=== PATIENT | male | born 1970 | race Caucasian/White ===

== ENCOUNTER → 2016-12-28 | Outpatient (CLI) | payer OTHER ==
--- NOTE | 2016-12-28 14:19 | CT ---
EXAMINATION TYPE: CT abdomen pelvis w con, CT abdomen wo con DATE OF EXAM: 12/28/2016 COMPARISON: NONE HISTORY: Liver hemangioma, nausea, diarrhea. Fullness after eating, change in bowel habits (accessio n [id number]), Liver hemangioma, Nausea, diarrhea, change in bowel habits and fullness after eating (ac cession [id number]) CT DLP: 1331.0 mGycm CONTRAST: Unenhanced followed by CT scan of the abdomen and pelvis is performed with Oral Contrast and with IV Contrast, patient injected with 100 ml mL of Omnipaque 300. FINDINGS: LUNG BASES-: No visible nodule. No infiltrate. LIVER/GB: No calcified gallstones. There is a simple cyst anterior segment right hepatic lobe measu ring 1.7 cm. I do not see evidence for hemangioma or solid mass at this time within the liver. Biliar y tree is of normal caliber. PANCREAS: No inflammation. No distinct mass. SPLEEN: No splenic enlargement. No lesion seen. ADRENALS: No nodule. No thickening. KIDNEYS/BLADDER: No hydronephrosis. No nephrolithiasis. No disctinct renal mass. Urinary bladder g rossly unremarkable. BOWEL: Normal appendix. Wall thickening involving the sigmoid colon and rectum may reflect proctocoli tis. Correlate clinically. The remainder of the colon and small bowel are of normal caliber. GENITAL ORGANS: No gross abnormality. LYMPH NODES: Multiple small predominantly subcentimeter lymph nodes within the small bowel mesentery although one or 2 lymph nodes measure slightly greater than 1 cm. This is nonspecific. AORTA: No significant abnormality. OSSEOUS STRUCTURES: No significant abnormality is seen. OTHER: No significant additional abnormality is seen. IMPRESSION: 1. Simple hepatic cyst. 2. Correlate for proctocolitis. 3. Nonspecific lymph nodes within the small bowel mesentery as discussed.
== END | disposition home or self-care (01) ==
LOC: RADCTMAIN 11:42
PROVIDERS: ATTEND Family Medicine
DX: K76.89 Other specified diseases of liver (principal); K51.919 Ulcerative colitis, unspecified with unspecified complications; R59.0 Localized enlarged lymph nodes; R19.7 Diarrhea, unspecified
CPT/HCPCS: 74150; 74177; Q9967

== ENCOUNTER 2017-10-10 08:01 | Observation (INO) | payer OTHER ==
[2017-10-10] MEDS ORDERED: SODIUM CHLORIDE 0.9% 1,000 ML IV STA (08:23)
[2017-10-10] MEDS ORDERED: ONDANSETRON 4 MG/2 ML VIAL IVP STA (08:23)
[2017-10-10] MEDS ORDERED: SODIUM CHLORIDE 0.9% 500 ML IV STA (08:23)
[2017-10-10] MEDS ORDERED: LORazepam 1 MG TAB PO STA (08:25)
[2017-10-10 08:57] LABS: Basophils % (A) 0 %; Eosinophils # (A) 0.2 k/uL (0-0.7); Eosinophils % (A) 2 %; HCT 45.9 % (39.0-53.0); HGB 15.6 gm/dL (13.0-17.5); Lymphocytes # (A) 1.8 k/uL (1.0-4.8); Lymphocytes % (A) 26 %; MCH 27.8 pg (25.0-35.0); MCHC 33.9 g/dL (31.0-37.0); MCV 81.8 fL (80.0-100.0); Mean Platelet Volume 9.1; Monocytes # (A) 0.4 k/uL (0-1.0); Monocytes % (A) 6 %; Neutrophils # (A) 4.5 k/uL (1.3-7.7); Neutrophils % (A) 64 %; Platelet Count 153 k/uL (150-450); RBC 5.61 m/uL (4.30-5.90); RDW 12.7 % (11.5-15.5); WBC 7.1 k/uL (3.8-10.6)
--- NOTE | 2017-10-10 09:02 | CT ---
EXAMINATION TYPE: CT brain wo con DATE OF EXAM: 10/10/2017 COMPARISON: NONE HISTORY: Headache CT DLP: 1201 mGycm. Automated Exposure Control for Dose Reduction was Utilized. TECHNIQUE: CT scan of the head is performed without contrast. FINDINGS: There is no acute intracranial hemorrhage, mass effect, or midline shift identified. The ventricles and sulci are within normal limits in size. Changes of chronic sinusitis noted. IMPRESSION: No acute intracranial hemorrhage, mass effect, or midline shift is seen. Correlate for c hronic sinusitis.
[2017-10-10 09:13] LABS: ALT 29 U/L (21-72); AST 21 U/L (17-59); Albumin 4.1 g/dL (3.5-5.0); Alkaline Phosphatase 62 U/L (38-126); Anion Gap 12 mmol/L; Blood Urea Nitrogen 18 mg/dL (9-20); C Reactive Protein <5.0 mg/L (<10.0); Calcium 8.9 mg/dL (8.4-10.2); Carbon Dioxide 26 mmol/L (22-30); Chloride 105 mmol/L (98-107); Glucose 106 mg/dL (74-99); Potassium 4.3 mmol/L (3.5-5.1); Sodium 143 mmol/L (137-145); Total Bilirubin 0.7 mg/dL (0.2-1.3); Total Protein 6.7 g/dL (6.3-8.2)
--- NOTE | 2017-10-10 09:32 | ED ---
Dizziness HPI - General Chief Complaint: Dizziness Stated Complaint: Dizziness Time Seen by Provider: 10/10/17 08:14 Source: patient Mode of arrival: ambulatory Limitations: no limitations - History of Present Illness Initial Comments: 47 years old male resents with the dizziness started this morning, he went to bed last night feeling fine he has some alcohol last night. His complaining about some headaches, dizziness no blurred vision no slurred speech no neck stiffness no chest pain no shortness of breath no abdominal pain no frequency urgency dysuria his gait was unsteady this morning actually he fell he denies any any head injury or any injuries to the upper or lower extremities as well as her to sulfa (fall this morning. Review of system is unremarkable otherwise - Related Data Home Medications Medication Instructions Recorded Confirmed No Known Home Medications [No 10/10/17 10/10/17 Known Home Medications] Allergies Allergy/AdvReac Type Severity Reaction Status Date / Time No Known Allergies Allergy Verified 10/10/17 08:55 Review of Systems ROS Statement: Those systems with pertinent positive or pertinent negative responses have been documented in the HPI. ROS Other: All systems not noted in ROS Statement are negative. Past Medical History Past Medical History: No Reported History History of Any Multi-Drug Resistant Organisms: None Reported Past Surgical History: No Surgical Hx Reported Past Psychological History: No Psychological Hx Reported Smoking Status: Never smoker Past Alcohol Use History: Occasional Past Drug Use History: None Reported General Exam - General Exam Comments Initial Comments: General: The patient is awake , he looks pale and nauseous GCS is 15 Skin: Skin is warm and dry and no rashes or lesions are noted. Eye: Pupils are equal, round and reactive to light, extra-ocular movements are intact; there is normal conjunctiva bilaterally. Ears, nose, mouth and throat: There are moist mucous membranes and no oral lesions. Neck: The neck is supple, there is no tenderness or JVD. Cardiovascular: There is a regular rate and rhythm. No murmur, rub or gallop is appreciated. Respiratory: To auscultation bilateral, no wheezing no rhonchi no distress respiratory cardoza noticed Gastrointestinal: Soft, non-distended, non-tender abdomen without masses or organomegaly noted. There is no rebound or guarding present. Bowel sounds are unremarkable. Back: There is no tenderness to palpation in the midline. There is no obvious deformity. Musculoskeletal: Normal ROM, no tenderness, There is no pedal edema. There is no calf tenderness or swelling. No cords were appreciated. Neurological: CN II-XII intact, Cranial nerves III through XII are intact. There are no obvious motor or sensory deficits. Coordination appears grossly intact. Speech is normal. Psychiatric: Cooperative, appropriate mood & affect, normal judgment. Limitations: no limitations Course Vital Signs 10/10/17 10/10/17 10/10/17 08:03 09:43 11:02 Temperature 97.3 F L Pulse Rate 83 88 73 Respiratory 20 16 16 Rate Blood Pressure 157/85 136/79 145/73 O2 Sat by Pulse 98 96 96 Oximetry 10/10/17 13:05 Temperature Pulse Rate 61 Respiratory 14 Rate Blood Pressure 121/76 O2 Sat by Pulse 99 Oximetry Patient was reassessed again at 951, he still has his eyes closed and he still feels quite dizzy, concerned about a brainstem stem infarct his gait is quite unsteady verified and admit him under Dr. Wang service and will consult neurology EKG Findings - EKG Comments: EKG Findings:: Abdomen EKG is a normal sinus rhythm ventricular rate is 83 WV interval is 164 QRS duration is 86 QT/QTc is 370/434 review of this EKG showed no ST elevation or ST depression Medical Decision Making - Lab Data Result diagrams: 10/10/17 08:20 10/10/17 08:20 Lab Results 10/10/17 10/10/17 10/10/17 Range/Units 08:20 08:20 08:20 WBC 7.1 (3.8-10.6) k/uL RBC 5.61 (4.30-5.90) m/uL Hgb 15.6 (13.0-17.5) gm/dL Hct 45.9 (39.0-53.0) % MCV 81.8 (80.0-100.0) fL MCH 27.8 (25.0-35.0) pg MCHC 33.9 (31.0-37.0) g/dL RDW 12.7 (11.5-15.5) % Plt Count 153 (150-450) k/uL Neutrophils % 64 % Lymphocytes % 26 % Monocytes % 6 % Eosinophils % 2 % Basophils % 0 % Neutrophils # 4.5 (1.3-7.7) k/uL Lymphocytes # 1.8 (1.0-4.8) k/uL Monocytes # 0.4 (0-1.0) k/uL Eosinophils # 0.2 (0-0.7) k/uL Basophils # 0.0 (0-0.2) k/uL Sodium 143 (137-145) mmol/L Potassium 4.3 (3.5-5.1) mmol/L Chloride 105 (98-107) mmol/L Carbon Dioxide 26 (22-30) mmol/L Anion Gap 12 mmol/L BUN 18 (9-20) mg/dL Creatinine 0.95 (0.66-1.25) mg/dL Est GFR (CKD-EPI)AfAm >90 (>60 ml/min/1.73 sqM) Est GFR (CKD-EPI)NonAf >90 (>60 ml/min/1.73 sqM) Glucose 106 H (74-99) mg/dL Plasma Lactic Acid Delmer (0.7-2.0) mmol/L Calcium 8.9 (8.4-10.2) mg/dL Total Bilirubin 0.7 (0.2-1.3) mg/dL AST 21 (17-59) U/L ALT 29 (21-72) U/L Alkaline Phosphatase 62 (38-126) U/L Troponin I <0.012 (0.000-0.034) ng/mL C-Reactive Protein <5.0 (<10.0) mg/L Total Protein 6.7 (6.3-8.2) g/dL Albumin 4.1 (3.5-5.0) g/dL 10/10/17 Range/Units 08:20 WBC (3.8-10.6) k/uL RBC (4.30-5.90) m/uL Hgb (13.0-17.5) gm/dL Hct (39.0-53.0) % MCV (80.0-100.0) fL MCH (25.0-35.0) pg MCHC (31.0-37.0) g/dL RDW (11.5-15.5) % Plt Count (150-450) k/uL Neutrophils % % Lymphocytes % % Monocytes % % Eosinophils % % Basophils % % Neutrophils # (1.3-7.7) k/uL Lymphocytes # (1.0-4.8) k/uL Monocytes # (0-1.0) k/uL Eosinophils # (0-0.7) k/uL Basophils # (0-0.2) k/uL Sodium (137-145) mmol/L Potassium (3.5-5.1) mmol/L Chloride (98-107) mmol/L Carbon Dioxide (22-30) mmol/L Anion Gap mmol/L BUN (9-20) mg/dL Creatinine (0.66-1.25) mg/dL Est GFR (CKD-EPI)AfAm (>60 ml/min/1.73 sqM) Est GFR (CKD-EPI)NonAf (>60 ml/min/1.73 sqM) Glucose (74-99) mg/dL Plasma Lactic Acid Delmer 0.9 (0.7-2.0) mmol/L Calcium (8.4-10.2) mg/dL Total Bilirubin (0.2-1.3) mg/dL AST (17-59) U/L ALT (21-72) U/L Alkaline Phosphatase (38-126) U/L Troponin I (0.000-0.034) ng/mL C-Reactive Protein (<10.0) mg/L Total Protein (6.3-8.2) g/dL Albumin (3.5-5.0) g/dL Disposition Clinical Impression: Intractable nausea and vomiting, Dizziness Disposition: ADMITTED IP TO THIS HOSP Condition: Good Referrals: Belkis Mares DO [Primary Care Provider] - 1-2 days
[2017-10-10] MEDS ORDERED: ALPRAZolam 0.25 MG TAB PO PRN (10:12)
[2017-10-10] MEDS ORDERED: ONDANSETRON 4 MG/2 ML VIAL IVP PRN (10:12)
[2017-10-10] MEDS ORDERED: NALOXONE 0.4 MG/ML 1 ML VIAL IV PRN (10:12)
[2017-10-10] MEDS ORDERED: MECLIZINE 25 MG TAB PO PRN (10:18)
--- NOTE | 2017-10-10 13:48 | P.HPIM ---
History of Present Illness H&P Date: 10/10/17 Chief Complaint: Dizziness and unsteady gait This is a 47-year-old male, a patient of Dr. Mckay. He has a known past medical history of headaches and colitis that was diagnosed about 5 years ago. He does not take any medications for it and occasionally has blood in his stool. Patient reports that he was in good state of health as of last night. He woke up feeling very dizzy and felt like he might pass out. He also had an unsteady gait. Patient also had a fall. He denied any injury. Patient was able to drive to work. And a family member brought him home and to the ER. Also has had a mild headache with nausea and vomiting. Patient denies any vision changes slurred speech any numbness or tingling or weakness on one side of the body. Denies any hearing loss earache or ringing in ears. Denies any fever or chills or sweats. Denies any bowel movement changes. Denies any burning with urination. Denies any chest pain or shortness of breath. Patient does report a small amount of blood in his stools a few days ago. But per patient this is nothing new. Last colonoscopy was about [address] Rose. Computed tomography scan of brain showed no acute changes. EKG showed a normal sinus rhythm. Neurology has been consulted. Carotid and echo have been ordered. Patient was given Antivert in the ER with some improvement. He does admit to having one beer last night. Patient denies any regular alcohol use or tobacco smoking. Denies ever having symptoms like this in the past. Patient describes the dizziness as the room is spinning around him. Review of Systems Please refer to HPI otherwise unremarkable Past Medical History Past Medical History: No Reported History Additional Past Medical History / Comment(s): Colitis and headaches History of Any Multi-Drug Resistant Organisms: None Reported Past Surgical History: No Surgical Hx Reported Past Psychological History: No Psychological Hx Reported Smoking Status: Never smoker Past Alcohol Use History: Occasional Past Drug Use History: None Reported Medications and Allergies Home Medications Medication Instructions Recorded Confirmed Type No Known Home Medications [No 10/10/17 10/10/17 History Known Home Medications] Allergies Allergy/AdvReac Type Severity Reaction Status Date / Time No Known Allergies Allergy Verified 10/10/17 08:55 Physical Exam Vitals: Vital Signs Temp Pulse Resp BP Pulse Ox 10/10/17 13:05 61 14 121/76 99 10/10/17 11:02 73 16 145/73 96 10/10/17 09:43 88 16 136/79 96 10/10/17 08:03 97.3 F L 83 20 157/85 98 Intake and Output 10/09/17 10/10/17 10/10/17 22:59 06:59 14:59 Other: Weight 96.162 kg Head normocephalic. No neck stiffness. Tenderness with palpation in the back of the head on the right side Neck supple Lungs clear to auscultation bilaterally no wheezing or crackles Heart regular rate and rhythm S1-S2, no rub or gallop Abdomen is soft epigastric tenderness nondistended positive bowel sounds no hepatosplenomegaly Extremities no edema Neuro alert and orientated to 3 Results CBC & Chem 7: 10/10/17 08:20 10/10/17 08:20 Labs: Abnormal Lab Results - Last 24 Hours (Table) 10/10/17 Range/Units 08:20 Glucose 106 H (74-99) mg/dL Assessment and Plan Assessment: 1. Severe dizziness with unsteady gait and fall: Computed tomography scan of the brain was negative. Antivert given in the emergency room. Also check carotid ultrasound and echo. EKG showing a normal sinus rhythm. Continue IV fluids. Neurology consulted. Check orthostatic blood pressure 2. Mild epigastric tenderness possibly related to patient's vomiting. will check amylase and lipase 3. History of colitis and occasional blood in his stools. Hemoglobin stable at 15.6. Last colonoscopy 5 years ago 4. History of headaches GI prophylaxis Protonix and DVT prophylaxis subcu heparin Time with Patient: Greater than 30 (Greater than 50% of the total time spent in counseling and coordination of care.I performed an examination of the patient and discussed their management with the physician Hopper Operator. I have reviewed the Physician Hopper Operator's notes and agree with the documented findings and plan of care)
[2017-10-10 14:34] LABS: Amylase 69 U/L (30-110); Lipase 79 U/L (23-300)
--- NOTE | 2017-10-10 14:41 | US ---
EXAMINATION TYPE: US carotid duplex BILAT DATE OF EXAM: 10/10/2017 COMPARISON: NONE CLINICAL HISTORY: dizziness. EXAM MEASUREMENTS: RIGHT: Peak Systolic Velocity (PSV) cm/sec ----- Right CCA: 100.4 ----- Right ICA: 57.1 ----- Right ECA: 93.8 ICA/CCA ratio: 0.57 RIGHT: End Diastole cm/sec ----- Right CCA: 16.3 ----- Right ICA: 10.8 ----- Right ECA: 10.7 LEFT: Peak Systolic Velocity (PSV) cm/sec ----- Left CCA: 91.3 ----- Left ICA: 69.2 ----- Left ECA: 87.4 ICA/CCA ratio: 0.8 LEFT: End Diastole cm/sec ----- Left CCA: 18.7 ----- Left ICA: 12.7 ----- Left ECA: 10.0 VERTEBRALS (direction of flow): Right Vertebral: Antegrade Left Vertebral: Antegrade Rhythm: Normal No significant velocity elevations. IMPRESSION: No hemodynamically significant stenosis within either carotid arterial system as visuali zed.
[2017-10-10] MEDS: PANTOPRAZOLE 40 MG TABLET PO SCH (15:25)
[2017-10-10] MEDS: ACETAMINOPHEN TAB 325 MG TAB PO PRN (17:54)
--- NOTE | 2017-10-10 19:10 | P.CNNES ---
History of Present Illness Consult date: 10/10/17 Reason for Consult: Patient admitted with dizziness and unsteady gait. History of Present Illness: This patient is a 47-year-old left-handed white male who was in his usual state of health until early this morning. Patient had awakened is normal at about 6 AM and by 6:30 when he got out of bed he was having symptoms of acute vertigo. He states the room was spinning around him and he became extremely nauseated and actually vomited. He still felt that his symptoms would improve any decided to go to work with his son. Unfortunately his symptoms worsened at work and his son drove him back home. When he got home he continued to have severe spinning sensation as if the room was spinning around him. He was still very nauseated and actually threw up once. His son and decided to bring him to the emergency room for further evaluation. The patient has no previous history of vertigo. He was seen in the ER by Dr. Roa. He was sent for a computed tomography scan of the brain which revealed no acute intracranial hemorrhage, mass effect, or midline shift. There was evidence of chronic sinusitis. Patient underwent a carotid Doppler ultrasound today which revealed no significant carotid artery stenosis. Patient states he has no previous history of head trauma or head injury recently. He denies any previous history of seizures. He was seen in the emergency room and was given a dose of Antivert which did seem to help his symptoms. The patient denies any neck pain or neck stiffness at this time. He has not had any severe headache symptoms. His overall symptoms of dizziness and nausea vomiting have improved since admission to the hospital. Neurology is now been consulted for further evaluation and recommendations. Review of Systems Constitutional: Denies chills, Denies fever Eyes: denies blurred vision, denies pain Ears, nose, mouth and throat: Reports vertigo, Denies headache, Denies sore throat Cardiovascular: Denies chest pain, Denies shortness of breath Respiratory: Denies cough Gastrointestinal: Denies abdominal pain, Denies diarrhea, Denies nausea, Denies vomiting Musculoskeletal: Denies myalgias Integumentary: Denies pruritus, Denies rash Neurological: Reports vertigo, Denies numbness, Denies weakness Psychiatric: Denies anxiety, Denies depression Endocrine: Denies fatigue, Denies weight change Past Medical History Past Medical History: GERD/Reflux Additional Past Medical History / Comment(s): Colitis and headaches History of Any Multi-Drug Resistant Organisms: None Reported Past Surgical History: No Surgical Hx Reported Additional Past Surgical History / Comment(s): colonoscopy Past Anesthesia/Blood Transfusion Reactions: Motion Sickness Additional Past Anesthesia/Blood Transfusion Reaction / Comment(s): never recieved blood Smoking Status: Former smoker - Past Family History Mother Family Medical History: Diabetes Mellitus, Fibromyalgia Additional Family Medical History / Comment(s): "heart problems" Father Family Medical History: Pneumonia Additional Family Medical History / Comment(s): home o2 Medications and Allergies Home Medications Medication Instructions Recorded Confirmed Type No Known Home Medications [No 10/10/17 10/10/17 History Known Home Medications] Allergies Allergy/AdvReac Type Severity Reaction Status Date / Time No Known Allergies Allergy Verified 10/10/17 08:55 Physical Examination - Vital Signs Vital Signs: Vital Signs Temp Pulse Pulse Resp BP BP Pulse Ox 10/10/17 17:47 97.8 F 82 18 155/88 97 10/10/17 17:01 77 16 148/79 98 10/10/17 13:05 61 14 121/76 99 10/10/17 11:02 73 16 145/73 96 10/10/17 09:43 88 16 136/79 96 10/10/17 08:03 97.3 F L 83 20 157/85 98 Intake and Output 10/10/17 10/10/17 10/10/17 06:59 14:59 22:59 Other: # Voids 0 Weight 96.162 kg - Constitutional General appearance: average body habitus, cooperative - EENT EENT: PERRL, mucous membranes moist - Respiratory Respiratory: lungs clear, normal breath sounds - Cardiovascular Cardiovascular: regular rate, normal S1, normal S2 Extremities: no peripheral edema bilaterally - Gastrointestinal Gastrointestinal: normoactive bowel sounds - Integumentary Integumentary: normal - Neurologic Cranial nerve examination: PERRL, EOMI, VFF, V1/V2/V3 grossly intact, face symmetric, tongue midline, intact gag reflex, intact corneal reflex, normal palatal elevation Speech examination: intact Sensorimotor examination: intact Detailed motor examination: grossly full strength in all extremities Motor examination - right side: 4/5: biceps, triceps, wrist flexion, wrist extension, field hockey coach, hip flexors, knee extensors, dorsiflexion, toe extension (EHL) , plantarflexion Motor examination - left side: 4/5: biceps, triceps, wrist flexion, wrist extension, field hockey coach, hip flexors, knee extensors, dorsiflexion, toe extension (EHL) , plantarflexion Detailed sensory examination: intact Reflex and gait examination: intact Reflexes: 1+: ankle, bicep, knee, tricep - Musculoskeletal Musculoskeletal: no pain - Psychiatric Psychiatric: mood/affect appropriate, cooperative Results - Laboratory Findings CBC and BMP: 10/10/17 08:20 10/10/17 08:20 Abnormal Lab Findings: Abnormal Labs 10/10/17 08:20 Glucose 106 H Assessment and Plan (1) Acute onset of severe vertigo Current Visit: Yes Status: Acute Code(s): R42 - DIZZINESS AND GIDDINESS SNOMED Code(s): 327201107 (2) Benign paroxysmal positional vertigo Current Visit: Yes Status: Acute Code(s): H81.10 - BENIGN PAROXYSMAL VERTIGO , UNSPECIFIED EAR SNOMED Code(s): 020804093 (3) Dizziness Current Visit: Yes Status: Acute Code(s): R42 - DIZZINESS AND GIDDINESS SNOMED Code(s): 978856180 (4) Intractable nausea and vomiting Current Visit: Yes Status: Acute Code(s): R11.2 - NAUSEA WITH VOMITING, UNSPECIFIED SNOMED Code(s): 159543989 Plan: This patient is a 47-year-old left-handed white male who was brought into the emergency room today for evaluation of acute onset of dizziness and vertigo upon awakening early this morning. Patient awakened at 6:30 AM and was very vertiginous at home. He still decided to go to work with his son and apparently became more symptomatic at work and his son drove him back home. He was feeling excessively nausea vomiting and actually vomited at home and at this point the family decided to bring him to the emergency room at [facility]. He was seen in the ER by Dr. Roa. He underwent a computed tomography scan of the brain which was negative for any acute changes. He was given 1 dose of Antivert in the ER and admitted to the hospital. He underwent a carotid Doppler ultrasound which came back negative for any carotid artery stenosis. His neurological examination at this time is nonfocal. His clinical presentation suggest acute labyrinthitis or a form of benign paroxysmal positional vertigo. We would recommend to keep the patient on low- dose Antivert for at least 2 weeks with slowed weaning thereafter. We would recommend a MRI of the brain to rule out any possibility of brainstem or cerebellar involvement with his presentation. His carotid Doppler study was negative for any carotid artery stenosis. We will continue close neurological follow-up for the patient during this admission. We have advised the patient to follow a low-sodium diet at home. He is to avoid excessive fluid intake as well. We will continue to monitor his progress closely and we'll give further recommendations pending his neuro imaging study. His overall prognosis at this time remains fair. Time with Patient: Greater than 30
[2017-10-10] MEDS: MECLIZINE 12.5 MG TAB PO SCH (21:53)
[2017-10-10] MEDS: HEPARIN SODIUM,PORCINE 5,000 UNIT/ML 1 ML VIAL SQ SCH (21:53)
[2017-10-11] MEDS: PANTOPRAZOLE 40 MG TABLET PO SCH (05:58)
[2017-10-11 06:24] LABS: Basophils % (A) 0 %; Eosinophils # (A) 0.2 k/uL (0-0.7); Eosinophils % (A) 3 %; HCT 47.5 % (39.0-53.0); HGB 15.5 gm/dL (13.0-17.5); Lymphocytes % (A) 33 %; MCHC 32.7 g/dL (31.0-37.0); MCV 82.5 fL (80.0-100.0); Mean Platelet Volume 8.6; Monocytes # (A) 0.4 k/uL (0-1.0); Monocytes % (A) 6 %; Neutrophils # (A) 3.4 k/uL (1.3-7.7); Neutrophils % (A) 56 %; Platelet Count 141 k/uL (150-450); RBC 5.76 m/uL (4.30-5.90); RDW 12.6 % (11.5-15.5); WBC 6.2 k/uL (3.8-10.6)
[2017-10-11 06:54] LABS: ALT 20 U/L (21-72); AST 18 U/L (17-59); Albumin 3.7 g/dL (3.5-5.0); Alkaline Phosphatase 57 U/L (38-126); Anion Gap 11 mmol/L; Blood Urea Nitrogen 17 mg/dL (9-20); Calcium 8.8 mg/dL (8.4-10.2); Carbon Dioxide 27 mmol/L (22-30); Chloride 104 mmol/L (98-107); Glucose 89 mg/dL (74-99); Potassium 4.3 mmol/L (3.5-5.1); Sodium 142 mmol/L (137-145); Total Bilirubin 0.5 mg/dL (0.2-1.3); Total Protein 6.2 g/dL (6.3-8.2)
[2017-10-11] MEDS: MECLIZINE 12.5 MG TAB PO SCH ×2 (09:08→19:52)
[2017-10-11] MEDS: HEPARIN SODIUM,PORCINE 5,000 UNIT/ML 1 ML VIAL SQ SCH ×2 (09:08→19:52)
--- NOTE | 2017-10-11 10:58 | P.PN ---
Subjective Progress Note Date: 10/11/17 This is a 47-year-old male, a patient of Dr. Mckay. He has a known past medical history of headaches and colitis that was diagnosed about 5 years ago. He does not take any medications for it and occasionally has blood in his stool. Patient reports that he was in good state of health as of last night. He woke up feeling very dizzy and felt like he might pass out. He also had an unsteady gait. Patient also had a fall. He denied any injury. Patient was able to drive to work. And a family member brought him home and to the ER. Also has had a mild headache with nausea and vomiting. Patient denies any vision changes slurred speech any numbness or tingling or weakness on one side of the body. Denies any hearing loss earache or ringing in ears. Denies any fever or chills or sweats. Denies any bowel movement changes. Denies any burning with urination. Denies any chest pain or shortness of breath. Patient does report a small amount of blood in his stools a few days ago. But per patient this is nothing new. Last colonoscopy was about [address] Rose. Computed tomography scan of brain showed no acute changes. EKG showed a normal sinus rhythm. Neurology has been consulted. Carotid and echo have been ordered. Patient was given Antivert in the ER with some improvement. He does admit to having one beer last night. Patient denies any regular alcohol use or tobacco smoking. Denies ever having symptoms like this in the past. Patient describes the dizziness as the room is spinning around him. 10/11/2017 patient still reporting some dizziness with movement. His unsteady gait has resolved. He's been up and ambulating to the bathroom with no difficulty. Patient seen by neurology they've added the Antivert twice a day. Patient has had some improvement. Likely dizziness is related to benign proximal positional vertigo and possibly acute labyrinthitis. Neurology recommending Antivert for 2 weeks. Carotid ultrasound was negative. Patient is scheduled for an MRI of the brain to rule out any brainstem stroke. Echo is also pending. Patient denies any bowel movement changes. Denies any further blood in his stools. Denies any chest pain or shortness of breath. Denies any nausea or vomiting. Objective - Vital Signs Vital signs: Vital Signs Temp 97.9 F 10/11/17 08:00 Pulse 76 10/11/17 08:00 Resp 14 10/11/17 08:00 BP 128/75 10/11/17 08:00 Pulse Ox 98 10/11/17 08:00 Intake & Output 10/10/17 10/11/17 10/11/17 18:59 06:59 18:59 Intake Total 0 240 Balance 0 240 Weight 96.162 kg 91.4 kg Intake: Intake, IV Titration 0 Amount Sodium Chloride 0.9% 1, 0 000 ml @ 75 mls/hr IV . [id number] STA Rx#:[id number] Oral 240 Other: # Voids 0 1 - Exam Head normocephalic Neck supple Lungs clear to auscultation bilaterally no wheezing or crackles Heart regular rate and rhythm S1-S2, no rub or gallop Abdomen is soft nontender nondistended positive bowel sounds no hepatosplenomegaly Extremities no edema Neuro alert and orientated to 3 Having patient sitting up and turn his head causes him to be dizzy - Labs CBC & Chem 7: 10/11/17 05:52 10/11/17 05:52 Labs: Abnormal Lab Results - Last 24 Hours (Table) 10/11/17 10/11/17 Range/Units 05:52 05:52 Plt Count 141 L (150-450) k/uL ALT 20 L (21-72) U/L Total Protein 6.2 L (6.3-8.2) g/dL Assessment and Plan Assessment: 1. Severe dizziness with unsteady gait and fall: Likely related to his severe vertigo from benign paroxysmal positional vertical or an acute labyrinthitis. Neurology has evaluated patient and started him on Antivert 12.5 mg twice a day. Computed tomography scan of the brain was negative. Carotid ultrasound was negative. EKG showing a normal sinus rhythm. Continue IV fluids. Neurology consulted. Echo and MRI of the brain are pending 2. Mild epigastric tenderness possibly related to patient's vomiting. Resolved. Amylase lipase normal 3. History of colitis and occasional blood in his stools. Hemoglobin stable at 15.6. Last colonoscopy 5 years ago 4. History of headaches GI prophylaxis Protonix and DVT prophylaxis subcu heparin I performed an examination of the patient and discussed their management with the physician Poker Machine Attendant. I have reviewed the Physician Poker Machine Attendant's notes and agree with the documented findings and plan of care
--- NOTE | 2017-10-11 11:33 | ECHOF ---
Referral Reason:dizziness, possible CVA MEASUREMENTS -------- HEIGHT: 172.7 cm WEIGHT: 96.2 kg BP: RVIDd: 3.1 cm (< 3.3) IVSd: 1.4 cm (0.6 - 1.1) LVIDd: 3.5 cm (3.9 - 5.3) LVPWd: 1.2 cm (0.6 - 1.1) IVSs: 1.4 cm LVIDs: 3.3 cm LVPWs: 1.3 cm LA Diam: 3.7 cm (2.7 - 3.8) LAESV Index (A-L): 25.66 ml/m Ao Diam: 3.7 cm (2.0 - 3.7) AV Cusp: 2.5 cm (1.5 - 2.6) LA Diam: 3.7 cm (2.7 - 3.8) MV EXCURSION: 19.783 mm (> 18.000) MV EF SLOPE: 75 mm/s (70 - 150) EPSS: 1.3 cm MV E Xiang: 0.49 m/s MV DecT: 262 ms MV A Xiang: 0.57 m/s MV E/A Ratio: 0.87 RAP: 5.00 mmHg RVSP: 12.08 mmHg FINDINGS -------- Sinus rhythm. This was a technically good study. The left ventricular size is normal. There is borderline concentric left ventricular hypertrophy. Overall left ventricular systolic function is normal with, an EF between 55 - 60 %. The right ventricle is normal in size. The left atrial size is normal. The right atrial size is normal. The aortic valve is trileaflet, and appears structurally normal. No aortic stenosis or regurgitation. Mild mitral annular calcification present. Mild mitral regurgitation is present. Mild tricuspid regurgitation present. There is no evidence of pulmonary hypertension. The right v entricular systolic pressure, as measured by Doppler, is 12.08mmHg. There is no pulmonic regurgitation present. The aortic root size is normal. There is no pericardial effusion. CONCLUSIONS -------- 1. The left ventricular size is normal. 2. There is borderline concentric left ventricular hypertrophy. 3. Overall left ventricular systolic function is normal with, an EF between 55 - 60 %. 4. The aortic valve is trileaflet, and appears structurally normal. No aortic stenosis or regurgitati on. 5. Mild mitral annular calcification present. 6. Mild mitral regurgitation is present. 7. Mild tricuspid regurgitation present. 8. There is no evidence of pulmonary hypertension. 9. The right ventricular systolic pressure, as measured by Doppler, is 12.08mmHg. 10. There is no pulmonic regurgitation present. 11. The aortic root size is normal. 12. There is no pericardial effusion. COREMAKER EXPERIMENTAL: Grecia Hong RDCS
[2017-10-11] MEDS: ACETAMINOPHEN TAB 325 MG TAB PO PRN (11:46)
--- NOTE | 2017-10-11 13:37 | MR ---
EXAMINATION TYPE: MR brain wo con DATE OF EXAM: 10/11/2017 12:56 PM COMPARISON: NONE HISTORY: Patient with acute vertigo and vomitting. Multiplanar and multispin-echo imaging of the brain was performed . The ventricles, basal cisterns and sulci overlying the cerebral convexities are within normal limits. There is no evidence for midline shift or mass effect. Acute intracranial hemorrhage or extra-axial collection is not evident. The brain parenchyma reveals no abnormal increased signal. No acute edema is identified. Moderate pansinusitis. Mastoid air cells are well-aerated.. IMPRESSION: Unremarkable MRI of the brain. Moderate pansinusitis.
[2017-10-11] MEDS: BUTA/APAP/CAF/COD 50-325-40-30 CAP PO PRN ×2 (13:52→19:51)
[2017-10-11] MEDS: cefTRIAXone IN SWFI 1,000 MG/10 ML SYRINGE IVP SCH (14:01)
--- NOTE | 2017-10-11 19:49 | P.PN ---
Subjective Progress Note Date: 10/11/17 This patient is a pleasant 47-year-old male who was admitted yesterday for evaluation of dizziness and unsteady gait. Patient's clinical history was suggesting possibility of acute labyrinthitis. He was started on low-dose Antivert yesterday and has shown slight improvement. He underwent a MRI of the brain today for further evaluation of his vertigo symptoms. MRI of the brain was completed today and is reported to be negative for any acute stroke or hemorrhage. There was moderate degree of pansinusitis noted. Case was discussed today with internal medicine and they have recommended to start him on antibiotics for treatment of the pansinusitis. The patient may benefit from higher dose of Antivert if he is not responding to the current dosage. Currently the patient is resting comfortably in bed. He states his headache did respond Fiorocet. He did experience some mild dizziness this morning when he got up and went to the bathroom but this has since dissipated. We anticipate the patient may be able to be discharged home tomorrow on Antivert for the next 2 weeks. If he is still symptomatic tomorrow morning the dose of Antivert may be increased to 25 mg by mouth twice a day. Patient should continue his current antibiotic coverage for 5-7 days. We'll be happy to reevaluate the patient in the outpatient neurology clinic in 2-3 weeks. Overall the patient seems to be making good progress. His symptoms are consistent with acute labyrinthitis. Once again his MRI of the brain did come back negative for any evidence of acute stroke or hemorrhage. We will continue to follow his progress closely during this admission. Objective - Vital Signs Vital signs: Vital Signs Temp 97.9 F 10/11/17 08:00 Pulse 80 10/11/17 12:00 Resp 14 10/11/17 12:00 BP 138/75 10/11/17 12:00 Pulse Ox 98 10/11/17 12:00 Intake & Output 10/10/17 10/11/17 10/11/17 18:59 06:59 18:59 Intake Total 0 480 Balance 0 480 Weight 96.162 kg 91.4 kg Intake: Intake, IV Titration 0 Amount Sodium Chloride 0.9% 1, 0 000 ml @ 75 mls/hr IV . [id number] STA Rx#:[id number] Oral 480 Other: # Voids 0 1 - Exam Physical examination: PHYSICAL EXAMINATION: Patient is resting comfortably in bed. VITAL SIGNS: Blood pressure is [138/75]. Heart rate is [82]. Respiration is [16] . Temperature is [97.0]. HEENT: Head is atraumatic, neck is supple, there were no carotid bruits. CHEST: Lungs are clear to auscultation and percussion. CARDIAC: S1, S2 normal rate and rhythm. There is no murmur. ABDOMEN: Soft and nontender. Bowel sounds are present. EXTREMITIES: There is no pedal edema. Peripheral pulses are present. Neurological examination: Patient's neurological examination is unchanged from yesterday. - Labs CBC & Chem 7: 10/11/17 05:52 10/11/17 05:52 Labs: Abnormal Lab Results - Last 24 Hours (Table) 10/11/17 10/11/17 Range/Units 05:52 05:52 Plt Count 141 L (150-450) k/uL ALT 20 L (21-72) U/L Total Protein 6.2 L (6.3-8.2) g/dL Assessment and Plan (1) Acute onset of severe vertigo Current Visit: Yes Status: Acute Code(s): R42 - DIZZINESS AND GIDDINESS SNOMED Code(s): 817466879 (2) Benign paroxysmal positional vertigo Current Visit: Yes Status: Acute Code(s): H81.10 - BENIGN PAROXYSMAL VERTIGO , UNSPECIFIED EAR SNOMED Code(s): 383169318 (3) Dizziness Current Visit: Yes Status: Acute Code(s): R42 - DIZZINESS AND GIDDINESS SNOMED Code(s): 081534992 (4) Intractable nausea and vomiting Current Visit: Yes Status: Acute Code(s): R11.2 - NAUSEA WITH VOMITING, UNSPECIFIED SNOMED Code(s): 948377347 Plan: This patient is a 47-year-old male who was admitted to hospital with acute dizziness and unsteady gait. He was able to complete MRI of the brain today which was reviewed with him in detail. MRI is negative for any evidence of acute stroke or hemorrhage. MRI does reveal evidence of pansinusitis. He was recommended to continue on antibiotic therapy for at least a week to see if this will help clear up the sinus disease. Patient did have headache after completing his MRI today and was given 1 dose pf Fioricet which did relieve him of the headache pain. He is currently without headache symptoms. He also states the dizziness has responded better this afternoon. Patient may be considered for discharge home tomorrow. He may follow-up in the outpatient neurology clinic in 2-3 weeks.
[2017-10-12] MEDS: PANTOPRAZOLE 40 MG TABLET PO SCH (06:01)
[2017-10-12 06:52] LABS: Basophils % (A) 0 %; Eosinophils # (A) 0.2 k/uL (0-0.7); Eosinophils % (A) 3 %; HCT 49.8 % (39.0-53.0); HGB 16.5 gm/dL (13.0-17.5); Lymphocytes % (A) 35 %; MCH 27.5 pg (25.0-35.0); MCHC 33.2 g/dL (31.0-37.0); Mean Platelet Volume 8.8; Monocytes # (A) 0.3 k/uL (0-1.0); Monocytes % (A) 6 %; Neutrophils # (A) 3.1 k/uL (1.3-7.7); Neutrophils % (A) 54 %; Platelet Count 163 k/uL (150-450); RDW 12.7 % (11.5-15.5); WBC 5.8 k/uL (3.8-10.6)
[2017-10-12 07:27] LABS: ALT 26 U/L (21-72); AST 18 U/L (17-59); Albumin 3.8 g/dL (3.5-5.0); Alkaline Phosphatase 56 U/L (38-126); Anion Gap 10 mmol/L; Blood Urea Nitrogen 17 mg/dL (9-20); Calcium 8.7 mg/dL (8.4-10.2); Carbon Dioxide 29 mmol/L (22-30); Chloride 105 mmol/L (98-107); Glucose 89 mg/dL (74-99); Potassium 4.6 mmol/L (3.5-5.1); Sodium 144 mmol/L (137-145); Total Bilirubin 0.4 mg/dL (0.2-1.3); Total Protein 6.2 g/dL (6.3-8.2)
[2017-10-12] MEDS: MECLIZINE 12.5 MG TAB PO SCH ×2 (09:28→19:48)
[2017-10-12] MEDS: HEPARIN SODIUM,PORCINE 5,000 UNIT/ML 1 ML VIAL SQ SCH ×2 (09:28→19:48)
[2017-10-12] MEDS: BUTA/APAP/CAF/COD 50-325-40-30 CAP PO PRN ×2 (12:07→19:47)
--- NOTE | 2017-10-12 12:30 | CONS ---
CONSULTATION Mr. Frank is a 47-year-old gentleman who is seen for evaluation of cardiac arrhythmia. Patient's medical record reviewed. This patient was admitted with a complaint of vertigo and nausea and unsteady gait. Patient underwent MRI. There was no definite evidence of a stroke. Patient was treated during the night. Patient had intermittent sinus pauses of 6-8 seconds were noted. Patient was asymptomatic. Patient's blood pressure was normal at that time. Patient denies any previous history of syncope. Patient gives a history that he does snore but there is no definite history of sleep apnea. Patient does not take any other medications. Patient denies any history of diabetes or hypertension. Patient had a echocardiogram done which was normal. PAST MEDICAL HISTORY: Includes a history of colonoscopy. HOME MEDICATIONS: None. PHYSICAL EXAMINATION: At present reveals a 47-year-old gentleman who does not appear to be in any acute distress. Patient's hemoglobin is 16.5, blood pressure is 117/62 mmHg, heart rate is 75 per minute. HEENT examination is negative. Neck is supple. There is no increase in jugular venous pressure. Both the carotid pulses are felt. There is no bruit. Chest is symmetrical. Heart, the PMI is not felt. First and second heart sounds are normal. There is no evidence of any murmur. Lungs are clinically clear to auscultation and percussion. Abdomen is soft. Liver and spleen are not enlarged. Bowel sounds are heard. Extremities, peripheral pulsations are 2+. EKG shows normal sinus rhythm without any acute ischemic changes. FINAL IMPRESSION: This patient had intermittent sinus pauses of 6-8 seconds during the night. The patient was asymptomatic, a possibility of underlying sleep apnea may need to be considered. We will put the patient on the pulse oximeter during the night and continue to watch him. Patient will need a sleep study as an outpatient. MMODL / IJN: [id number] /
--- NOTE | 2017-10-12 12:54 | P.PN ---
Subjective Progress Note Date: 10/12/17 This is a 47-year-old male, a patient of Dr. Mckay. He has a known past medical history of headaches and colitis that was diagnosed about 5 years ago. He does not take any medications for it and occasionally has blood in his stool. Patient reports that he was in good state of health as of last night. He woke up feeling very dizzy and felt like he might pass out. He also had an unsteady gait. Patient also had a fall. He denied any injury. Patient was able to drive to work. And a family member brought him home and to the ER. Also has had a mild headache with nausea and vomiting. Patient denies any vision changes slurred speech any numbness or tingling or weakness on one side of the body. Denies any hearing loss earache or ringing in ears. Denies any fever or chills or sweats. Denies any bowel movement changes. Denies any burning with urination. Denies any chest pain or shortness of breath. Patient does report a small amount of blood in his stools a few days ago. But per patient this is nothing new. Last colonoscopy was about [address] Rose. Computed tomography scan of brain showed no acute changes. EKG showed a normal sinus rhythm. Neurology has been consulted. Carotid and echo have been ordered. Patient was given Antivert in the ER with some improvement. He does admit to having one beer last night. Patient denies any regular alcohol use or tobacco smoking. Denies ever having symptoms like this in the past. Patient describes the dizziness as the room is spinning around him. 10/11/2017 patient still reporting some dizziness with movement. His unsteady gait has resolved. He's been up and ambulating to the bathroom with no difficulty. Patient seen by neurology they've added the Antivert twice a day. Patient has had some improvement. Likely dizziness is related to benign proximal positional vertigo and possibly acute labyrinthitis. Neurology recommending Antivert for 2 weeks. Carotid ultrasound was negative. Patient is scheduled for an MRI of the brain to rule out any brainstem stroke. Echo is also pending. Patient denies any bowel movement changes. Denies any further blood in his stools. Denies any chest pain or shortness of breath. Denies any nausea or vomiting. On 10/12/2017 patient is alert and oriented 3 he is still complaining of dizziness, MRI of the brain did not reveal any acute abnormality, there was evidence of pansinusitis patient was started on IV Rocephin, during the last night patient had cardiac pauses, including 2 episodes one lasted for 6 second and one for 8 seconds. Cardiology consultation was requested. Objective - Vital Signs Vital signs: Vital Signs Temp 98 F 10/12/17 12:00 Pulse 75 10/12/17 12:00 Resp 16 10/12/17 12:00 BP 117/62 10/12/17 12:00 Pulse Ox 99 10/12/17 12:00 Intake & Output 10/11/17 10/12/17 10/12/17 18:59 06:59 18:59 Intake Total 1200 240 240 Balance 1200 240 240 Weight 91.4 kg Intake: Oral 1200 240 240 Other: Voiding Method Toilet Toilet # Voids 2 1 0 - Exam Head normocephalic and atraumatic Neck supple, no JVD no goiter no lymphadenopathy Lungs clear to auscultation bilaterally no wheezing or crackles Heart regular rate and rhythm S1-S2, no rub or gallop Abdomen is soft nontender nondistended positive bowel sounds no hepatosplenomegaly Extremities no edema Neuro alert and orientated to 3 - Labs CBC & Chem 7: 10/12/17 06:16 10/12/17 06:16 Labs: Abnormal Lab Results - Last 24 Hours (Table) 10/12/17 10/12/17 Range/Units 06:16 06:16 RBC 6.00 H (4.30-5.90) m/uL Total Protein 6.2 L (6.3-8.2) g/dL Assessment and Plan Plan: 1. Severe dizziness with unsteady gait and fall: Likely related to his severe vertigo from benign paroxysmal positional vertical or an acute labyrinthitis. Neurology has evaluated patient and started him on Antivert 12.5 mg twice a day. Computed tomography scan of the brain was negative. Carotid ultrasound was negative. EKG showing a normal sinus rhythm. Continue IV fluids. Neurology consulted. 2. Mild epigastric tenderness possibly related to patient's vomiting. Resolved. Amylase lipase normal 3. History of colitis and occasional blood in his stools. Hemoglobin stable at 15.6. Last colonoscopy 5 years ago 4. History of headaches. 5. Pansinusitis patient was started on IV Rocephin 6. Cardiac pauses cardiology consultation was requested GI prophylaxis Protonix and DVT prophylaxis subcu heparin
[2017-10-12] MEDS: cefTRIAXone IN SWFI 1,000 MG/10 ML SYRINGE IVP SCH (14:42)
--- NOTE | 2017-10-12 16:10 | P.PN ---
Subjective Progress Note Date: 10/12/17 This patient is a pleasant 47-year-old male who was admitted yesterday for evaluation of dizziness and unsteady gait. Patient's clinical history was suggesting possibility of acute labyrinthitis. He was started on low-dose Antivert yesterday and has shown slight improvement. He underwent a MRI of the brain today for further evaluation of his vertigo symptoms. MRI of the brain was completed today and is reported to be negative for any acute stroke or hemorrhage. There was moderate degree of pansinusitis noted. Case was discussed today with internal medicine and they have recommended to start him on antibiotics for treatment of the pansinusitis. The patient may benefit from higher dose of Antivert if he is not responding to the current dosage. Currently the patient is resting comfortably in bed. He states his headache did respond Fiorocet. He did experience some mild dizziness this morning when he got up and went to the bathroom but this has since dissipated. We anticipate the patient may be able to be discharged home tomorrow on Antivert for the next 2 weeks. If he is still symptomatic tomorrow morning the dose of Antivert may be increased to 25 mg by mouth twice a day. Patient should continue his current antibiotic coverage for 5-7 days. We'll be happy to reevaluate the patient in the outpatient neurology clinic in 2-3 weeks. Overall the patient seems to be making good progress. His symptoms are consistent with acute labyrinthitis. The patient continues to experience some symptoms of dizziness. He was started on IV Rocephin for treatment of pansinusitis. The patient was noted last night as having evidence for cardiac pause. 2 events were recorded lasting 6 and 8 seconds in duration. Cardiology has been consulted. Cardiology reviewed his EKG which reveals normal sinus rhythm without any acute ischemic changes. The patient was asymptomatic and possibility of sleep apnea was raised. He is to be placed on a pulse oximeter during the night and will be observed tonight. Patient may need a sleep study as outpatient as per cardiology. Patient seems to be doing better this afternoon. He has had less episodes of dizziness. We recommend that he be maintained on Antivert 12.5 mg twice a day. At the time of discharge she is to be discharged on the same dosage of Antivert. He may follow-up in the outpatient neurology clinic in 2-3 weeks. Objective - Vital Signs Vital signs: Vital Signs Temp 98 F 05/05/18 12:00 Pulse 75 10/12/17 12:00 Resp 16 10/12/17 12:00 BP 117/62 10/12/17 12:00 Pulse Ox 99 10/12/17 12:00 Intake & Output 10/11/17 10/12/17 10/12/17 18:59 06:59 18:59 Intake Total 1200 240 480 Balance 1200 240 480 Weight 91.4 kg Intake: Oral 1200 240 480 Other: Voiding Method Toilet Toilet # Voids 2 1 0 - Exam Physical examination: PHYSICAL EXAMINATION: Patient is resting comfortably in bed. VITAL SIGNS: Blood pressure is [117/62]. Heart rate is [75]. Respiration is [16] . Temperature is [98.0]. HEENT: Head is atraumatic, neck is supple, there were no carotid bruits. CHEST: Lungs are clear to auscultation and percussion. CARDIAC: S1, S2 normal rate and rhythm. There is no murmur. ABDOMEN: Soft and nontender. Bowel sounds are present. EXTREMITIES: There is no pedal edema. Peripheral pulses are present. Neurological examination: Patient's neurological examination is unchanged from yesterday. Patient has less symptoms of dizziness today. - Labs CBC & Chem 7: 10/12/17 06:16 10/12/17 06:16 Labs: Abnormal Lab Results - Last 24 Hours (Table) 10/12/17 10/12/17 Range/Units 06:16 06:16 RBC 6.00 H (4.30-5.90) m/uL Total Protein 6.2 L (6.3-8.2) g/dL Assessment and Plan (1) Acute onset of severe vertigo Current Visit: Yes Status: Acute Code(s): R42 - DIZZINESS AND GIDDINESS SNOMED Code(s): 537461725 (2) Benign paroxysmal positional vertigo Current Visit: Yes Status: Acute Code(s): H81.10 - BENIGN PAROXYSMAL VERTIGO , UNSPECIFIED EAR SNOMED Code(s): 900693351 (3) Dizziness Current Visit: Yes Status: Acute Code(s): R42 - DIZZINESS AND GIDDINESS SNOMED Code(s): 735900942 (4) Intractable nausea and vomiting Current Visit: Yes Status: Acute Code(s): R11.2 - NAUSEA WITH VOMITING, UNSPECIFIED SNOMED Code(s): 534201468 Plan: This patient is a 47-year-old male who was admitted to hospital with acute dizziness and unsteady gait. He was able to complete MRI of the brain today which was reviewed with him in detail. MRI is negative for any evidence of acute stroke or hemorrhage. MRI does reveal evidence of pansinusitis. He was recommended to continue on antibiotic therapy for at least a week to see if this will help clear up the sinus disease. Patient did have headache after completing his MRI today and was given 1 dose pf Fioricet which did relieve him of the headache pain. He is currently without headache symptoms. He also states the dizziness has responded better this afternoon. He was found to have episode of cardiac pause yesterday. He was seen by cardiology today and they have noted sinus pauses lasting 6-8 seconds during the night. They are recommending sleep study for the patient and the question of obstructive sleep apnea was raised. The patient does have a history of snoring at home. He was recommended to consider having a sleep study done as outpatient. Patient is doing much better today in terms of his vertigo. He is to continue on Antivert 12.5 mg twice a day and to be discharged on the same dose for 2 weeks. He may follow-up in the outpatient neurology clinic in 2-3 weeks.
[2017-10-13 06:34] LABS: Basophils % (A) 1 %; Eosinophils # (A) 0.2 k/uL (0-0.7); Eosinophils % (A) 4 %; HCT 48.5 % (39.0-53.0); HGB 16.3 gm/dL (13.0-17.5); Lymphocytes # (A) 2.1 k/uL (1.0-4.8); Lymphocytes % (A) 33 %; MCH 27.7 pg (25.0-35.0); MCHC 33.6 g/dL (31.0-37.0); MCV 82.6 fL (80.0-100.0); Mean Platelet Volume 8.5; Monocytes # (A) 0.5 k/uL (0-1.0); Monocytes % (A) 8 %; Neutrophils # (A) 3.4 k/uL (1.3-7.7); Neutrophils % (A) 53 %; Platelet Count 155 k/uL (150-450); RBC 5.86 m/uL (4.30-5.90); RDW 12.7 % (11.5-15.5); WBC 6.4 k/uL (3.8-10.6)
[2017-10-13 06:51] LABS: Albumin 3.7 g/dL (3.5-5.0); Calcium 9.1 mg/dL (8.4-10.2); Potassium 4.6 mmol/L (3.5-5.1); Total Bilirubin 0.4 mg/dL (0.2-1.3); Total Protein 6.1 g/dL (6.3-8.2)
[2017-10-13] MEDS: MECLIZINE 12.5 MG TAB PO SCH (09:18)
[2017-10-13] MEDS: HEPARIN SODIUM,PORCINE 5,000 UNIT/ML 1 ML VIAL SQ SCH (09:18)
[2017-10-13] MEDS: PANTOPRAZOLE 40 MG TABLET PO SCH (09:18)
--- NOTE | 2017-10-13 10:40 | P.PN ---
Subjective Progress Note Date: 10/13/17 This patient is a 47-year-old male who is resting comfortably this morning in bed. He was being evaluated for episodes of headache and dizziness. Patient underwent MRI of the brain for further evaluation to rule out brainstem ischemia. His MRI came back negative for any acute changes. His symptoms are consistent with benign labyrinthitis. He was started on Antivert and seems to be doing better today in terms of this vertigo symptoms. His headaches have improved. He is being treated for pansinusitis and is on antibiotic coverage. We have recommended the patient to continue on Antivert for 2 weeks and slowly wean off of his symptoms improved. He is being evaluated by cardiology for episode of cardiac pause. Cardiology is recommending a sleep study for this patient to be done as outpatient. Patient otherwise is resting comfortably today. He has been up and ambulating to the bathroom without symptoms. We will continue to follow his progress closely during this admission. He may be considered for discharge home later today. Objective - Vital Signs Vital signs: Vital Signs Temp 97.9 F 10/13/17 08:00 Pulse 78 10/13/17 08:00 Resp 16 10/13/17 08:00 BP 122/68 10/13/17 08:00 Pulse Ox 99 10/13/17 08:00 Intake & Output 10/12/17 10/13/17 10/13/17 18:59 06:59 18:59 Intake Total 1170 240 350 Balance 1170 240 350 Weight 91.3 kg Intake: Oral 1170 240 350 Other: Voiding Method Toilet Toilet Toilet # Voids 350 2 1 # Bowel Movements 1 - Exam Physical examination: PHYSICAL EXAMINATION: Patient is resting comfortably in bed. VITAL SIGNS: Blood pressure is [122/68]. Heart rate is [78]. Respiration is [16] . Temperature is [97.9]. HEENT: Head is atraumatic, neck is supple, there were no carotid bruits. CHEST: Lungs are clear to auscultation and percussion. CARDIAC: S1, S2 normal rate and rhythm. There is no murmur. ABDOMEN: Soft and nontender. Bowel sounds are present. EXTREMITIES: There is no pedal edema. Peripheral pulses are present. Neurological examination: Patient's neurological examination is unchanged from yesterday. Patient has less symptoms of dizziness today. He is unable to ambulate in the room without symptoms. - Labs CBC & Chem 7: 10/13/17 05:57 10/13/17 05:57 Labs: Abnormal Lab Results - Last 24 Hours (Table) 10/13/17 Range/Units 05:57 Total Protein 6.1 L (6.3-8.2) g/dL Assessment and Plan (1) Acute onset of severe vertigo Current Visit: Yes Status: Acute Code(s): R42 - DIZZINESS AND GIDDINESS SNOMED Code(s): 328927666 (2) Benign paroxysmal positional vertigo Current Visit: Yes Status: Acute Code(s): H81.10 - BENIGN PAROXYSMAL VERTIGO , UNSPECIFIED EAR SNOMED Code(s): 641354128 (3) Dizziness Current Visit: Yes Status: Acute Code(s): R42 - DIZZINESS AND GIDDINESS SNOMED Code(s): 433137340 (4) Intractable nausea and vomiting Current Visit: Yes Status: Acute Code(s): R11.2 - NAUSEA WITH VOMITING, UNSPECIFIED SNOMED Code(s): 534266959 Plan: Patient is resting comfortably this morning. We have recommended the patient to continue on Antivert upon discharge home. He may continue to use Antivert 12.5 mg twice a day for the next 2 weeks. We reviewed once again his MRI of the brain results which came back negative for any acute findings. His headaches have improved. He is being evaluated by cardiology for 2 episodes of cardiac pause. We will await further recommendations from cardiology. He is being considered for possible discharge home later today. He may follow-up in the outpatient neurology clinic in 2-3 weeks. His neurological examination at this time is nonfocal. We will continue to follow his progress closely during this admission.
[2017-10-13 11:26] VITALS: BP 130/83; PULSE 80; RESP 15; TEMP 97
[2017-10-13] MEDS: cefTRIAXone IN SWFI 1,000 MG/10 ML SYRINGE IVP SCH (15:21)
--- NOTE | 2017-10-13 16:29 | P.DS ---
Providers Date of admission: 10/10/17 10:13 Expected date of discharge: 10/13/17 Attending physician: Ata Rosas Consults: 10/10/17 10:12 Consult Physician Stat Consulting Provider: Poly Austin Consult Reason/Comments: Unsteady gait, nausea vomiting and dizziness Do you want consulting provider notified?: Yes 10/12/17 08:38 Consult Physician Routine Consulting Provider: Silvio Duran Consult Reason/Comments: multiple pauses and bradycardia Do you want consulting provider notified?: Yes Primary care physician: Belkis Mares [facility] Course: Diagnoses on discharge: 1. Severe dizziness with unsteady gait and fall: Likely related to his severe vertigo from benign paroxysmal positional vertical or an acute labyrinthitis. Neurology has evaluated patient and started him on Antivert 12.5 mg twice a day. Computed tomography scan of the brain was negative. Carotid ultrasound was negative. EKG showing a normal sinus rhythm. Continue IV fluids. Neurology consulted. 2. Mild epigastric tenderness possibly related to patient's vomiting. Resolved. Amylase lipase normal 3. History of colitis and occasional blood in his stools. Hemoglobin stable at 15.6. Last colonoscopy 5 years ago 4. History of headaches. 5. Pansinusitis patient was started on IV Rocephin, at the time of discharge he was given a prescription for Ceftin 6. Cardiac pauses cardiology consultation was requested, patient was evaluated by Dr Gupta and recommendation were to proceed with outpatient sleep study and outpatient event monitor at the cardiology office. He was cleared by cardiology for discharge Hospital course: This is a 47-year-old male, a patient of Dr. Belkis Mares. He has a known past medical history of headaches and colitis that was diagnosed about 5 years ago. He does not take any medications for it and occasionally has blood in his stool. Patient reports that he was in good state of health as of last night. He woke up feeling very dizzy and felt like he might pass out. He also had an unsteady gait. Patient also had a fall. He denied any injury. Patient was able to drive to work. And a family member brought him home and to the ER. Also has had a mild headache with nausea and vomiting. Patient denies any vision changes slurred speech any numbness or tingling or weakness on one side of the body. Denies any hearing loss earache or ringing in ears. Denies any fever or chills or sweats. Denies any bowel movement changes. Denies any burning with urination. Denies any chest pain or shortness of breath. Patient does report a small amount of blood in his stools a few days ago. But per patient this is nothing new. Last colonoscopy was about [address] Rose. Computed tomography scan of brain showed no acute changes. EKG showed a normal sinus rhythm. Neurology has been consulted. Carotid and echo have been ordered. Patient was given Antivert in the ER with some improvement. He does admit to having one beer last night. Patient denies any regular alcohol use or tobacco smoking. Denies ever having symptoms like this in the past. Patient describes the dizziness as the room is spinning around him. 10/11/2017 patient still reporting some dizziness with movement. His unsteady gait has resolved. He's been up and ambulating to the bathroom with no difficulty. Patient seen by neurology they've added the Antivert twice a day. Patient has had some improvement. Likely dizziness is related to benign proximal positional vertigo and possibly acute labyrinthitis. Neurology recommending Antivert for 2 weeks. Carotid ultrasound was negative. Patient is scheduled for an MRI of the brain to rule out any brainstem stroke. Echo is also pending. Patient denies any bowel movement changes. Denies any further blood in his stools. Denies any chest pain or shortness of breath. Denies any nausea or vomiting. On 10/12/2017 patient is alert and oriented 3 he is still complaining of dizziness, MRI of the brain did not reveal any acute abnormality, there was evidence of pansinusitis patient was started on IV Rocephin, during the last night patient had cardiac pauses, including 2 episodes one lasted for 6 second and one for 8 seconds. Cardiology consultation was requested. On 10/13/2017 patient is alert and oriented 3 in no apparent distress dizziness improved, he did not have any cardiac pauses last night, he was reevaluated by cardiology Dr. Diamond Was cleared for discharge, he was given a prescription for Antivert 12.5 mg twice daily, he was also given a prescription for Ceftin 500 mg by mouth twice daily, he should follow-up with his primary care physician Dr. Belkis Mares within one week, recommendation by cardiology to proceed with outpatient sleep study, patient should also follow-up [facility], recommendation by cardiology is to proceed with 30 day event monitor to evaluate cardiac pauses. Patient Condition at Discharge: Good Plan - Discharge Summary Discharge Rx Participant: No New Discharge Prescriptions: New Cefuroxime Axetil [Ceftin] 500 mg PO BID 15 Days #30 tab Meclizine [Antivert] 12.5 mg PO BID tab Discharge Medication List Cefuroxime Axetil [Ceftin] 500 mg PO BID 15 Days #30 tab 10/13/17 [Rx] Meclizine [Antivert] 12.5 mg PO BID tab 10/13/17 [Rx] Follow up Appointment(s)/Referral(s): Belkis Mares DO [Primary Care Provider] - 1-2 days Discharge/Stand Alone Forms: Work/School Release
== END 2017-10-13 16:38 | disposition home or self-care (01) ==
LOC: EC 08:01 → 4MS4W 10:13 → 6SEL 13:48
PROVIDERS: ADMIT Internal Medicine; ATTEND Internal Medicine
DX: R42 Dizziness and giddiness (principal); J32.4 Chronic pansinusitis; R26.81 Unsteadiness on feet; R11.2 Nausea with vomiting, unspecified; R10.816 Epigastric abdominal tenderness; R00.8 Other abnormalities of heart beat; K92.1 Melena; K21.9 Gastro-esophageal reflux disease without esophagitis; W19.XXXA Unspecified fall, initial encounter; Z86.69 Personal history of other diseases of the nervous system and sense organs; Z87.891 Personal history of nicotine dependence; Z87.19 Personal history of other diseases of the digestive system; Z82.69 Family history of other diseases of the musculoskeletal system and connective tissue; Z83.3 Family history of diabetes mellitus; Z83.6 Family history of other diseases of the respiratory system
CPT/HCPCS: 99285 ×2; 96376; 96372 ×3; 96374; 96375; 36415; 93005; 93306; 80053 ×4; 82150; 83605; 83690; 84484; 85025 ×4; 86140; 93880; 70450; 70551; G0378 ×5; J1644 ×3; J2405 ×2; J0696 ×2

== ENCOUNTER → 2017-12-26 | Outpatient (CLI) | payer OTHER ==
--- NOTE | 2017-12-26 17:10 | CONS ---
CONSULTATION DATE OF SERVICE: 12/26/2017 47-year-old gentleman has been evaluated in the sleep center for possible obstructive sleep apnea-hypopnea syndrome. HISTORY OF PRESENT ILLNESS/SLEEP WAKE EVALUATION: Recently while during evaluation for dizziness in the hospital, patient was reported to have cardiac pauses, supraventricular tachycardia during the sleep. SLEEP SCHEDULE: Patient usual sleep schedule from 10 p.m. to 5:30 or 6 am on working days and from midnight until 8:00 a.m. on weekends. FALLING ASLEEP: Sometimes he has problem with falling asleep. Although he does not have TV in bedroom. DURING SLEEP: He snores loudly and may wake up from sleep several times, sometimes with nocturia. DURING THE DAY/SLEEP WAKE EVALUATION: No history of hypnagogic hallucinations, sleep paralysis or cataplexy. [place] Sleepiness Scale is in extremely high range of 21. Patient sometimes takes naps during the day. Rarely he seeing some dreams during the naps. No history of hypnagogic hallucinations. PAST MEDICAL HISTORY: Positive for hypertension, dizziness, anxiety, cardiac arrhythmias during the sleep. PAST SURGICAL HISTORY: None. MEDICATIONS ARE: Omeprazole, lisinopril, escitalopram, metoprolol, Cetirizine, meclizine, lorazepam. SOCIAL HISTORY: Negative for smoking. Alcohol consumption occasional. FAMILY HISTORY: Asthma, emphysema, lung problems, snoring, pneumonia, acid reflux. REVIEW OF SYSTEMS: Awakenings from sleep, sleepiness during the day. PHYSICAL EXAM: gentleman without distress. BP 138/77, HR 87, RR 16, height 5 feet 10 inches, weight 209.4, BMI 29.5, temperature 98.2, oxygen saturation on room air. Oropharynx: Low position of soft palate. Restriction of nasal breathing more on the left side. Abdomen slightly obese. Neck: Supple, no JVD. Thyroid is not palpable. LUNGS Clear to percussion and to auscultation. Good air exchange. No wheezing or rhonchi. HEART S1, S2 regular. No murmurs, gallops, or rubs. ABDOMEN: Slightly obese. Soft and nontender. Bowel sounds are present. No organomegaly appreciated. EXTREMITIES No clubbing or cyanosis. CHIEF RADIOLOGY Awake, alert, and oriented X3. Cranial nerves 2 to 7 intact. There is no fasciculation or atrophy. noted. No focal deficits observed. IMPRESSION: 1. Snoring, awakenings from sleep, episodes of cardiac arrhythmias during the sleep, low position of soft palate. Restriction of nasal breathing. Obstructive sleep apnea-hypopnea syndrome. 2. Overweight borderline to obesity BMI 29.5. 3. History of episodes of cardiac arrhythmias during the sleep including supraventricular tachycardia, cardiac pauses. 4. Hypertension. 5. Acid reflux. 6. Dizziness. 7. Anxiety. PLAN: 1. Polysomnography for evaluation of patient's breathing during sleep. 2. CPAP/BiPAP titration if sleep study confirms obstructive sleep apnea-hypopnea syndrome. 3. Preferable position during sleep on the side. 4. No driving if patient feels any sleepiness. 5. I will see patient for follow up visit to explain results of testing and following plan. Thank you very much for referring this patient for consultation. Sincerely, Sadiq Stanford MD, PhD, FAASM Diplomat of [place] [employer] [employer] [facility] [place] MMODL / IJN: [id number] /
== END | disposition home or self-care (01) ==
LOC: SLEEP 15:07
PROVIDERS: ATTEND Internal Medicine
DX: G47.33 Obstructive sleep apnea (adult) (pediatric) (principal); E66.9 Obesity, unspecified; I49.9 Cardiac arrhythmia, unspecified; I47.1 Supraventricular tachycardia; I10 Essential (primary) hypertension; K21.9 Gastro-esophageal reflux disease without esophagitis; R42 Dizziness and giddiness; F41.9 Anxiety disorder, unspecified; Z68.29 Body mass index [BMI] 29.0-29.9, adult; Z99.89 Dependence on other enabling machines and devices; Z79.899 Other long term (current) drug therapy
CPT/HCPCS: 99211

== ENCOUNTER → 2018-01-13 | Outpatient (CLI) | payer OTHER ==
[2018-01-13 16:28] LABS: HCT 47.3 % (39.0-53.0); MCH 28.2 pg (25.0-35.0); MCHC 33.9 g/dL (31.0-37.0); MCV 83.1 fL (80.0-100.0); Mean Platelet Volume 7.9; Platelet Count 150 k/uL (150-450); RDW 12.7 % (11.5-15.5); WBC 6.3 k/uL (3.8-10.6)
[2018-01-13 16:35] LABS: Anion Gap 9 mmol/L; Blood Urea Nitrogen 20 mg/dL (9-20); Carbon Dioxide 24 mmol/L (22-30); Chloride 106 mmol/L (98-107); Glucose 89 mg/dL (74-99); Potassium 4.5 mmol/L (3.5-5.1); Sodium 139 mmol/L (137-145)
== END | disposition home or self-care (01) ==
LOC: LABPAT 15:42
PROVIDERS: ATTEND Internal Medicine Clinical Cardiac Electrophysiology
DX: Z01.812 Encounter for preprocedural laboratory examination (principal); I47.1 Supraventricular tachycardia; R00.1 Bradycardia, unspecified; R42 Dizziness and giddiness
CPT/HCPCS: 36415; 80051; 82565; 82947; 84520; 85027

== ENCOUNTER 2018-01-14 10:54 | Day surgery (SDC) | payer OTHER ==
[2018-01-13 08:28] VITALS: BMI 31.0
[~2018-01-14 10:54] MED LIST: LACTATED RINGERS 1,000 ML IV SCH; MIDAZOLAM 2 MG/2 ML VIAL IV PRN; ONDANSETRON 4 MG/2 ML VIAL IVP ONE; SODIUM CHLORIDE 0.9% 1,000 ML IV SCH; fentaNYL (PF) 50 MCG/ML 2 ML AMP IV PRN
[2018-01-14] MEDS ORDERED: fentaNYL (PF) 50 MCG/ML 2 ML AMP ONE (12:22)
[2018-01-14] MEDS ORDERED: MIDAZOLAM 2 MG/2 ML VIAL ONE (12:22)
[2018-01-14] MEDS ORDERED: ISOPROTERENOL 250 MCG/1.25 ML SYR IV ONE (12:22)
[2018-01-14] MEDS ORDERED: PROPOFOL 10 MG/ML 20 ML VIAL IV ONE (12:22)
[2018-01-14] MEDS ORDERED: SODIUM CHLORIDE 0.9% 1,000 ML IV ONE (12:25)
[2018-01-14] MEDS ORDERED: LIDOCAINE 1% INJ 10MG/ML (20 ML MDV) SQ ONE (12:57)
[2018-01-14] MEDS ORDERED: LIDOCAINE 2% SYG (PF) 100 MG/5 ML MISCELLANE ONE (12:57)
[2018-01-14] MEDS ORDERED: HYDROcodone/APAP 5-325MG 1 EACH TAB PO PRN (15:07)
[2018-01-14] MEDS ORDERED: ACETAMINOPHEN TAB 325 MG TAB PO PRN (15:07)
[2018-01-14] MEDS ORDERED: ACETAMINOPHEN IV (For NPO) 1,000 MG in EMPTY BAG 1 BAG IVPB ONE (15:30)
--- NOTE | 2018-01-14 15:42 | CE ---
CARDIAC ELECTROPHYSIOLOGY REPORT This is a 47-year-old male patient who has documented supraventricular tachycardia with rapid rates despite beta blockers. He also has nighttime bradycardia with pauses. He was brought in for an EP study to delineate the arrhythmia. Patient was brought to the EP lab in a fasting state. Written informed consent was obtained prior to the procedure. The right and left groins were prepped and draped as per protocol. Venous sheaths placed in the right and left femoral veins and via these diagnostic catheters were placed in the right heart including high right atrium, His bundle, RV and coronary sinus. Sinus cycle length 76 milliseconds, NE interval 161 milliseconds, QRS 93 milliseconds, QT 376 milliseconds. AH interval 82 milliseconds, HV interval 40 milliseconds. Sinus node recovery times at 600, 500, 400 milliseconds were 1173, 1160. 1181 milliseconds. AV node Wenckebach block 320 milliseconds, VA Wenckebach block 340 milliseconds. A detailed EP study was performed from the high right atrium, right ventricle and coronary sinus. Burst stimulation was performed. Extra stimulation was performed after double extra stimuli. The retrograde jump was noted with single echo beats. An antegrade jump was noted only with extra stimulation with occasional echo beats. Both on and off Isuprel. No SVT was induced. Initially, the start of the study in a sedated state during straight pacing, atrial fibrillation was induced, which organized and terminated within less than 30 seconds. A detailed EP study was performed on and off Isuprel, but no supraventricular tachycardia was induced. All catheters were removed. Hemostasis was assured and then transferred back to telemetry. RESULT: Diagnostic EP study revealin. Normal sinus node function. 2. Evidence of dual AV kenn physiology both antegradely and predominantly retrogradely with single echo beats with and without induction of any supraventricular tachycardia. SUGGEST: Follow with Dr. Duran regarding in the nighttime pauses which are most likely related to severe sleep apnea. MMODL / IJN: [id number] /
[2018-01-14 19:42] VITALS: BP 150/76; PULSE 90; RESP 16
[2018-01-14 20:51] VITALS: TEMP 98.7
[2018-01-14] MEDS ORDERED: LISINOPRIL 10 MG TAB PO SCH (21:00)
[2018-01-14] MEDS ORDERED: METOPROLOL SUCCINATE (ER) 25 MG TAB.ER.24H PO SCH (21:00)
== END 2018-01-14 20:55 | disposition home or self-care (01) ==
LOC: CATHEP 10:54 → 3OBS 14:58 → CATHEP 20:55
PROVIDERS: ATTEND Internal Medicine Clinical Cardiac Electrophysiology
DX: I47.1 Supraventricular tachycardia (principal); R00.1 Bradycardia, unspecified; I10 Essential (primary) hypertension; F39 Unspecified mood [affective] disorder; R51 Headache; K21.9 Gastro-esophageal reflux disease without esophagitis; K52.9 Noninfective gastroenteritis and colitis, unspecified; Z79.899 Other long term (current) drug therapy
CPT/HCPCS: 93623; 93620; C1894; C1769 ×2; C1730 ×3; J2250; J2001; J3010; J2704

== ENCOUNTER → 2020-04-05 | Day surgery (SDC) | payer OTHER ==
[2020-04-01 11:16] VITALS: BMI 31.0
[~2020-04-05] MED LIST changes: +LIDOCAINE 1% (10MG/ML) FOR IV START INTRADERMA PRN; +LIDOCAINE 1% INJ 10MG/ML (20 ML MDV) ONE; -ONDANSETRON 4 MG/2 ML VIAL IVP ONE; +ONDANSETRON 4 MG/2 ML VIAL IVP PRN; +PROPOFOL 10 MG/ML 20 ML VIAL IV ONE; -SODIUM CHLORIDE 0.9% 1,000 ML IV SCH
[2020-04-05 08:45] VITALS: RESP 16; TEMP 97.9
--- NOTE | 2020-04-05 09:20 | P.GSHP ---
History of Present Illness H&P Date: 04/05/20 Chief Complaint: Change in bowel habits 50-year-old male here today for colonoscopy. Describes frequent diarrhea and change in bowel habits. No rectal bleeding or melena. No family history of colon cancer. Patient states he does have a family history of inflammatory delma l disease. Past Medical History Past Medical History: GERD/Reflux, Hypertension Additional Past Medical History / Comment(s): Hx Colitis and headaches,SVT,vertigo History of Any Multi-Drug Resistant Organisms: None Reported Past Surgical History: No Surgical Hx Reported Additional Past Surgical History / Comment(s): colonoscopy,EP study Past Anesthesia/Blood Transfusion Reactions: Motion Sickness Additional Past Anesthesia/Blood Transfusion Reaction / Comment(s): never recieved blood Smoking Status: Former smoker - Past Family History Mother Family Medical History: Diabetes Mellitus, Fibromyalgia Additional Family Medical History / Comment(s): "heart problems", Father Family Medical History: Cancer, Pneumonia Additional Family Medical History / Comment(s): home o2,prostate CA Medications and Allergies Home Medications Medication Instructions Recorded Confirmed Type Escitalopram [Lexapro] 20 mg PO HS 01/13/18 04/05/20 History LORazepam [Ativan] 0.5 mg PO DAILY PRN 01/13/18 04/05/20 History lisinopriL [Zestril] 10 mg PO HS 01/13/18 04/05/20 History Allergies Allergy/AdvReac Type Severity Reaction Status Date / Time No Known Allergies Allergy Verified 04/05/20 08:45 Surgical - Exam Vital Signs Temp Pulse Resp BP Pulse Ox 97.9 F 95 16 155/96 98 04/05/20 08:27 04/05/20 08:27 04/05/20 08:27 04/05/20 08:27 04/05/20 08:27 Physical exam: General: Well-developed, well-nourished HEENT: Normocephalic, sclerae nonicteric Abdomen: Nontender, nondistended Extremities: No edema Neuro: Alert and oriented Assessment and Plan (1) Change in bowel habits Narrative/Plan: Will proceed with colonoscopy at this time Current Visit: Yes Status: Acute Code(s): R19.4 - CHANGE IN BOWEL HABIT SNOMED Code(s): 272858237
--- NOTE | 2020-04-05 09:35 | P.PCN ---
Date of Procedure: 04/05/20 Procedure(s) Performed: PREOPERATIVE DIAGNOSIS: Change in bowel habits POSTOPERATIVE DIAGNOSIS: Hepatic flexure polyp, transverse colon polyp 2 PROCEDURE: Colonoscopy with snare polypectomy ANESTHESIA: MAC SURGEON: Ez Edward M.D. SPECIMENS: Polyps ENDOSCOPIC PROCEDURE: The patient was placed on the endoscopy table in the left decubitus position. The Olympus colonoscope was inserted into the anus and passed under direct visualization to the base of the cecum. The appendiceal orifice was visualized. From that point the scope was slowly withdrawn inspecting all surfaces carefully. There were no neoplastic inflammatory or polypoid lesions throughout the cecum or ascending colon. At the hepatic flexure a small polyp was seen and removed using the snare with cautery technique. In the transverse colon 2 polyps were removed using the snare with cautery technique. The remainder of the transverse descending sigmoid and rectum appeared normal. There was no visible diverticulosis. Digital rectal examination was normal. The patient was taken to the recovery room in stable condition per anesthesia guidelines. RECOMMENDATIONS: Await biopsy results. Anticipate follow-up colonoscopy 5 years
[2020-04-05 09:50] VITALS: BP 131/82; PULSE 89
== END ==
LOC: ORWHC2ENDO 08:12
PROVIDERS: ATTEND Surgery
DX: D12.3 Benign neoplasm of transverse colon (principal); K21.9 Gastro-esophageal reflux disease without esophagitis; I10 Essential (primary) hypertension; I47.1 Supraventricular tachycardia; K08.89 Other specified disorders of teeth and supporting structures; Z87.19 Personal history of other diseases of the digestive system; Z98.890 Other specified postprocedural states; Z87.898 Personal history of other specified conditions; Z87.891 Personal history of nicotine dependence; Z79.899 Other long term (current) drug therapy; Z83.79 Family history of other diseases of the digestive system; Z83.3 Family history of diabetes mellitus; Z82.69 Family history of other diseases of the musculoskeletal system and connective tissue; Z82.49 Family history of ischemic heart disease and other diseases of the circulatory system; Z80.42 Family history of malignant neoplasm of prostate; Z82.5 Family history of asthma and other chronic lower respiratory diseases
CPT/HCPCS: 88305; 45385; J2001; J2704

== ENCOUNTER 2020-04-15 08:25 | Observation (INO) | payer OTHER ==
--- NOTE | 2020-04-15 08:40 | ED ---
General Adult HPI - General Chief complaint: Abdominal Pain Stated complaint: Post Colonoscopy Bleeding Time Seen by Provider: 04/15/20 08:29 Source: patient, RN notes reviewed, old records reviewed Mode of arrival: ambulatory Limitations: no limitations - History of Present Illness Initial comments: 50-year-old male presenting for evaluation of rectal bleeding. Patient had colonoscopy on April 05 and underwent 2 biopsies. Patient has had some l ight intermittent bleeding since his procedure. Yesterday evening he developed more significant bleeding around 3 AM. He had a large bowel movement that was bright red, no stool. He has had some crampy generalized abdominal pain worse on the left side. He does feel somewhat lightheaded and short of breath. He's not currently on any blood thinners. - Related Data Home Medications Medication Instructions Recorded Confirmed Escitalopram [Lexapro] 10 mg PO HS 04/15/20 04/15/20 lisinopriL [Zestril] 20 mg PO HS 04/15/20 04/15/20 Allergies Allergy/AdvReac Type Severity Reaction Status Date / Time No Known Allergies Allergy Verified 04/15/20 09:31 Review of Systems ROS Statement: Those systems with pertinent positive or pertinent negative responses have been documented in the HPI. ROS Other: All systems not noted in ROS Statement are negative. Past Medical History Past Medical History: GERD/Reflux, Hypertension Additional Past Medical History / Comment(s): Hx Colitis and headache s,SVT,vertigo History of Any Multi-Drug Resistant Organisms: None Reported Past Surgical History: No Surgical Hx Reported Additional Past Surgical History / Comment(s): colonoscopy,EP study Past Anesthesia/Blood Transfusion Reactions: Motion Sickness Additional Past Anesthesia/Blood Transfusion Reaction / Comment(s): never recieved blood Past Psychological History: Anxiety, Depression Smoking Status: Former smoker - Past Family History Mother Family Medical History: Diabetes Mellitus, Fibromyalgia Additional Family Medical History / Comment(s): "heart problems", Father Family Medical History: Cancer, Pneumonia Additional Family Medical History / Comment(s): home o2,prostate [place] General Exam Limitations: no limitations General appearance: alert, in no apparent distress Head exam: Present: atraumatic, normocephalic Eye exam: Present: normal appearance, PERRL ENT exam: Present: normal exam Neck exam: Present: normal inspection. Absent: tenderness, meningismus Respiratory exam: Present: normal lung sounds bilaterally. Absent: respiratory distress, wheezes Cardiovascular Exam: Present: normal rhythm, tachycardia GI/Abdominal exam: Present: soft. Absent: distended, tenderness, guarding Extremities exam: Present: normal inspection, normal capillary refill. Absent: pedal edema Neurological exam: Present: alert, oriented X3, CN II-XII intact. Absent: motor sensory deficit Psychiatric exam: Present: normal affect, normal mood Skin exam: Present: warm, dry, intact. Absent: cyanosis Course Vital Signs 04/15/20 04/15/20 04/15/20 08:29 09:00 09:20 Temperature 97.9 F Pulse Rate 103 H 73 80 Respiratory 18 15 16 Rate Blood Pressure 142/87 122/86 128/85 O2 Sat by Pulse 99 100 98 Oximetry 04/15/20 09:40 Temperature Pulse Rate 81 Respiratory 16 Rate Blood Pressure 124/89 O2 Sat by Pulse 99 Oximetry EKG Findings - EKG Comments: EKG Findings:: EKG: Normal sinus rhythm, rate of 64, NV interval 136, QRS duration 88, QTC 373, peak T waves in V2 and V3 Medical Decision Making - Medical Decision Making 50-year-old male presenting with bright red rectal bleeding, 3 episodes since 3 AM this morning. He has no episodes during the initial time the emergency department. Initial hemoglobin is stable. He has normal electrolytes and kidney function. Patient did have an episode where he became bradycardic, and diaphoretic is Wells very pale. This may have been a vagal episode and was in close proximity to IV initiation. He is observed closely, vitals remained stable while in the emergency department. His color improves. Case is then discussed with Dr. Edward who will admit the patient. Every 6 he moglobin has been ordered. Patient will be kept nothing by mouth. - Lab Data Result diagrams: 04/15/20 08:51 04/15/20 08:51 Lab Results 04/15/20 04/15/20 04/15/20 Range/Units 08:50 08:51 08:51 WBC 6.9 (3.8-10.6) k/uL RBC 5.47 (4.30-5.90) m/uL Hgb 15.8 (13.0-17.5) gm/dL Hct 46.7 (39.0-53.0) % MCV 85.3 (80.0-100.0) fL MCH 28.8 (25.0-35.0) pg MCHC 33.8 (31.0-37.0) g/dL RDW 12.5 (11.5-15.5) % Plt Count 177 (150-450) k/uL Neutrophils % 57 % Lymphocytes % 32 % Monocytes % 6 % Eosinophils % 2 % Basophils % 1 % Neutrophils # 3.9 (1.3-7.7) k/uL Lymphocytes # 2.2 (1.0-4.8) k/uL Monocytes # 0.4 (0-1.0) k/uL Eosinophils # 0.1 (0-0.7) k/uL Basophils # 0.1 (0-0.2) k/uL PT 10.1 (9.0-12.0) sec INR 1.0 (<1.2) APTT 26.6 (22.0-30.0) sec Sodium (137-145) mmol/L Potassium (3.5-5.1) mmol/L Chloride (98-107) mmol/L Carbon Dioxide (22-30) mmol/L Anion Gap mmol/L BUN (9-20) mg/dL Creatinine (0.66-1.25) mg/dL Est GFR (CKD-EPI)AfAm (>60 ml/min/1.73 sqM) Est GFR (CKD-EPI)NonAf (>60 ml/min/1.73 sqM) Glucose (74-99) mg/dL POC Glucose (mg/dL) 96 (75-99) mg/dL POC Glu Load Blocker ID Isha Powers Plasma Lactic Acid Delmer (0.7-2.0) mmol/L Calcium (8.4-10.2) mg/dL Magnesium (1.6-2.3) mg/dL Total Bilirubin (0.2-1.3) mg/dL AST (17-59) U/L ALT (4-49) U/L Alkaline Phosphatase (38-126) U/L Total Protein (6.3-8.2) g/dL Albumin (3.5-5.0) g/dL 04/15/20 04/15/20 Range/Units 08:51 08:51 WBC (3.8-10.6) k/uL RBC (4.30-5.90) m/uL Hgb (13.0-17.5) gm/dL Hct (39.0-53.0) % MCV (80.0-100.0) fL MCH (25.0-35.0) pg MCHC (31.0-37.0) g/dL RDW (11.5-15.5) % Plt Count (150-450) k/uL Neutrophils % % Lymphocytes % % Monocytes % % Eosinophils % % Basophils % % Neutrophils # (1.3-7.7) k/uL Lymphocytes # (1.0-4.8) k/uL Monocytes # (0-1.0) k/uL Eosinophils # (0-0.7) k/uL Basophils # (0-0.2) k/uL PT (9.0-12.0) sec INR (<1.2) APTT (22.0-30.0) sec Sodium 137 (137-145) mmol/L Potassium 4.6 (3.5-5.1) mmol/L Chloride 108 H (98-107) mmol/L Carbon Dioxide 23 (22-30) mmol/L Anion Gap 6 mmol/L BUN 17 (9-20) mg/dL Creatinine 1.03 (0.66-1.25) mg/dL Est GFR (CKD-EPI)AfAm >90 (>60 ml/min/1.73 sqM) Est GFR (CKD-EPI)NonAf 86 (>60 ml/min/1.73 sqM) Glucose 105 H (74-99) mg/dL POC Glucose (mg/dL) (75-99) mg/dL POC Glu Load Blocker ID Plasma Lactic Acid Delmer 1.1 (0.7-2.0) mmol/L Calcium 8.5 (8.4-10.2) mg/dL Magnesium 2.0 (1.6-2.3) mg/dL Total Bilirubin 0.8 (0.2-1.3) mg/dL AST 28 (17-59) U/L ALT 23 (4-49) U/L Alkaline Phosphatase 64 (38-126) U/L Total Protein 6.8 (6.3-8.2) g/dL Albumin 4.0 (3.5-5.0) g/dL Critical Care Time Critical Care Time: Yes Total Critical Care Time: 35 Disposition Clinical Impression: Hematochezia Disposition: ADMITTED IP TO THIS [facility] Condition: Stable Is patient prescribed a controlled substance at d/c from ED?: No Referrals: Belkis Mares DO [Primary Care Provider] - 1-2 days Decision to Admit Reason: Admit from EC Decision Date: 04/15/20 Decision Time: 10:04
[2020-04-15 08:51] LABS: Glucose,Whole Blood 96 mg/dL (75-99)
[2020-04-15 09:15] LABS: Basophils # (A) 0.1 k/uL (0-0.2); Basophils % (A) 1 %; Eosinophils # (A) 0.1 k/uL (0-0.7); Eosinophils % (A) 2 %; HCT 46.7 % (39.0-53.0); HGB 15.8 gm/dL (13.0-17.5); Lymphocytes # (A) 2.2 k/uL (1.0-4.8); Lymphocytes % (A) 32 %; MCH 28.8 pg (25.0-35.0); MCHC 33.8 g/dL (31.0-37.0); MCV 85.3 fL (80.0-100.0); Mean Platelet Volume 8.9; Monocytes # (A) 0.4 k/uL (0-1.0); Monocytes % (A) 6 %; Neutrophils # (A) 3.9 k/uL (1.3-7.7); Neutrophils % (A) 57 %; Platelet Count 177 k/uL (150-450); RBC 5.47 m/uL (4.30-5.90); RDW 12.5 % (11.5-15.5); WBC 6.9 k/uL (3.8-10.6)
[2020-04-15 09:26] LABS: Partial Thromboplastin Time 26.6 sec (22.0-30.0); Prothrombin Time 10.1 sec (9.0-12.0)
[2020-04-15 09:33] LABS: Chloride 108 mmol/L (98-107)
[2020-04-15 09:35] LABS: ALT 23 U/L (4-49); AST 28 U/L (17-59); African American GFR (CKD) >90 (>60 ml/min/1.73 sqM); Alkaline Phosphatase 64 U/L (38-126); Blood Urea Nitrogen 17 mg/dL (9-20); Carbon Dioxide 23 mmol/L (22-30); Potassium 4.6 mmol/L (3.5-5.1); Total Bilirubin 0.8 mg/dL (0.2-1.3)
[2020-04-15 09:47] LABS: Anion Gap 6 mmol/L; Calcium 8.5 mg/dL (8.4-10.2); Glucose 105 mg/dL (74-99); Non-African American GFR(CKD) 86 (>60 ml/min/1.73 sqM); Sodium 137 mmol/L (137-145); Total Protein 6.8 g/dL (6.3-8.2)
[2020-04-15] MEDS ORDERED: MORPHINE SULFATE 4 MG/ML SYRINGE IV PRN (10:00)
[2020-04-15] MEDS ORDERED: NALOXONE 0.4 MG/ML 1 ML VIAL IV PRN (10:00)
[2020-04-15] MEDS ORDERED: PANTOPRAZOLE 40 MG/10 ML VIAL IVP STA (10:01)
[2020-04-15] MEDS ORDERED: ONDANSETRON 4 MG/2 ML VIAL IVP PRN (12:24)
--- NOTE | 2020-04-15 12:28 | P.GSHP ---
History of Present Illness H&P Date: 04/15/20 Chief Complaint: GI bleed 50-year-old male known to our service. Patient underwent colonoscopy 04/05. Patient had 3 small polyps one at the hepatic flexure to in the transverse colon removed using the snare with cautery technique. Patient states he has had a small amount of blood occasionally in his stools since the procedure. Denied having this previously. Also some black colored stools at times. Describes crampy mid abdominal pain and also some epigastric discomfort. Around 3 AM he woke up with crampy pain went to the bathroom and had a large bloody bowels mov ement. 2 smaller bowel movement since that time. Apparently in the ER he was diaphoretic initially and appeared pale. This was several hours after the larger episodes of rectal bleeding. He has had no further bleeding in the ER at this point. Patient is not on any anticoagulation. No history of ulcer disease. Hemoglobin 15.8. Heart rate currently normal. Feels better at this time. Still with some abdominal discomfort however. - Review of Systems Comment: The patient denies any acute changes in vision or hearing, no dysphagia or odynophagia, no chest pain or shortness of breath, no dysuria or hematuria, no headache, no runny nose, no unexplained weight loss Past Medical History Past Medical History: GERD/Reflux, Hypertension Additional Past Medical History / Comment(s): Hx Colitis and headaches,SVT,vertigo History of Any Multi-Drug Resistant Organisms: None Reported Past Surgical History: No Surgical Hx Reported Additional Past Surgical History / Comment(s): colonoscopy,EP study Past Anesthesia/Blood Transfusion Reactions: Motion Sickness Additional Past Anesthesia/Blood Transfusion Reaction / Comment(s): never recieved blood Past Psychological History: Anxiety, Depression Smoking Status: Former smoker - Past Family History Mother Family Medical History: Diabetes Mellitus, Fibromyalgia Additional Family Medical History / Comment(s): "heart problems", Father Family Medical History: Cancer, Pneumonia Additional Family Medical History / Comment(s): home o2,prostate [place] Medications and Allergies Home Medications Medication Instructions Recorded Confirmed Type Escitalopram [Lexapro] 10 mg PO HS 04/15/20 04/15/20 History lisinopriL [Zestril] 20 mg PO HS 04/15/20 04/15/20 History Allergies Allergy/AdvReac Type Severity Reaction Status Date / Time No Known Allergies Allergy Verified 04/15/20 09:31 Surgical - Exam Vital Signs Temp Pulse Resp BP Pulse Ox 97.9 F 103 H 18 142/87 99 04/15/20 08:29 04/15/20 08:29 04/15/20 08:29 04/15/20 08:29 04/15/20 08:29 Physical exam: General: Well-developed, well-nourished HEENT: Normocephalic, sclerae nonicteric Abdomen: Mild epigastric and mid abdominal tenderness, nondistended Extremities: No edema Neuro: Alert and oriented Results - Labs 04/15/20 08:51 04/15/20 08:51 Abnormal Lab Results - Last 24 Hours (Table) 04/15/20 Range/Units 08:51 Chloride 108 H (98-107) mmol/L Glucose 105 H (74-99) mg/dL Diabetes panel 04/15/20 Range/Units 08:51 Sodium 137 (137-145) mmol/L Potassium 4.6 (3.5-5.1) mmol/L Chloride 108 H (98-107) mmol/L Carbon Dioxide 23 (22-30) mmol/L BUN 17 (9-20) mg/dL Creatinine 1.03 (0.66-1.25) mg/dL Glucose 105 H (74-99) mg/dL Calcium 8.5 (8.4-10.2) mg/dL AST 28 (17-59) U/L ALT 23 (4-49) U/L Alkaline Phosphatase 64 (38-126) U/L Total Protein 6.8 (6.3-8.2) g/dL Albumin 4.0 (3.5-5.0) g/dL Calcium panel 04/15/20 Range/Units 08:51 Calcium 8.5 (8.4-10.2) mg/dL Albumin 4.0 (3.5-5.0) g/dL Pituitary panel 04/15/20 Range/Units 08:51 Sodium 137 (137-145) mmol/L Potassium 4.6 (3.5-5.1) mmol/L Chloride 108 H (98-107) mmol/L Carbon Dioxide 23 (22-30) mmol/L BUN 17 (9-20) mg/dL Creatinine 1.03 (0.66-1.25) mg/dL Glucose 105 H (74-99) mg/dL Calcium 8.5 (8.4-10.2) mg/dL Adrenal panel 04/15/20 Range/Units 08:51 Sodium 137 (137-145) mmol/L Potassium 4.6 (3.5-5.1) mmol/L Chloride 108 H (98-107) mmol/L Carbon Dioxide 23 (22-30) mmol/L BUN 17 (9-20) mg/dL Creatinine 1.03 (0.66-1.25) mg/dL Glucose 105 H (74-99) mg/dL Calcium 8.5 (8.4-10.2) mg/dL Total Bilirubin 0.8 (0.2-1.3) mg/dL AST 28 (17-59) U/L ALT 23 (4-49) U/L Alkaline Phosphatase 64 (38-126) U/L Total Protein 6.8 (6.3-8.2) g/dL Albumin 4.0 (3.5-5.0) g/dL Assessment and Plan (1) Hematochezia Narrative/Plan: 50-year-old male with bleeding after recent colonoscopy. Suspect polypectomy site bleed. Other possibility given the black colored stool in the epigastric discomfort remains the possibility of ulcer disease. Options reviewed with the patient. I have asked GI to see him to proceed with upper and lower endoscopy tomorrow in the event that this is a bleeding ulcer. Patient will be kept nothing by mouth for now. Repeat hemoglobin at 2 PM. Clinical scenario reviewed in detail with the patient. Current Visit: Yes Status: Acute Code(s): K92.1 - MELENA SNOMED Code(s): 556264523
[2020-04-15] MEDS ORDERED: ACETAMINOPHEN IV (For NPO) 1,000 MG in EMPTY BAG 1 BAG IVPB ONE (13:00)
[2020-04-15 13:41] LABS: Basophils % (A) 0 %; Eosinophils % (A) 1 %; HCT 43.7 % (39.0-53.0); HGB 14.9 gm/dL (13.0-17.5); Lymphocytes # (A) 1.3 k/uL (1.0-4.8); Lymphocytes % (A) 15 %; MCV 85.4 fL (80.0-100.0); Mean Platelet Volume 9.7; Monocytes # (A) 0.4 k/uL (0-1.0); Monocytes % (A) 4 %; Neutrophils # (A) 7.2 k/uL (1.3-7.7); Neutrophils % (A) 80 %; Platelet Count 166 k/uL (150-450); RBC 5.12 m/uL (4.30-5.90); RDW 12.5 % (11.5-15.5)
[2020-04-15] MEDS ORDERED: bisacodyL 5 MG TABLET.DR PO STA (14:23)
--- NOTE | 2020-04-15 15:24 | XR ---
EXAMINATION TYPE: XR KUB DATE OF EXAM: 04/15/2020 COMPARISON: None HISTORY: Abdomen pain TECHNIQUE: Abdomen is examined in the upright view FINDINGS: Normal colonic bowel gas present. Psoas margins are normal. Organomegaly is not evident. No mass effect is evident. No significant fecal retention is evident. IMPRESSION: 1. Normal abdomen
[2020-04-15] MEDS ORDERED: PEG 3350-NA SULF,BICARB,CL/KCL 4,000 ML BOTTLE PO ONE (17:00)
[2020-04-15 18:49] LABS: Basophils % (A) 1 %; Eosinophils # (A) 0.1 k/uL (0-0.7); Eosinophils % (A) 1 %; HCT 43.9 % (39.0-53.0); HGB 14.9 gm/dL (13.0-17.5); Lymphocytes # (A) 2.1 k/uL (1.0-4.8); Lymphocytes % (A) 28 %; MCH 28.9 pg (25.0-35.0); MCHC 33.9 g/dL (31.0-37.0); MCV 85.2 fL (80.0-100.0); Mean Platelet Volume 8.6; Monocytes # (A) 0.4 k/uL (0-1.0); Monocytes % (A) 5 %; Neutrophils # (A) 4.8 k/uL (1.3-7.7); Neutrophils % (A) 64 %; Platelet Count 162 k/uL (150-450); RBC 5.15 m/uL (4.30-5.90); RDW 12.4 % (11.5-15.5); WBC 7.5 k/uL (3.8-10.6)
[2020-04-15] MEDS: lisinopriL 20 MG TAB PO SCH (21:44)
[2020-04-15] MEDS: PANTOPRAZOLE 40 MG/10 ML VIAL IVP SCH (21:44)
[2020-04-15] MEDS: ESCITALOPRAM 10 MG TAB PO SCH (21:44)
[2020-04-16] MEDS: PANTOPRAZOLE 40 MG/10 ML VIAL IVP SCH (08:55)
[2020-04-16] MEDS ORDERED: PANTOPRAZOLE 40 MG/10 ML VIAL IV SCH (09:00)
--- NOTE | 2020-04-16 09:33 | P.CONS ---
History of Present Illness - Reason for Consult Consult date: 04/15/20 GI bleed Requesting physician: Ez Edward - Chief Complaint Blood in stool - History of Present Illness 50-year-old male with a medical history significant for GERD and hypertension who presented to the hospital due to epigastric pain and concern over GI bleed. The patient underwent colonoscopic evaluation on 04/05/[address] Ez díaz of the surgical service at that time the evaluation was for change in bowel habits and the patient had polypectomy of polyps at the hepatic flexure and in the transverse colon. Subsequently the patient reports developing episodes of dark colored bowel movements with a small amount of blood noted as well. He reports epigastric pain described as crampy in nature. The patient denies any consistent NSAID use reporting that he takes Excedrin occasionally. He does report occasional reflux. No family history of colon cancer but he does report Crohn's disease in his brother. Hemoglobin 15.8 on presentation. KUB x-ray significant for a normal abdomen. Review of Systems REVIEW OF SYSTEMS: CONSTITUTIONAL: Denies any fevers, chills, weight change or fatigue. CARDIOVASCULAR: Denies any chest pain, palpitations high or low blood pressures RESPIRATORY: Denies any shortness of breath, hemoptysis or cough. GENITOURINARY: No dysuria or hematuria. MUSCULOSKELETAL: No weakness reported. SKIN: Denies any new rashes or lesions, jaundice or pallor. PSYCHIATRIC: Denies any depression or anxiety. NEUROLOGY: Denies headache, denies any new focal deficits. EARS/NOSE/THROAT: No recent hearing change, congestion, nasal discharge or sore throat. EYES: No pain in eyes, discharge or change in vision. GASTROINTESTINAL: As per HPI. Past Medical History Past Medical History: GERD/Reflux, Hypertension Additional Past Medical History / Comment(s): Hx Colitis and headaches,SVT,vertigo History of Any Multi-Drug Resistant Organisms: None Reported Past Surgical History: No Surgical Hx Reported Additional Past Surgical History / Comment(s): colonoscopy,EP study Past Anesthesia/Blood Transfusion Reactions: Motion Sickness Additional Past Anesthesia/Blood Transfusion Reaction / Comm: never recieved blood Past Psychological History: Anxiety, Depression Smoking Status: Former smoker - Past Family History Mother Family Medical History: Diabetes Mellitus, Fibromyalgia Additional Family Medical History / Comment(s): "heart problems", Father Family Medical History: Cancer, Pneumonia Additional Family Medical History / Comment(s): home o2,prostate [place] Medications and Allergies Home Medications Medication Instructions Recorded Confirmed Type Escitalopram [Lexapro] 10 mg PO HS 04/15/20 04/15/20 History lisinopriL [Zestril] 20 mg PO HS 04/15/20 04/15/20 History Allergies Allergy/AdvReac Type Severity Reaction Status Date / Time No Known Allergies Allergy Verified 04/15/20 09:31 Physical Exam Vitals: Vital Signs Temp Pulse Resp BP Pulse Ox 04/15/20 16:13 98.5 F 77 18 132/75 98 04/15/20 12:30 76 17 143/84 98 04/15/20 12:00 90 20 134/87 98 04/15/20 11:30 83 19 144/93 98 04/15/20 11:00 82 16 136/88 99 04/15/20 10:30 81 14 133/87 99 04/15/20 10:00 79 19 125/84 99 04/15/20 09:40 81 16 124/89 99 04/15/20 09:20 80 16 128/85 98 04/15/20 09:00 73 15 122/86 100 04/15/20 08:29 97.9 F 103 H 18 142/87 99 Intake and Output 04/15/20 04/15/20 04/15/20 06:59 14:59 22:59 Other: Weight 95.254 kg On physical examination, patient appears comfortable in no apparent distress. HEAD: Normocephalic, atraumatic. EYES: No scleral icterus. No conjunctival injection. MOUTH: No lesions, tongue midline. NECK: Trachea midline, no gross abnormalities. CHEST: Clear to auscultation with no wheezing or rhonchi appreciated. HEART: Regular rate and rhythm. ABDOMEN: Soft, mildly tender to palpation. Bowel sounds are positive. No organomegaly. No guarding or rigidity. EXTREMITIES: No pedal edema. SKIN: No rashes, no jaundice. NEUROLOGIC: Alert and oriented x3. No focal deficits. Results CBC & Chem 7: 04/15/20 18:36 04/15/20 08:51 Labs: Abnormal Lab Results - Last 24 Hours (Table) 04/15/20 Range/Units 08:51 Chloride 108 H (98-107) mmol/L Glucose 105 H (74-99) mg/dL Abdominal x-ray: report reviewed (Unremarkable KUB x-ray.) Assessment and Plan (1) Hematochezia Narrative/Plan: 50-year-old male with a medical history significant for GERD and hypertension who presented to the hospital with complaints of blood per rectum and epigastric abdominal pain. The patient reported dark colored stools and some blood per rectum. He reported crampy epigastric abdominal pain. Colonoscopy on 04/05/2020 performed for evaluation of change in bowel habits significant for polypectomy of polyps at the hepatic flexure and transverse colon. The patient does have a history of reflux and occasionally takes Excedrin for pain relief. No family history of colon cancer but he does have a history of Crohn's disease in his brother. Unclear etiology, may represent post-polypectomy bleed, given the nature of bowel movements plan is for EGD to rule out upper GI source of bleeding such as peptic ulcer disease, gastritis, esophagitis, AVM or other etiology. Current Visit: Yes Status: Acute Code(s): K92.1 - MELENA SNOMED Code(s): 452123438 (2) Abdominal pain Current Visit: Yes Status: Acute Code(s): R10.9 - UNSPECIFIED ABDOMINAL PAIN SNOMED Code(s): 43387639 Plan: Supportive care Clear liquid diet Bowel prep ordered Continue to monitor hemoglobin and hematocrit and transfuse as needed Plan for EGD and colonoscopy for further evaluation Further recommendations pending findings of endoscopy Thank you for allowing us to participate in the care of the patient
[2020-04-16] MEDS ORDERED: fentaNYL (PF) 50 MCG/ML 2 ML AMP ONE (09:36)
[2020-04-16] MEDS ORDERED: PROPOFOL 10 MG/ML 20 ML VIAL IV ONE (09:36)
[2020-04-16] MEDS ORDERED: LIDOCAINE 1% INJ 10MG/ML (20 ML MDV) ONE (09:36)
[2020-04-16] MEDS ORDERED: MIDAZOLAM 2 MG/2 ML VIAL ONE (09:36)
[2020-04-16] MEDS ORDERED: SODIUM CHLORIDE 0.9% 500 ML 500 ML IV ONE ×2 (09:44)
--- NOTE | 2020-04-16 11:35 | P.PCN ---
Date of Procedure: 04/16/20 Description of Procedure: Brief history: 50-year-old male with a medical history significant for GERD and hypertension who presented to the hospital due to epigastric pain and concern over GI bleed. The patient underwent colonoscopic evaluation on 04/05/[address] Ez díaz of the surgical service at that time the evaluation was for change in bowel habits and the patient had polypectomy of polyps at the hepatic flexure and in the transverse colon. Subsequently the patient reports developing episodes of dark colored bowel movements with a small amount of blood noted as well. He reports epigastric pain described as crampy in nature. The patient denies any consistent NSAID use reporting that he takes Excedrin occasionally. He does report occasional reflux. No family history of colon cancer but he does report Crohn's disease in his brother. Hemoglobin 15.8 on presentation. KUB x-ray significant for a normal abdomen. Procedure performed: Esophagogastroduodenoscopy with biopsy Colonoscopy with Endo Clip placement Estimated blood loss: Minimal. Preoperative diagnosis: Epigastric abdominal pain, GI bleed, hematochezia Anesthesia: MAC Procedure: After informed consent was obtained from the patient was brought into the endoscopy unit and IV sedation was administered by anesthesia under continuous monitoring. Initially upper endoscopy was done. The Olympus GF 190 video endoscope was inserted into the mouth and esophagus intubated without any difficulty and was gradually advanced into the stomach and duodenum and carefully examined. The bulb and second part of the duodenum appeared normal, with biopsies taken. The scope was then withdrawn into the stomach adequately insufflated with air and upon careful examination the antrum and body, cardia and fundus appeared normal, except for some mild punctate erythema in the antrum and body suggestive of mild gastritis with biopsies taken. The scope was then withdrawn into the esophagus. The GE junction was located at 40 cm to the incisors. It appeared regular with no erythema erosions or ulcerations. Rest of the esophagus appeared normal. Patient tolerated the procedure well. At this time the patient continued to remain sedation. Initial digital rectal examination was normal. Olympus CF 190 video colonoscope was then inserted into the rectum and gradually advanced to the cecum without any difficulty. Careful examination was performed as the scope was gradually being withdrawn. The prep was excellent. The cecum, ascending colon, transverse colon, descending colon, sigmoid colon and rectum appeared normal. The sites of the patient's prior polypectomies were noted with the area at the hepatic flexure ulcerated an approximately 1 cm in size with no active bleed noted, with 3 endoclips placed to ensure continued hemostasis. xion was performed in the rectum and no lesions were noted. Patient tolerated the procedure well. Impression: 1. Mild gastritis. Biopsies of the duodenum and antrum and body. 2. Ulcerated tissue at the site of hepatic flexure polypectomy, no active bleeding with Endo Clip placement 3. Otherwise normal-appearing colon from rectum to cecum with normal-appearing terminal ileum. Recommendations: Findings of this examination were discussed with the patient as well as the surgical team. Okay to resume diet. Okay to resume medications. Continue to monitor her symptomatically. If patient remains stable okay for discharge today.
--- NOTE | 2020-04-16 11:41 | P.PN ---
Progress Note - Text Progress Note Date: 04/16/20 Patient underwent colonoscopy this morning. There is an ulcerated tissue at the hepatic flexure colon polyp biopsy site. Endo Clip was placed. He also has some mild gastritis. Patient states he feels otherwise well. He has no significant abdominal pain. Chronic GI bleed related to endoscopic polypectomy. Patient will be observed. Hopefully he'll be discharged home in the a.m.
--- NOTE | 2020-04-16 14:28 | P.CONS ---
History of Present Illness - Reason for Consult Hypertension, hematochezia - History of Present Illness Patient is a pleasant 50-year-old male was admitted for GI bleed predominantly hematochezia and patient was also having gastroesophageal reflux symptoms and there was a concern of upper GI bleed as well as lower GI bleed. Patient underwent upper GI endoscopy and lower GI endoscopy upper GI endoscopy showed gastritis mild to moderate and patient had a recent colonoscopy with polypectomy. There was an ulcerated tissue at the site of the hepatic flexure polypectomy site without any significant bleeding and Endo Clip was placed in that location. Patient didn't have any dark stools or blood in the stools yesterday today. Patient is clinically doing well probably can be discharged from medical perspective blood pressure is fairly stable uses lisinopril at home. Review of Systems REVIEW OF SYSTEMS: CONSTITUTIONAL: No fever, no malaise, no fatigue. HEENT: No recent visual problems or hearing problems. Denied any sore throat. CARDIOVASCULAR: No chest pain, orthopnea, PND, no palpitations, no syncope. PULMONARY: No shortness of breath, no cough, no hemoptysis. GASTROINTESTINAL: No diarrhea, no nausea, no vomiting, no abdominal pain. NEUROLOGICAL: No headaches, no weakness, no numbness. HEMATOLOGICAL: Denies any bleeding or petechiae. GENITOURINARY: Denies any burning micturition, frequency, or urgency. MUSCULOSKELETAL/RHEUMATOLOGICAL: Denies any joint pain, swelling, or any muscle pain. ENDOCRINE: Denies any polyuria or polydipsia. The rest of the 14-point review of systems is negative. Past Medical History Past Medical History: GERD/Reflux, Hypertension Additional Past Medical History / Comment(s): Hx Colitis and headaches,SVT,vertigo History of Any Multi-Drug Resistant Organisms: None Reported Past Surgical History: No Surgical Hx Reported Additional Past Surgical History / Comment(s): colonoscopy,EP study Past Anesthesia/Blood Transfusion Reactions: Motion Sickness Additional Past Anesthesia/Blood Transfusion Reaction / Comm: never recieved blood Past Psychological History: Anxiety, Depression Smoking Status: Former smoker - Past Family History Mother Family Medical History: Diabetes Mellitus, Fibromyalgia Additional Family Medical History / Comment(s): "heart problems", Father Family Medical History: Cancer, Pneumonia Additional Family Medical History / Comment(s): home o2,prostate [place] Medications and Allergies Home Medications Medication Instructions Recorded Confirmed Type Escitalopram [Lexapro] 10 mg PO HS 04/15/20 04/15/20 History lisinopriL [Zestril] 20 mg PO HS 04/15/20 04/15/20 History Allergies Allergy/AdvReac Type Severity Reaction Status Date / Time No Known Allergies Allergy Verified 04/15/20 09:31 Physical Exam Vitals: Vital Signs Temp Pulse Pulse Resp BP BP Pulse Ox 04/16/20 11:15 86 20 129/60 96 04/16/20 11:00 80 18 125/62 96 04/16/20 10:45 83 18 102/58 95 04/16/20 10:30 98.1 F 87 18 102/57 97 04/16/20 08:00 98.2 F 79 18 133/71 97 04/16/20 04:00 98.0 F 85 18 138/79 98 04/16/20 00:00 98.1 F 80 18 133/77 97 04/15/20 21:00 98.1 F 100 16 162/89 96 04/15/20 18:35 102 H 18 136/86 04/15/20 16:13 98.5 F 77 18 132/75 98 04/15/20 15:30 95 21 120/96 100 04/15/20 14:30 91 13 109/56 100 Intake and Output 04/15/20 04/16/20 04/16/20 22:59 06:59 14:59 Intake Total 200 Balance 200 Intake: IV 200 Other: Voiding Method Toilet Toilet Toilet # Voids 2 # Bowel Movements 1 3 Weight 91.1 kg PHYSICAL EXAMINATION: GENERAL: The patient is alert and oriented x3, not in any acute distress. Well developed, well nourished. HEENT: Pupils are round and equally reacting to light. EOMI. No scleral icterus. No conjunctival pallor. Normocephalic, atraumatic. No pharyngeal erythema. No t hyromegaly. CARDIOVASCULAR: S1 and S2 present. No murmurs, rubs, or gallops. PULMONARY: Chest is clear to auscultation, no wheezing or crackles. ABDOMEN: Soft, nontender, nondistended, normoactive bowel sounds. No palpable organomegaly. MUSCULOSKELETAL: No joint swelling or deformity. EXTREMITIES: No cyanosis, clubbing, or pedal edema. NEUROLOGICAL: Gross neurological examination did not reveal any focal deficits. SKIN: No rashes. Results CBC & Chem 7: 04/15/20 18:36 04/15/20 08:51 Assessment and Plan Plan: -Acute GI bleed most probably lower GI bleed from the polypectomy site and patient had an Endo Clip in that site area. Patient also has gastritis for which patient is on proton pump inhibitor patient will need to be discharged on 30 days of flow proton pump inhibitor. Patient doesn't have any significant evidence of GI bleed today. He will return fairly stable around around 14.9. -Hypertension for which patient on 20 mg of lisinopril which will be continued -Depression is on Lexapro for this. -Gastritis, gastroesophageal reflux disease.
[2020-04-16] MEDS: lisinopriL 20 MG TAB PO SCH (21:03)
[2020-04-16] MEDS: ESCITALOPRAM 10 MG TAB PO SCH (21:03)
[2020-04-16] MEDS: PANTOPRAZOLE 40 MG TABLET PO SCH (21:03)
[2020-04-17] MEDS: PANTOPRAZOLE 40 MG TABLET PO SCH (09:18)
[2020-04-17 09:24] VITALS: BP 124/70; PULSE 93; RESP 18; TEMP 98.1
--- NOTE | 2020-04-17 10:03 | P.DS ---
Providers Date of admission: 04/15/20 10:00 Expected date of discharge: 04/17/20 Attending physician: Ez Edward Consults: 04/15/20 12:24 Consult Physician Routine Consulting Provider: Omi Coronado Consult Reason/Comments: GI bleed Do you want consulting provider notified?: Already Contacted 04/15/20 20:18 Consult Physician Routine Consulting Provider: Nato Holman Consult Reason/Comments: Medical Management Do you want consulting provider notified?: Yes, Notify in am Primary care physician: Belkis Mares [facility] Course: This a 42-year-old male who underwent previous colonoscopy and polypectomy by Dr. Foreman. Patient continues GI bleed. Using the hospital underwent colonoscopy with Endo Clip placement by Dr. davila. Patient did well after the procedure please see hospital chart for details. Patient Condition at Discharge: Good Plan - Discharge Summary Discharge Rx Participant: No New Discharge Prescriptions: No Action Escitalopram [Lexapro] 10 mg PO HS lisinopriL [Zestril] 20 mg PO HS Discharge Medication List Escitalopram [Lexapro] 10 mg PO HS 04/15/20 [History] lisinopriL [Zestril] 20 mg PO HS 04/15/20 [History] Follow up Appointment(s)/Referral(s): Belkis Mares DO [Primary Care Provider] - 1-2 days
--- NOTE | 2020-04-17 15:45 | P.PN ---
Subjective 50-year-old male was admitted for GI bleed predominantly hematochezia and patient was also having gastroesophageal reflux symptoms and there was a concern of upper GI bleed as well as lower GI bleed. Patient underwent upper GI endoscopy and lower GI endoscopy upper GI endoscopy showed gastritis mild to moderate and patient had a recent colonoscopy with polypectomy. There was an ulcerated tissue at the site of the hepatic flexure polypectomy site without any significant bleeding and Endo Clip was placed in that location. Patient didn't have any dark stools or blood in the stools yesterday today. Patient is clinically doing well probably can be discharged from medical perspective blood pressure is fairly stable uses lisinopril at home. 04/17/2020 No more episodes for GI bleed patient didn't have any bowel movement since his colonoscopy. Patient is being discharged today. Constitutional: Denied any fatigue denied any fever. Cardio vascular: denied any chest pain, palpitations Gastrointestinal denied any nausea vomiting Pulmonary: Denied any shortness of breath cough Neurologic denied any new focal deficits All inpatient medications were reviewed and appropriate changes in these medications as dictated in the interval history and assessment and plan. Objective - Vital Signs Vital signs: Vital Signs Temp 98.1 F 04/17/20 08:00 Pulse 93 04/17/20 08:00 Resp 18 04/17/20 08:00 BP 124/70 04/17/20 08:00 Pulse Ox 96 04/17/20 08:00 Intake & Output 04/16/20 04/17/20 04/17/20 18:59 06:59 18:59 Intake Total 880 480 230 Output Total 0 Balance 880 480 230 Weight 91.5 kg Intake: IV 200 Oral 680 480 230 Output: Urine 0 Other: Voiding Method Toilet Toilet Toilet # Voids 1 2 - Exam PHYSICAL EXAMINATION: GENERAL: The patient is alert and oriented x3, not in any acute distress. Well developed, well nourished. HEENT: Pupils are round and equally reacting to light. EOMI. No scleral icterus. No conjunctival pallor. Normocephalic, atraumatic. No pharyngeal erythema. No thyromegaly. CARDIOVASCULAR: S1 and S2 present. No murmurs, rubs, or gallops. PULMONARY: Chest is clear to auscultation, no wheezing or crackles. ABDOMEN: Soft, nontender, nondistended, normoactive bowel sounds. No palpable organomegaly. MUSCULOSKELETAL: No joint swelling or deformity. EXTREMITIES: No cyanosis, clubbing, or pedal edema. NEUROLOGICAL: Gross neurological examination did not reveal any focal deficits. SKIN: No rashes. - Labs CBC & Chem 7: 04/15/20 18:36 04/15/20 08:51 Assessment and Plan Plan: -Acute GI bleed most probably lower GI bleed from the polypectomy site and patient had an Endo Clip in that site area. Patient also has gastritis for which patient is on proton pump inhibitor patient will need to be discharged on 14 days of flow proton pump inhibitor. Patient doesn't have any significant evidence of GI bleed today. hemoglobin is stable -Hypertension for which patient on 20 mg of lisinopril -Depression patient is on Lexapro for this. -Gastritis, gastroesophageal reflux disease.
== END 2020-04-17 11:09 | disposition home or self-care (01) ==
LOC: EC 08:25 → 1SOBS 10:00 → 3SCARD 18:15
PROVIDERS: ADMIT Surgery; ATTEND Surgery
DX: K29.51 Unspecified chronic gastritis with bleeding (principal); B96.81 Helicobacter pylori [H. pylori] as the cause of diseases classified elsewhere; K63.3 Ulcer of intestine; R42 Dizziness and giddiness; R06.02 Shortness of breath; R00.1 Bradycardia, unspecified; R61 Generalized hyperhidrosis; K21.9 Gastro-esophageal reflux disease without esophagitis; I10 Essential (primary) hypertension; I47.1 Supraventricular tachycardia; F41.9 Anxiety disorder, unspecified; F32.9 Major depressive disorder, single episode, unspecified; Z86.010 Personal history of colon polyps; Z79.899 Other long term (current) drug therapy; Z87.19 Personal history of other diseases of the digestive system; Z98.890 Other specified postprocedural states; Z87.898 Personal history of other specified conditions; Z87.891 Personal history of nicotine dependence; Z83.3 Family history of diabetes mellitus; Z82.69 Family history of other diseases of the musculoskeletal system and connective tissue; Z82.49 Family history of ischemic heart disease and other diseases of the circulatory system; Z80.42 Family history of malignant neoplasm of prostate; Z82.5 Family history of asthma and other chronic lower respiratory diseases; Z83.79 Family history of other diseases of the digestive system
CPT/HCPCS: 96376 ×2; 96374; 99291; 36415; 93005; 86900; 86901; 88305; 80053; 83605; 83735; 85025; 85610; 85730; 86850; 88342; 74018; 45382; 43239; G0378 ×4; J2250; J2001; J3010; J2704; C9113 ×2

== ENCOUNTER 2022-02-24 15:22 | Emergency (ER) | payer OTHER ==
[2022-02-24] MEDS ORDERED: SODIUM CHLORIDE 0.9% 1,000 ML IV STA (15:25)
--- NOTE | 2022-02-24 15:28 | ED ---
General Adult HPI - General Stated complaint: [facility] - heat exhaustion Time Seen by Provider: 02/24/22 15:25 Source: patient, EMS, RN notes reviewed Mode of arrival: EMS Limitations: no limitations - History of Present Illness Initial comments: Patient is a pleasant 51-year-old male presents emergency Department with complaints of lightheadedness. Patient did donate plasma this morning. 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 Patient was sweating a lot. Patient felt generally weak and lightheaded and if he may pass out. Patient was having some dry heaves. EMS provided Zofran and 400 mL normal saline bolus. Patient states he is feeling much better following this. EMS reports blood pressure 84 systolic. - Related Data Home Medications Medication Instructions Recorded Confirmed Escitalopram [Lexapro] 10 mg PO HS 04/15/20 04/15/20 lisinopriL [Zestril] 20 mg PO HS 04/15/20 04/15/20 Previous Rx's Medication Instructions Recorded Omeprazole [PriLOSEC] 40 mg PO [id number] #14 capsule. 04/17/20 Allergies Allergy/AdvReac Type Severity Reaction Status Date / Time No Known Allergies Allergy Verified 02/24/22 15:32 Review of Systems ROS Statement: Those systems with pertinent positive or pertinent negative responses have been documented in the HPI. ROS Other: All systems not noted in ROS Statement are negative. Constitutional: Denies: fever Eyes: Denies: eye pain ENT: Denies: ear pain Respiratory: Denies: cough Cardiovascular: Denies: chest pain Endocrine: Reports: fatigue Gastrointestinal: Reports: nausea. Denies: abdominal pain Genitourinary: Denies: dysuria Musculoskeletal: Denies: back pain Skin: Denies: rash Neurological: Denies: headache Past Medical History Past Medical History: GERD/Reflux, Hypertension Additional Past Medical History / Comment(s): Hx Colitis and headaches, SVT,vertigo History of Any Multi-Drug Resistant Organisms: None Reported Past Surgical History: No Surgical Hx Reported Additional Past Surgical History / Comment(s): colonoscopy,EP study Past Anesthesia/Blood Transfusion Reactions: Motion Sickness Additional Past Anesthesia/Blood Transfusion Reaction / Comment(s): never recieved blood Past Psychological History: Anxiety, Depression Smoking Status: Former smoker - Past Family History Mother Family Medical History: Diabetes Mellitus, Fibromyalgia Additional Family Medical History / Comment(s): "heart problems", Father Family Medical History: Cancer, Pneumonia Additional Family Medical History / Comment(s): home o2,prostate [place] General Exam Limitations: no limitations General appearance: alert, in no apparent distress Head exam: Present: atraumatic Eye exam: Present: normal appearance ENT exam: Present: normal oropharynx. Absent: mucous membranes dry Neck exam: Present: normal inspection Respiratory exam: Present: normal lung sounds bilaterally Cardiovascular Exam: Present: regular rate, normal rhythm GI/Abdominal exam: Present: soft. Absent: tenderness Extremities exam: Present: normal inspection. Absent: pedal edema, calf tenderness Neurological exam: Present: alert, CN II-XII intact. Absent: motor sensory deficit Expanded Neurological exam: Present: protecting the airway Speech: Present: fluid speech Motor strength exam: RUE: 5, LUE: 5, RLE: 5, LLE: 5 Eye Response: (4) open spontaneously Motor Response: (6) obeys commands Verbal Response: (5) oriented Psychiatric exam: Present: normal affect, normal mood Skin exam: Present: other (Patient's shirt is wet from recent sweating) Course Vital Signs 02/24/22 15:25 Temperature 98.9 F Pulse Rate 103 H Respiratory 18 Rate Blood Pressure 129/86 O2 Sat by Pulse 95 Oximetry EKG Findings - EKG Comments: EKG Findings:: Sinus tachycardia 104. MI 132. QRS 88. QT 321. QTC 31. Normal axis. Normal QRS. Nonspecific T waves. Medical Decision Making - Medical Decision Making Patient reevaluated and still feeling well and requesting discharge. Patient updated. - Lab Data Result diagrams: 02/24/22 15:35 02/24/22 15:35 Lab Results 02/24/22 02/24/22 Range/Units 15:35 15:35 WBC 7.5 (3.8-10.6) k/uL RBC 5.96 H (4.30-5.90) m/uL Hgb 16.9 (13.0-17.5) gm/dL Hct 50.3 (39.0-53.0) % MCV 84.5 (80.0-100.0) fL MCH 28.3 (25.0-35.0) pg MCHC 33.5 (31.0-37.0) g/dL RDW 12.9 (11.5-15.5) % Plt Count 188 (150-450) k/uL MPV 10.6 Neutrophils % 67 % Lymphocytes % 24 % Monocytes % 6 % Eosinophils % 2 % Basophils % 1 % Neutrophils # 5.0 (1.3-7.7) k/uL Lymphocytes # 1.8 (1.0-4.8) k/uL Monocytes # 0.5 (0-1.0) k/uL Eosinophils # 0.2 (0-0.7) k/uL Basophils # 0.0 (0-0.2) k/uL Sodium 138 (137-145) mmol/L Potassium 4.2 (3.5-5.1) mmol/L Chloride 106 (98-107) mmol/L Carbon Dioxide 22 (22-30) mmol/L Anion Gap 10 mmol/L BUN 16 (9-20) mg/dL Creatinine 1.04 (0.66-1.25) mg/dL Est GFR (CKD-EPI)AfAm >90 (>60 ml/min/1.73 sqM) Est GFR (CKD-EPI)NonAf 84 (>60 ml/min/1.73 sqM) Glucose 137 H (74-99) mg/dL Calcium 8.1 L (8.4-10.2) mg/dL Total Bilirubin 0.5 (0.2-1.3) mg/dL AST 23 (17-59) U/L ALT 15 (4-49) U/L Alkaline Phosphatase 56 (38-126) U/L Total Protein 6.0 L (6.3-8.2) g/dL Albumin 3.6 (3.5-5.0) g/dL Disposition Clinical Impression: Heat exhaustion Disposition: HOME SELF-CARE Condition: Stable Instructions (If sedation given, give patient instructions): Dizziness (ED) Additional Instructions: Please do follow-up with primary care physician in the next couple days for recheck. Increase fluids. Return for weakness, dizziness, worsening or change in symptoms, feeling to pass out, or any other concerns Is patient prescribed a controlled substance at d/c from ED?: No Referrals: Belkis Mares DO [Primary Care Provider] - 1-2 days Time of Disposition: 16:53
[2022-02-24 15:31] VITALS: RESP 18; TEMP 98.9
[2022-02-24 16:19] LABS: ALT 15 U/L (4-49); AST 23 U/L (17-59); African American GFR (CKD) >90 (>60 ml/min/1.73 sqM); Albumin 3.6 g/dL (3.5-5.0); Alkaline Phosphatase 56 U/L (38-126); Anion Gap 10 mmol/L; Blood Urea Nitrogen 16 mg/dL (9-20); Calcium 8.1 mg/dL (8.4-10.2); Carbon Dioxide 22 mmol/L (22-30); Chloride 106 mmol/L (98-107); Glucose 137 mg/dL (74-99); Non-African American GFR(CKD) 84 (>60 ml/min/1.73 sqM); Potassium 4.2 mmol/L (3.5-5.1); Sodium 138 mmol/L (137-145); Total Bilirubin 0.5 mg/dL (0.2-1.3)
[2022-02-24 16:20] LABS: Basophils % (A) 1 %; Eosinophils # (A) 0.2 k/uL (0-0.7); Eosinophils % (A) 2 %; HCT 50.3 % (39.0-53.0); HGB 16.9 gm/dL (13.0-17.5); Lymphocytes # (A) 1.8 k/uL (1.0-4.8); Lymphocytes % (A) 24 %; MCH 28.3 pg (25.0-35.0); MCHC 33.5 g/dL (31.0-37.0); MCV 84.5 fL (80.0-100.0); Mean Platelet Volume 10.6; Monocytes # (A) 0.5 k/uL (0-1.0); Monocytes % (A) 6 %; Neutrophils % (A) 67 %; Platelet Count 188 k/uL (150-450); RBC 5.96 m/uL (4.30-5.90); RDW 12.9 % (11.5-15.5); WBC 7.5 k/uL (3.8-10.6)
[2022-02-24] MEDS ORDERED: CALCIUM CARB-VIT D 500 MG-5 MCG TAB PO STA (16:24)
[2022-02-24 17:23] VITALS: BP 146/88; PULSE 85
== END 2022-02-24 17:22 | disposition home or self-care (01) ==
LOC: EC 15:22
DX: T67.5XXA Heat exhaustion, unspecified, initial encounter (principal); I10 Essential (primary) hypertension; K21.9 Gastro-esophageal reflux disease without esophagitis; F41.9 Anxiety disorder, unspecified; F32.A Depression, unspecified; R42 Dizziness and giddiness; Z87.891 Personal history of nicotine dependence; Z79.899 Other long term (current) drug therapy; Z79.83 Long term (current) use of bisphosphonates
CPT/HCPCS: 36415; 80053; 85025; 93005; 96360; 99285

== ENCOUNTER → 2022-04-19 | Outpatient (CLI) | payer OTHER ==
--- NOTE | 2022-04-19 17:02 | P.SLEEP ---
History of Present Illness DATE: 04/19/2022 CONSULTATION/NEW PATIENT EVALUATION HISTORY OF PRESENT ILLNESS/SLEEP-WAKE EVALUATION: 52 year old gentleman had been evaluated in the sleep center for possible obstructive sleep apnea hypopnea syndrome. Patient has history of obstructive sleep apnea hypopnea syndrome in the past, quit CPAP treatment about 3-1/2 years ago. Patient increased his weight from 209 to 216 pounds during that time. SLEEP SCHEDULE: Usually sleep schedule on weekdays from 10 PM until 5:30 AM, during days off from 10 PM until 8:30 AM. FALLING ASLEEP: Patient does have problems with falling asleep, although no TV in bedroom. DURING SLEEP: Patient snores, has episodes of stop breathing during the sleep. No history of hypnogogical hallucinations, sleep paralysis, or cataplexy. DURING THE DAY/WAKE STATE: In the morning patient wake up tired, has traveled to place attention, falling asleep during the day, has problems with memory, concentration, irritability, anxiety. Laquey sleepiness scale is in very high range 18. Patient does not take any scheduled naps, but may fell asleep unpredictably. PAST MEDICAL HISTORY: Hypertension, arthritis, headaches, acid reflux. PAST SURGICAL HISTORY: None. MEDICATIONS: None. SOCIAL HISTORY: Negative for smoking, alcohol consumption occasional. FAMILY HISTORY: Heart problems, asthma, sleep apnea, headaches, acid reflux. REVIEW OF SYSTEMS: Snoring, witnessed episodes of stop breathing during the sleep, sleepiness. No fevers. No double vision. No recent chest pain. No shortness of breath. No abdominal pain. No bleeding episodes. No blood in urine. No seizure episodes. PHYSICAL EXAMINATION: GENERAL: A pleasant patient without any distress. VITAL SIGNS: BP 163/91 , HR 96 , RR 18 , weight 216 pounds, height 5 foot 9 and three-quarter inches, body mass index 31.2 . HEENT: PERRLA, EOMI. Evaluation of oropharynx showed tongue protrudes midline, low position of soft palate Mallampati 3. NECK: Supple. No JVD. Thyroid is not palpable. 17-1/4 inches in circumference. LUNGS: Clear to percussion and to auscultation. Good air exchange. No wheezing or rhonchi. HEART: S1, S2 regular. No murmurs, gallops or rubs. ABDOMEN: Soft and nontender. Bowel sounds are present. No organomegaly appreciated. EXTREMITIES: No clubbing or cyanosis. [employer] INSPECTION: Awake, alert, and oriented x3. Cranial nerves 2 to 7 intact. There is no fasciculation or atrophy noted. No focal deficits observed. ASSESSMENT: 1. Snoring, witnessed episodes of stop breathing during the sleep, low position of soft palate Mallampati 3, wide neck 17-1/4 inches, sleepiness Laquey Sleepiness Scale significantly increased to 18. History of obstructive sleep apnea hypopnea syndrome in the past. Obstructive sleep apnea-hypopnea syndrome. 2. Mild obesity body mass index 31.2. 3 hypertension. 4. Restless leg symptoms. 5 headaches. 6. History of arthritis. 7. Acid reflux. 8. History of cardiac arrhythmia including episodes of ventricular tachycardia and cardiac pauses in the past. PLAN: 1. Polysomnography for evaluation of patient's breathing during sleep. 2. CPAP/BiPAP titration if sleep study confirms obstructive sleep apnea- hypopnea syndrome. 3. Preferable position during sleep on the side. 4. No driving if patient feels any sleepiness. Patient is aware of civil and criminal liability for unsafe driving. 5. Sleep hygiene with regular sleep time for at least 7.5-8 hours. 6. Watching weight. Thank you very much for referring this patient for consultation. Sincerely, Sadiq Stanford MD, PhD, FAASM. Diplomat of [place] [employer], Sleep Medicine Board by [place] [employer] [place] [employer] Assistant St[employer] of [facility] [place] Past Medical History Past Medical History: GERD/Reflux, Hypertension Additional Past Medical History / Comment(s): Hx Colitis and headaches,SVT,vertigo History of Any Multi-Drug Resistant Organisms: None Reported Past Surgical History: No Surgical Hx Reported Additional Past Surgical History / Comment(s): colonoscopy,EP study Past Anesthesia/Blood Transfusion Reactions: Motion Sickness Additional Past Anesthesia/Blood Transfusion Reaction / Comment(s): never recieved blood Past Psychological History: Anxiety, Depression Smoking Status: Former smoker - Past Family History Mother Family Medical History: Diabetes Mellitus, Fibromyalgia Additional Family Medical History / Comment(s): "heart problems", Father Family Medical History: Cancer, Pneumonia Additional Family Medical History / Comment(s): home o2,prostate [place] Medications and Allergies Home Medications Medication Instructions Recorded Confirmed Type Escitalopram [Lexapro] 10 mg PO HS 04/15/20 04/15/20 History lisinopriL [Zestril] 20 mg PO HS 04/15/20 04/15/20 History Omeprazole [PriLOSEC] 40 mg PO AC-BASILKFST #14 capsule. 04/17/20 Rx Allergies Allergy/AdvReac Type Severity Reaction Status Date / Time No Known Allergies Allergy Verified 02/24/22 15:32 Sleep Note - Sleep Note Sleep Note: Temperature: Pulse Rate: Respiratory Rate: Blood Pressure: SpO2: Height: Weight: BMI: Neck Circumference:
== END ==
LOC: SLEEP 15:35
PROVIDERS: ATTEND Internal Medicine
DX: G47.33 Obstructive sleep apnea (adult) (pediatric) (principal); E66.9 Obesity, unspecified; Z68.31 Body mass index [BMI] 31.0-31.9, adult; I10 Essential (primary) hypertension; R51.9 Headache, unspecified; K21.9 Gastro-esophageal reflux disease without esophagitis; M19.90 Unspecified osteoarthritis, unspecified site; G25.81 Restless legs syndrome; Z86.79 Personal history of other diseases of the circulatory system; Z99.89 Dependence on other enabling machines and devices
CPT/HCPCS: 99211

== ENCOUNTER → 2023-01-23 | Outpatient (CLI) | payer OTHER ==
--- NOTE | 2023-01-23 17:24 | P.PN ---
Subjective DATE: 01/23/2023 FOLLOW UP VISIT. Patient with obstructive sleep apnea hypopnea syndrome return to sleep center for follow-up visit. Recently patient had sleep study which documented obstructive sleep apnea hypopnea syndrome. Patient was initiated on PAP therapy and today is first visit after treatment was started. Patient was able to use PAP equipment every night for the whole night. The patient does not have significant problems with the mask, PAP pressure and humidification. Drayton sleepiness scale is increased to 14. I checked information from PAP unit. PAP unit pressure 5-13, average 8.6 cm H2O. Usage is 87% and 50 % for more then 4 hours, average 4.25 hours per night. Leak is 11.5 l/m, which is in acceptable range. Apnea Hypopnea Index is to 1.5, which is normal. During physical exam: GENERAL: A pleasant patient without any distress. VITAL SIGNS: BP 150/82, HR 87, RR 18 , weight 219.4, temperature 98.0, oxygen saturation at room air 95% . HEENT: PERRLA, EOMI.low position of soft palate, Mallapati 3 . NECK: Supple. No JVD. LUNGS: Clear to percussion and to auscultation. Good air exchange. No wheezing or rhonchi. HEART: S1, S2 regular. ABDOMEN: Soft and nontender.[] EXTREMITIES: No clubbing or cyanosis. STONE SAWYER: Awake, alert, and oriented x3. No focal deficit. Impressions: 1. Obstructive sleep apnea-hypopnea syndrome. Patient demonstrated borderline compliance with treatment, benefiting from treatment. 2. History of hypertension. 3. History of headaches. 4. Acid reflux. 5. History of cardiac arrhythmia including episodes of ventricular tachycardia and cardiac pauses in the past. 6. History of restless leg symptoms. 7. Periodic limb movements 31.2 times per hour with 0.8 micro-arousals per hour. 8. Mild obesity Plan: 1. Continue using PAP equipment every night for the whole night. 2. To change air filter at least 1-2 times per month. 3. PAP unit should stay lower then position of the head. 4. Advised patient to remove all remaining water from humidifier canister daily and make it dry after each usage. Refill canister with fresh distilled water before each usage. 5. Sleep hygiene with regular time in bed for at least 8 hours. 6. Precautions related to driving. No driving if feel any sleepiness. 7. I will maintain prescription for PAP supplies including mask, tube, filters. 8. Follow up visit in 6 months or earlier if patient has any problems. 9. Watching weight. 10. We may consider treatment with dopaminergic agonists for periodic limb movements if it will be clinically necessary. Thank you very much for allowing me to participate in the management of your patient. Sadiq Stanford MD, PhD, FAASM. Diplomat of [place] [employer], Sleep Medicine Board by [place] [employer] Mat Maker of [facility] [place]
== END ==
LOC: 3 N SLEEP 15:33
PROVIDERS: ATTEND Internal Medicine
DX: G47.33 Obstructive sleep apnea (adult) (pediatric) (principal); E66.9 Obesity, unspecified; G25.81 Restless legs syndrome; I10 Essential (primary) hypertension; K21.9 Gastro-esophageal reflux disease without esophagitis; Z99.89 Dependence on other enabling machines and devices
CPT/HCPCS: 99212

== ENCOUNTER 2023-05-07 06:59 | Day surgery (SDC) | payer OTHER ==
[2023-05-06 08:57] VITALS: BMI 31.7
[~2023-05-07 06:59] MED LIST changes: -LIDOCAINE 1% (10MG/ML) FOR IV START INTRADERMA PRN; -LIDOCAINE 1% INJ 10MG/ML (20 ML MDV) ONE; -MIDAZOLAM 2 MG/2 ML VIAL IV PRN; -ONDANSETRON 4 MG/2 ML VIAL IVP PRN; -PROPOFOL 10 MG/ML 20 ML VIAL IV ONE; -fentaNYL (PF) 50 MCG/ML 2 ML AMP IV PRN
[2023-05-07 07:31] VITALS: TEMP 98.3
[2023-05-07] MEDS ORDERED: PROPOFOL 10 MG/ML 20 ML VIAL IV ONE (08:11)
[2023-05-07] MEDS ORDERED: LIDOCAINE 1% INJ 10MG/ML (20 ML MDV) ONE (08:11)
--- NOTE | 2023-05-07 08:16 | P.GSHP ---
History of Present Illness H&P Date: 05/07/23 Chief Complaint: GI bleed, change in bowel habits 53-year-old male here for upper and lower endoscopy. Patient has history of previous colon polyps. Describes intermittent upper abdominal discomfort. No antiacids. Patient had an EGD and colonoscopy 3 years ago showing polyps and gastritis. He was H. pylori positive. Describes black stools periodically. Past Medical History Past Medical History: GERD/Reflux, Hypertension Additional Past Medical History / Comment(s): Hx Colitis and headaches,SVT,vertigo History of Any Multi-Drug Resistant Organisms: None Reported Past Surgical History: No Surgical Hx Reported Additional Past Surgical History / Comment(s): colonoscopy,EP study, Past Anesthesia/Blood Transfusion Reactions: No Reported Reaction, Motion Sickness Additional Past Anesthesia/Blood Transfusion Reaction / Comment(s): never recieved blood Smoking Status: Former smoker - Past Family History Mother Family Medical History: Diabetes Mellitus, Fibromyalgia Additional Family Medical History / Comment(s): "heart problems", Father Family Medical History: Cancer, Pneumonia Additional Family Medical History / Comment(s): home o2,prostate CA Medications and Allergies Home Medications Medication Instructions Recorded Confirmed Type Escitalopram [Lexapro] 10 mg PO HS 04/15/20 05/07/23 History lisinopriL [Zestril] 20 mg PO HS 04/15/20 05/07/23 History Omeprazole [PriLOSEC] 40 mg PO RONBRKFST #14 capsule. 04/17/20 05/07/23 Rx Allergies Allergy/AdvReac Type Severity Reaction Status Date / Time No Known Allergies Allergy Verified 05/07/23 07:28 Surgical - Exam Vital Signs Temp Pulse Resp BP Pulse Ox 98.3 F 69 16 157/93 97 05/07/23 07:26 05/07/23 07:26 05/07/23 07:26 05/07/23 07:26 05/07/23 07:26 Physical exam: General: Well-developed, well-nourished HEENT: Normocephalic, sclerae nonicteric Abdomen: Nontender, nondistended Extremities: No edema Neuro: Alert and oriented Assessment and Plan (1) Abdominal pain Narrative/Plan: Will proceed with upper and lower endoscopy Current Visit: No Status: Acute Code(s): R10.9 - UNSPECIFIED ABDOMINAL PAIN SNOMED Code(s): 30478620
--- NOTE | 2023-05-07 08:32 | P.PCN ---
Date of Procedure: 05/07/23 Procedure(s) Performed: PREOPERATIVE DIAGNOSIS: Epigastric pain, melena, change in bowel habits, history of polyps POSTOPERATIVE DIAGNOSIS: Diffuse gastritis, small hiatal hernia, mild colitis PROCEDURE: 1. EGD with biopsy 2. Colonoscopy with biopsy ANESTHESIA: [facility] [place] SURGEON: Ez Edward M.D. SPECIMENS: Antrum, body of stomach, random colon ENDOSCOPIC PROCEDURE: The patient was on the endoscopy table in the left decubitus position. The Olympus gastroscope was inserted into the oropharynx and passed under direct visualization to the region of the third portion of the duodenum. From that point the scope was slowly withdrawn inspecting all surfaces carefully. There were no neoplastic inflammatory or polypoid lesions throughout the duodenum. The pylorus was widely patent. The stomach was carefully inspected. There was diffuse gastritis present. A biopsy of the antrum took place to rule out H. pylori. An additional biopsy took place of the body of the stomach where there were thick and rugated throughout. Retroflexion revealed a small hiatal hernia. The GE junction was present 2 cm above the diaphragmatic hiatus. The esophagus was then carefully examined. There were no neoplastic inflammatory or polypoid lesions throughout the visualized esophagus. The patient was kept on the endoscopy table in the left decubitus position. The Olympus colonoscope was inserted into the anus and passed under direct visualization to the base of the cecum. The appendiceal orifice was visualized. From that point the scope was slowly withdrawn inspecting all surfaces carefully. There were no neoplastic or polypoid lesions throughout the cecum, ascending, transverse, descending, sigmoid and rectum. In the distal half of the colon or so the mucosa appeared slightly more edematous and pink in color. Random colon biopsies were taken. There was no visible diverticulosis noted. Digital rectal examination was normal. The patient was taken to the recovery room in stable condition per anesthesia guidelines. RECOMMENDATIONS: Await biopsy results. Resume antiacid therapy.
[2023-05-07 09:00] VITALS: BP 136/88; PULSE 88
[2023-05-07 09:01] VITALS: RESP 20
== END 2023-05-07 09:16 | disposition home or self-care (01) ==
LOC: ORWHC2ENDO 06:59
PROVIDERS: ATTEND Surgery
DX: K29.50 Unspecified chronic gastritis without bleeding (principal); B96.81 Helicobacter pylori [H. pylori] as the cause of diseases classified elsewhere; K52.9 Noninfective gastroenteritis and colitis, unspecified; K44.9 Diaphragmatic hernia without obstruction or gangrene; K21.9 Gastro-esophageal reflux disease without esophagitis; I10 Essential (primary) hypertension; Z87.891 Personal history of nicotine dependence; Z86.010 Personal history of colon polyps; Z79.899 Other long term (current) drug therapy
CPT/HCPCS: 88305; 88342; 45380; 43239; J2001; J2704

== ENCOUNTER 2024-01-27 05:40 | Inpatient (IN) | payer OTHER ==
[~2024-01-27 05:40] MED LIST changes: -LACTATED RINGERS 1,000 ML IV SCH; +SODIUM CHLORIDE 0.9% 500 ML BAG ONE
[2024-01-27] MEDS ORDERED: HEPARIN SOD,PORK IN 0.45% NACL 250 ML IV ONE (06:37)
[2024-01-27] MEDS ORDERED: HEPARIN SODIUM 1,000 UN/ML (10ML VL) ONE (06:37)
[2024-01-27] MEDS ORDERED: ASPIRIN 325 MG TAB ONE (06:37)
[2024-01-27] MEDS ORDERED: ASPIRIN 81 MG ONE (06:38)
[2024-01-28] MEDS ORDERED: PANTOPRAZOLE 40 MG TABLET PO ONE (08:28)
[2024-01-28] MEDS ORDERED: CYCLOBENZAPRINE 10 MG TAB ONE ×2 (08:28→20:41)
[2024-01-28] MEDS ORDERED: lisinopriL 10 MG TAB ONE (08:28)
[2024-01-28] MEDS ORDERED: HEPARIN SOD,PORK IN 0.45% NACL 250 ML IV ONE (08:42)
[2024-01-28] MEDS ORDERED: HEPARIN SODIUM 1,000 UN/ML (10ML VL) ONE (11:12)
[2024-01-28] MEDS ORDERED: HEPARIN SODIUM,PORCINE 5,000 UNIT/ML 1 ML VIAL ONE (20:41)
[2024-01-29] MEDS ORDERED: cloNIDine HCL 0.1 MG TAB ONE ×2 (05:42→15:15)
[2024-01-29] MEDS ORDERED: lisinopriL 10 MG TAB ONE (08:08)
[2024-01-29] MEDS ORDERED: PANTOPRAZOLE 40 MG TABLET PO ONE (08:08)
[2024-01-29] MEDS ORDERED: CYCLOBENZAPRINE 10 MG TAB ONE (08:08)
[2024-01-29] MEDS ORDERED: HEPARIN SODIUM,PORCINE 5,000 UNIT/ML 1 ML VIAL ONE ×2 (08:09→15:16)
--- NOTE | 2024-02-24 14:08 | CA ---
Transthoracic Echo Report Name: Kleber Frank Age: 53 Gender: M : 1970 Exam Date: 01/29/2024 08:39 Exam Location: [place] [facility] Ht (in): 69 Wt (lb): 215 Ordering Physician: Attending/Referring Phys: Ammonium Sulfate Operator Rhina Stapleton RDCS Procedure CPT: Indications: Cardiac Hx: Technical Quality: Technically difficult study Contrast 1: Definity Total Dose (mL): 2 Contrast 2: Total Dose (mL): MEASUREMENTS (Male / Female) Normal Values 2D ECHO LV Diastolic Diameter PLAX 4.7 cm 4.2 - 5.9 / 3.9 - 5.3 cm LV Systolic Diameter PLAX 3.1 cm IVS Diastolic Thickness 1.3 cm 0.6 - 1.0 / 0.6 - 0.9 cm LVPW Diastolic Thickness 1.3 cm 0.6 - 1.0 / 0.6 - 0.9 cm LV Relative Wall Thickness 0.5 RV Internal Dim ED PLAX 3.1 cm LA Systolic Diameter LX 4.0 cm 3.0 - 4.0 / 2.7 - 3.8 cm LA Volume 65.6 cm??? 18 - 58 / 22 - 52 cm??? LA Volume Index 29.7 cm???/m??? 16 - 28 cm???/m??? M-MODE Aortic Root Diameter MM 3.9 cm AV Cusp Separation MM 2.6 cm DOPPLER AV Peak Velocity 124.9 cm/s AV Peak Gradient 6.2 mmHg MV Area PHT 2.8 cm??? Mitral E Point Velocity 58.3 cm/s Mitral A Point Velocity 81.0 cm/s Mitral E to A Ratio 0.7 MV Deceleration Time 269.4 ms FINDINGS Left Ventricle Left ventricular ejection fraction is estimated at 55-60 %. Left ventricular cavity size normal.Mildly increased left ventricular wall thickness. Normal left ventricular systolic function with no obvious regional wall motion abnormalities. Right Ventricle Normal right ventricular size and function. Unable to estimate the right ventricular systolic pressure. Right Atrium Normal right atrial size. No right atrial thrombus or mass seen. Left Atrium Mildly increased left atrial volume. Mildly increased left atrial area. No left atrial thrombus or mass present. Mitral Valve Structurally normal mitral valve. No mitral stenosis, regurgitation or prolapse. Aortic Valve Trileaflet aortic valve. No aortic valve stenosis or regurgitation. Tricuspid Valve Structurally normal tricuspid valve. No tricuspid stenosis, regurgitation or prolapse. Pulmonic Valve Structurally normal pulmonic valve. No pulmonic regurgitation. Pericardium No pericardial or pleural effusion. Aorta Mild aortic dilatation at the level of the sinuses of valsalva 39 mm CONCLUSIONS Technically difficult study. Definity ECHO contrast used for improved visualization of the endocardial borders (inadequate visualization of two or more contiguous segments). Normal left ventricular size and systolic function No significant Doppler abnormalities Previewed by: Dr. Ita Domínguez MD (Electronically Signed) Final Date: 29 January 2024 12:15
--- NOTE | 2024-02-26 10:50 | US ---
Kleber Frank ID: [id number] : 1970 EXAMINATION TYPE: US carotid duplex BILAT DATE OF EXAM: 01/28/2024 COMPARISON: NONE CLINICAL INDICATION: 53 year-old male history of hypertension, dizziness, assess for stenosis TECHNIQUE: Carotid duplex ultrasound examination. Indirect Doppler criteria was utilized. FINDINGS: EXAM MEASUREMENTS: RIGHT: Peak Systolic Velocity (PSV) cm/sec ----- Right CCA: 100.2 ----- Right ICA: 74.9 ----- Right ECA: 85.3 ICA/CCA ratio: 0.7 RIGHT: End Diastole cm/sec ----- Right CCA: 17.3 ----- Right ICA: 21.7 ----- Right ECA: 0 LEFT: Peak Systolic Velocity (PSV) cm/sec ----- Left CCA: 98.7 ----- Left ICA: 72.8 ----- Left ECA: 84.5 ICA/CCA ratio: 0.7 LEFT: End Diastole cm/sec ----- Left CCA: 20.2 ----- Left ICA: 24.4 ----- Left ECA: 6.5 VERTEBRALS (direction of flow): Right Vertebral: Antegrade Left Vertebral: Antegrade RATINGS ANALYST NOTES: Some intimal thickening within the bilateral carotid bifurcations IMPRESSION: No hemodynamically significant internal carotid artery stenosis on either side. Criteria for Assigning % of Stenosis / Diameter reduction (Estimation based on the indirect measurements of the internal carotid artery velocities (ICA PSV). 1. Normal (no stenosis)=ICA PSV < 125 cm/s: ratio < 2.0: ICA EDV<40 cm/s. 2. Less than 50% stenosis=ICA PSV < 125 cm/s: ratio < 2.0: ICA EDV<40 cm/s. 3. 50 to 69% stenosis=ICA PSV of 125 to 230 cm/s: ration 2.0 ? 4.0: ICA EDV 40-100 cm/s. 4. Greater than 70% stenosis to near occlusion= ICA PSV > 230 cm/s: ratio > 4.0: ICA EDV > 100 cm/s. 5. Near occlusion= ICA PSV velocities may be low or undetectable: variable ratio and ICA EDV. 6. Total occlusion=unable to detect flow.
--- NOTE | 2024-02-26 11:35 | XR ---
EXAMINATION TYPE: XR chest 2V DATE OF EXAM: 01/27/2024 COMPARISON: Chest radiographs from 06/01/2019 TECHNIQUE: XR chest 2V Frontal and lateral views of the chest. CLINICAL INDICATION:Male, 53 years old with history of SOB DIZZY; FINDINGS: Lungs/Pleura: There is no evidence of pleural effusion, focal consolidation, or pneumothorax. Pulmonary vascularity: Unremarkable. Heart/mediastinum: Cardiomediastinal silhouette is unremarkable. Musculoskeletal: No acute osseous pathology. IMPRESSION: No acute cardiopulmonary disease/process. [facility], , 02/26/2024 11:33 AM
== END 2024-01-29 16:59 | disposition home or self-care (01) | DRG 310 ==
LOC: DISRECOVER 05:40
PROVIDERS: ADMIT Emergency Medicine; ATTEND Emergency Medicine
DX: R00.1 Bradycardia, unspecified (principal); K21.9 Gastro-esophageal reflux disease without esophagitis; F32.A Depression, unspecified; E86.0 Dehydration; G47.33 Obstructive sleep apnea (adult) (pediatric); R79.89 Other specified abnormal findings of blood chemistry; F41.9 Anxiety disorder, unspecified; I10 Essential (primary) hypertension; F10.11 Alcohol abuse, in remission; Z87.891 Personal history of nicotine dependence; Z79.899 Other long term (current) drug therapy
CPT/HCPCS: 71046; 93005; 93306; 93880; 96360; 99285

== ENCOUNTER 2024-05-12 08:39 | Day surgery (SDC) | payer OTHER ==
[2024-05-06 13:11] VITALS: BMI 31.4
[2024-05-12] MEDS: IV FLUID CONTINUATION 1,000 ML IV ONE (09:01)
[2024-05-12 09:29] LABS: Basophils % (A) 0 %; Eosinophils # (A) 0.1 k/uL (0-0.7); Eosinophils % (A) 2 %; Lymphocytes # (A) 2.3 k/uL (1.0-4.8); Lymphocytes % (A) 33 %; MCH 27.8 pg (25.0-35.0); MCHC 32.6 g/dL (31.0-37.0); MCV 85.3 fL (80.0-100.0); Mean Platelet Volume 8.9; Monocytes # (A) 0.4 k/uL (0-1.0); Monocytes % (A) 5 %; Neutrophils # (A) 3.9 k/uL (1.3-7.7); Neutrophils % (A) 57 %; Platelet Count 163 k/uL (150-450); RBC 5.75 m/uL (4.30-5.90); WBC 6.8 k/uL (3.8-10.6)
[2024-05-12 09:52] LABS: African American GFR (CKD) >90 (>60 ml/min/1.73 sqM); Anion Gap 3 mmol/L; Blood Urea Nitrogen 17 mg/dL (9-20); Calcium 8.9 mg/dL (8.4-10.2); Carbon Dioxide 31 mmol/L (22-30); Chloride 104 mmol/L (98-107); Glucose 92 mg/dL (74-99); Non-African American GFR(CKD) 84 (>60 ml/min/1.73 sqM); Sodium 138 mmol/L (137-145)
[2024-05-12] MEDS ORDERED: METOPROLOL TARTRATE 5 MG/5 ML VIAL IVP ONE (10:35)
[2024-05-12] MEDS ORDERED: ISOPROTERENOL 250 MCG/1.25 ML SYR IV ONE (10:35)
[2024-05-12] MEDS ORDERED: MIDAZOLAM 2 MG/2 ML VIAL ONE (10:35)
[2024-05-12] MEDS ORDERED: fentaNYL (PF) 50 MCG/ML 2 ML AMP ONE (10:35)
[2024-05-12] MEDS: LIDOCAINE 1% INJ 10MG/ML (20 ML MDV) SQ ONE (11:05)
[2024-05-12] MEDS: HEPARIN SODIUM (1,000 UNIT/ML) 1,000 UNIT in SODIUM CHLORIDE 0.9% 1,000 ML IRRIGATION ONE (13:22)
--- NOTE | 2024-05-12 13:37 | P.HPCAR ---
History of Present Illness This is Dr. 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 He has associated chest discomfort during these episodes So far we have not had documentation of SVT but he complains of a rapid hear tbeat. In 2018 he had been referred for evaluation for rapid heartbeat and he had evidence of dual AV kenn physiology at that time but without induction of SVT. Therefore no ablation was performed in 2018 He does not describe any shortness of breath with complaints of chest discomfort during these episodes. Associated with palpitations Denies any fever chills cough expectoration recently He has obstructive sleep apnea has been prescribed CPAP mask LV function on 2D echo was normal ROS: No fever chills or rigors, no cough, phlegm or expectoration, no nausea, vomiting or diarrhea, no hematuria, dysuria, no musculoskeletal complaints, no strokes or seizures, no skin lesions. EXAMINATION: Afebrile pulse rate in the 70s blood pressure 167/88 mmHg Heart sounds S1-S2 normal Breath sounds are clear No JVD No murmurs no gallop no rub No lower extremity edema REVIEW OF LABS, ECG & MEDICAL DATA Normal white 163,000 count, platelet count 263,000 Hemoglobin 16, Normal electrolytes normal BUN and creatinine Physical Exam Vitals: Vital Signs Temp Pulse Resp BP Pulse Ox 05/12/24 09:07 98 F 75 16 167/88 98 Intake and Output 05/11/24 05/12/24 05/12/24 22:59 06:59 14:59 Intake Total 950 Output Total 150 Balance 800 Intake: IV 950 Output: Urine 150 Other: Weight 96.7 kg Past Medical History Past Medical History: GERD/Reflux, Hypertension, Supraventricular Tachycardia (SVT) Additional Past Medical History / Comment(s): See Dr Lynch's H&P,Hx Colitis and headaches,SVT,vertigo History of Any Multi-Drug Resistant Organisms: None Reported Past Surgical History: No Surgical Hx Reported Additional Past Surgical History / Comment(s): colonoscopy,EP study, Past Anesthesia/Blood Transfusion Reactions: No Reported Reaction, Motion Sickness Additional Past Anesthesia/Blood Transfusion Reaction / Comment(s): never received blood Smoking Status: Former smoker - Past Family History Mother Family Medical History: Diabetes Mellitus, Fibromyalgia Additional Family Medical History / Comment(s): "heart problems", Father Family Medical History: Cancer, Pneumonia Additional Family Medical History / Comment(s): home o2,prostate CA Physical Examination Vital Signs Temp Pulse Resp BP Pulse Ox 05/12/24 09:07 98 F 75 16 167/88 98 Intake and Output 05/11/24 05/12/24 05/12/24 22:59 06:59 14:59 Intake Total 950 Output Total 150 Balance 800 Intake: IV 950 Output: Urine 150 Other: Weight 96.7 kg Results 05/12/24 08:55 05/12/24 08:55 CBC 05/12/24 Range/Units 08:55 WBC 6.8 (3.8-10.6) k/uL RBC 5.75 (4.30-5.90) m/uL Hgb 16.0 (13.0-17.5) gm/dL Hct 49.0 (39.0-53.0) % Plt Count 163 (150-450) k/uL Comprehensive Metabolic Panel 05/12/24 Range/Units 08:55 Sodium 138 (137-145) mmol/L Potassium 4.0 (3.5-5.1) mmol/L Chloride 104 (98-107) mmol/L Carbon Dioxide 31 H (22-30) mmol/L BUN 17 (9-20) mg/dL Creatinine 1.02 (0.66-1.25) mg/dL Glucose 92 (74-99) mg/dL Calcium 8.9 (8.4-10.2) mg/dL Current Medications Generic Name Dose Route Start Last Admin Trade Name Freq PRN Reason Stop Dose Admin Sodium Chloride 1,000 mls @ 20 mls/hr 05/12/24 05:59 Saline 0.9% IV 06/11/24 05:58 .Q24H TRACY Lactated Ringer's 1,000 mls @ 20 mls/hr 05/12/24 05:59 Lactated Ringers IV 06/11/24 05:58 .Q24H TRACY Intake and Output 05/11/24 05/12/24 05/12/24 22:59 06:59 14:59 Intake Total 950 Output Total 150 Balance 800 Intake: IV 950 Output: Urine 150 Other: Weight 96.7 kg Patient Weight 05/13/24 06:59 Weight 96.7 kg 05/12/24 08:55 05/12/24 08:55
--- NOTE | 2024-05-12 14:03 | P.EPPROC ---
- EP Procedure Note Electrophysiology Procedure Note: Diagnosis Recurrent palpitations associated presyncope History of dual AV sharlene physiology documented in 2018 at EP study. No ablation performed at that time Final diagnosis High right atrial tachycardia from the septum, status post successful ablation of the SVC area and upper intra-atrial septum Successful RF ablation at the site. Noncapture documented with the sites with high-output pacing Details Patient was brought to the EP lab in a fasting state. Written informed consent was obtained prior to the procedure. Venous sheaths were placed in the right left femoral veins and via these, diagnostic catheters were positioned in the high right atrium His bundle area right ventricle and coronary sinus. The baseline measurements were as follows and were normal sinus cycle length 822 ms, MN interval 159 ms, QRS 97 ms and QT interval 369 ms AH interval 69 ms and HV interval 39 ms VA Wenckebach block 480 ms Sharlene response to His bundle pacing AV node Wenckebach block 300 ms. No delta waves noted Antegrade slow pathway conduction noted a pacing cycle length 350 ms the baseline state Normal sinus node function with sinus node recovery times at 1248, 1252 and 1110 ms. Corresponding corrected sinus node recovery times and normal Atrial stimulation was performed from the high right atrium and the coronary sinus. Burst stimulation was performed, atrial extra stimulation up to double and triple extrastimuli performed Ventricle extrastimulation was performed No evidence for AV sharlene reentry Thereafter bursts of atrial tachycardia induced from the high right atrium. Mapping and ablation catheter was placed. These were mapped to the septal aspect of the upper right atrium/pace of SVC in sinus rhythm fractionated electrograms were noted in this area. The area fractionation was demarcated. Electroanatomic mapping was performed in sinus rhythm. The sinus node was identified and marked. Phrenic nerve was located with pacing maneuvers and marked. These were more lateral to this ablation site RF ablation was performed at the base of the SVC and the upper intra-atrial septum in the zone of atrial arrhythmias and areas of atrial transfer tech fractionation in sinus rhythm. Successful RF ablation was performed at the sites with 25-30 W of power used with good contact force. Noncapture was demonstrated. No further SVT was inducible Thereafter a detailed EP study is once again performed on high-dose Isopril. There was no evidence for AV sharlene reentry No evidence for inducible atrial tachycardia IV metoprolol was given and an EP study was performed. No SVT was induced IV adenosine 3 mg was injected rapidly and pacing was performed from the coronary sinus. No SVT could be induced Patient Toller the procedure well without any acute complications. Sheath were removed and Vascade closure device we used 2 seal all venous punctures.
[2024-05-12] MEDS: SODIUM CHLORIDE 0.9% 1,000 ML IV SCH (15:17)
[2024-05-12] MEDS: LACTATED RINGERS 1,000 ML IV SCH (15:17)
[2024-05-12 15:42] VITALS: RESP 16
[2024-05-12] MEDS ORDERED: ACETAMINOPHEN TAB 325 MG TAB PO PRN (17:05)
[2024-05-12] MEDS: ACETAMINOPHEN IV (For NPO) 1,000 MG in EMPTY BAG 1 BAG IVPB ONE (18:04)
[2024-05-12] MEDS: ESCITALOPRAM 10 MG TAB PO SCH (20:16)
[2024-05-12] MEDS: lisinopriL 20 MG TAB PO SCH (20:16)
[2024-05-13 03:26] VITALS: PULSE 68
[2024-05-13] MEDS: PANTOPRAZOLE 40 MG TABLET PO SCH (06:16)
--- NOTE | 2024-05-13 08:13 | P.DS ---
Providers Attending physician: Domingo Lynch Primary care physician: [facility] Course: Patient is doing well. No chest discomfort dizziness lightheadedness or palpitations. His groins of healed well His EKG is normal today Heart sounds are normal Breath sounds are clear Blood pressure still elevated on lisinopril 20 mg p.o. daily Impression Diagnosis EP study which revealed dual AV kenn physiology but without any inducible AV kenn reentry Inducible right atrial tachycardia status post ablation of the RA septum and base of SVC Hypertension, on lisinopril 20 mg p.o. daily Obstructive sleep apnea Plan patient may go home today Continue with CPAP mask Follow-up monitor in about 6 to to 8 weeks Watch blood pressure to see if we need to maximize lisinopril any further Plan - Discharge Summary Discharge Rx Participant: No New Discharge Prescriptions: Continue Escitalopram [Lexapro] 10 mg PO HS lisinopriL [Zestril] 20 mg PO HS Omeprazole [PriLOSEC] 40 mg PO AC-BRKFST #90 cap Discharge Medication List Escitalopram [Lexapro] 10 mg PO HS 04/15/20 [History] lisinopriL [Zestril] 20 mg PO HS 04/15/20 [History] Omeprazole [PriLOSEC] 40 mg PO AC-BRKFST #90 cap 05/07/23 [Rx] Follow up Appointment(s)/Referral(s): Domingo Lynch MD [STAFF PHYSICIAN] - 1 Week Activity/Diet/Wound Care/Special Instructions: Post EP study - Ablation instructions 1. Keep access sites dry for 2 days. 2. No heavy lifting or straining for 2 days. 3. Avoid bending the hips repeatedly for 2 days. 4. You may go up and down stairs slowly 5. If you have had an ablation for atrial fibrillation or atrial flutter and are on a blood thinner, do not stop the blood thinner even temporarily for 3 months post ablation Call if the following is noted 1. Bleeding, increasing swelling or pain at the access sites. 2. Increasing chest discomfort, especially upon taking a deep breath. 3. Increasing shortness of breath, at rest or with exertion. 4. Undue cough / phlegm 5. Difficulty or pain while swallowing. 6. Pain or change in color in the extremities. 7. Fever, chills, rigors. 8. Increasing headache or neurologic symptoms. 9. Dizziness, fainting, palpitations For patients who have undergone an A-fib ablation /atrial flutter ablation Strict instruction; do NOT stop anticoagulation (Eliquis/Xarelto/Pradaxa) for the next 2 months temporarily, for any elective, nonurgent surgery. This increases the risk of stroke, post A-fib ablation
[2024-05-13 08:52] VITALS: BP 127/77; TEMP 98.5
== END 2024-05-13 10:55 | disposition home or self-care (01) ==
LOC: CATHEP 08:39 → 6NMEDSUR 13:19 → CATHEP 05-13 10:55
PROVIDERS: ATTEND Internal Medicine Clinical Cardiac Electrophysiology
DX: I47.10 Supraventricular tachycardia, unspecified (principal); I44.1 Atrioventricular block, second degree; R00.2 Palpitations; R55 Syncope and collapse; R51.9 Headache, unspecified; G47.33 Obstructive sleep apnea (adult) (pediatric); I10 Essential (primary) hypertension; H81.4 Vertigo of central origin; F32.A Depression, unspecified; F41.9 Anxiety disorder, unspecified; K21.9 Gastro-esophageal reflux disease without esophagitis; Z83.3 Family history of diabetes mellitus; Z99.89 Dependence on other enabling machines and devices; Z87.891 Personal history of nicotine dependence; Z98.890 Other specified postprocedural states; Z79.899 Other long term (current) drug therapy
CPT/HCPCS: 93623; 93653; 86900; 86901; 80048; 85025; 86850; J2250; J2003; J3010; J1644; J0131

== ENCOUNTER 2024-06-19 13:47 | Emergency (ER) | payer OTHER ==
[2024-06-19 13:52] VITALS: RESP 18
--- NOTE | 2024-06-19 14:10 | ED ---
General Adult HPI - General Chief complaint: Arrhythmia/Palpitations Stated complaint: heart rate of 250 Time Seen by Provider: 06/19/24 14:00 Source: patient, RN notes reviewed, old records reviewed Mode of arrival: ambulatory Limitations: no limitations - History of Present Illness Initial comments: This is a 54-year-old male who [facility] Patient was there and was doing a stress test when his heart rate went up into the 250-280 range. Patient did not have any chest pain at that time they did give him metoprolol and converted him to a normal sinus rhythm but he did have some slight changes in EKG so they want him to come to the emergency department to get blood work. Cardiology wanted the patient to have baseline blood work and if was normal the patient could be sent home. Patient denies any chest pain difficulty breathing shortness of breath patient denies any recent fever chills states he has a dry cough occasionally. Patient denies any diabetes hypertension high cholesterol or smoking history. - Related Data Home Medications Medication Instructions Recorded Confirmed Escitalopram [Lexapro] 10 mg PO HS 04/15/20 05/06/24 lisinopriL [Zestril] 20 mg PO HS 04/15/20 05/06/24 Previous Rx's Medication Instructions Recorded Omeprazole [PriLOSEC] 40 mg PO -BRKFST #90 cap 05/07/23 Allergies Allergy/AdvReac Type Severity Reaction Status Date / Time No Known Allergies Allergy Verified 06/19/24 13:48 Review of Systems ROS Statement: Those systems with pertinent positive or pertinent negative responses have been documented in the HPI. ROS Other: All systems not noted in ROS Statement are negative. Past Medical History Past Medical History: GERD/Reflux, Hypertension, Supraventricular Tachycardia (SVT) Additional Past Medical History / Comment(s): See Dr Lynch's H&P,Hx Colitis and headaches,SVT,vertigo History of Any Multi-Drug Resistant Organisms: None Reported Past Surgical History: No Surgical Hx Reported Additional Past Surgical History / Comment(s): colonoscopy,EP study, Past Anesthesia/Blood Transfusion Reactions: No Reported Reaction, Motion Sickness Additional Past Anesthesia/Blood Transfusion Reaction / Comment(s): never received blood Past Psychological History: Anxiety, Depression Smoking Status: Former smoker Past Alcohol Use History: Occasional Past Drug Use History: None Reported - Past Family History Mother Family Medical History: Diabetes Mellitus, Fibromyalgia Additional Family Medical History / Comment(s): "heart problems", Father Family Medical History: Cancer, Pneumonia Additional Family Medical History / Comment(s): home o2,prostate [place] General Exam - General Exam Comments Initial Comments: GENERAL: Patient is well-developed and well-nourished. Patient is nontoxic and well- hydrated and is in no acute distress. ENT: Neck is soft and supple. No significant lymphadenopathy is noted. Oropharynx is clear. Moist mucous membranes. Neck has full range of motion without eliciting any pain. EYES: The sclera were anicteric and conjunctiva were pink and moist. Extraocular movements were intact and pupils were equal round and reactive to light. Eyelids were unremarkable. PULMONARY: Unlabored respirations. Good breath sounds bilaterally. No audible rales rhonchi or wheezing was noted. CARDIOVASCULAR: There is a regular rate and rhythm without any murmurs gallops or rubs. ABDOMEN: Soft and nontender with normal bowel sounds. SKIN: Skin is clear with no lesions or rashes and otherwise unremarkable. NEUROLOGIC: Patient is alert and oriented x3. Cranial nerves II through XII are grossly intact. Motor and sensory are also intact. Normal speech, volume and content. Symmetrical smile. MUSCULOSKELETAL: Normal extremities with adequate strength and full range of motion. No lower extremity swelling or edema. No calf tenderness. LYMPHATICS: No significant lymphadenopathy is noted PSYCHIATRIC: Normal psychiatric evaluation. Limitations: no limitations Course Vital Signs 06/19/24 06/19/24 13:48 13:59 Temperature 98.2 F Pulse Rate 102 H 96 Pulse Rate [ 96 Research Professor Of Biostatistics ] Respiratory 18 18 Rate Blood Pressure 161/82 137/77 O2 Sat by Pulse 97 97 Oximetry Medical Decision Making - Medical Decision Making EKG is interpreted by myself. EKG shows sinus rhythm at 96 bpm MA was 173 QRS is 89 QT interval 325 QTc is 378. Patient's EKG shows no ST segment elevation or depression. Was pt. sent in by a medical professional or institution (, PA, CONSUMER LOAN MANAGER, urgent ca re, hospital, or care home...) When possible be specific @ -No Did you speak to anyone other than the patient for history (EMS, parent, family, police, friend...)? What history was obtained from this source @ -No Did you review nursing and triage notes (agree or disagree)? Why? @ -I reviewed and agree with nursing and triage notes Were old charts reviewed (outside hosp., previous admission, EMS record, old EKG, old radiological studies, urgent care reports/EKG's, care home records)? Report findings @ -No old charts were reviewed Differential Diagnosis? @ -Differential Palpitations Ventricular arrhythmias, atrial arrhythmias, myocardial infarction, anemia, thyrotoxicosis, electrolyte imbalance, hypokalemia, pulmonary embolism, pulmonary disease, drugs, alcohol, anxiety, stress.... This is not meant to be an all-inclusive list. EKG interpreted by me (3pts min.). @ -As above X-rays interpreted by me (1pt min.). @ -Chest x-ray shows no acute abnormality CT interpreted by me (1pt min.). @ -None done U/S interpreted by me (1pt. min.). @ -None done What testing was considered but not performed or refused? (CT, X-rays, U/S, labs)? Why? @ -None What meds were considered but not given or refused? Why? @ -None Did you discuss the management of the patient with other professionals (professionals i.e. , PA, CONSUMER LOAN MANAGER, lab, RT, psych nurse, social worker assistant, valve steamer, teacher, fisheries enforcement officer, watch caser)? Give summary @ -I spoke with [facility] they stated the patient could go home after all lab work was normal and the patient was acting normal EKG was normal. Was smoking cessation discussed for >3mins.? @ -No Was critical care preformed (if so, how long)? @ -No Were there social determinants of health that impacted care today? How? (Homelessness, low income, unemployed, alcoholism, drug addiction, transportation, low edu. Level, literacy, decrease access to med. care, nursing home, rehab)? @ -No Was there de-escalation of care discussed even if they declined (Discuss DNR or withdrawal of care, Hospice)? DNR status @ -No What co-morbidities impacted this encounter? (DM, HTN, Smoking, COPD, CAD, Cancer, CVA, ARF, Chemo, Hep., AIDS, mental health diagnosis, sleep apnea, morbid obesity)? @ -None Was patient admitted / discharged? Hospital course, mention meds given and route, prescriptions, significant lab abnormalities, going to OR and other pertinent info. @ -Patient was asymptomatic throughout the ED stay patient's lab work and x-ray showed no acute abnormality patient be discharged home Undiagnosed new problem with uncertain prognosis? @ -No Drug Therapy requiring intensive monitoring for toxicity (Heparin, Nitro, Insulin, Cardizem)? @ -No Were any procedures done? @ -No Diagnosis/symptom? @ -SVT Acute, or Chronic, or Acute on Chronic? @ -Acute Uncomplicated (without systemic symptoms) or Complicated (systemic symptoms)? @ -Complicated Side effects of treatment? @ -No Exacerbation, Progression, or Severe Exacerbation? @ -No Poses a threat to life or bodily function? How? (Chest pain, [place], [place], pneumonia, PE, COPD, DKA, ARF, appy, cholecystitis, CVA, Diverticulitis, Homicidal, Suicidal, threat to staff... and all critical care pts) @ -No - Lab Data Result diagrams: 06/19/24 14:07 06/19/24 14:07 Lab Results 06/19/24 06/19/24 06/19/24 Range/Units 14:07 14:07 14:07 WBC 5.4 (3.8-10.6) k/uL RBC 5.64 (4.30-5.90) m/uL Hgb 15.8 (13.0-17.5) gm/dL Hct 47.7 (39.0-53.0) % MCV 84.6 (80.0-100.0) fL MCH 28.0 (25.0-35.0) pg MCHC 33.1 (31.0-37.0) g/dL RDW 13.0 (11.5-15.5) % Plt Count 161 (150-450) k/uL MPV 9.0 Neutrophils % 59 % Lymphocytes % 30 % Monocytes % 6 % Eosinophils % 3 % Basophils % 1 % Neutrophils # 3.2 (1.3-7.7) k/uL Lymphocytes # 1.6 (1.0-4.8) k/uL Monocytes # 0.3 (0-1.0) k/uL Eosinophils # 0.1 (0-0.7) k/uL Basophils # 0.0 (0-0.2) k/uL PT 10.4 (10.0-12.5) sec INR 0.9 (<1.2) APTT 31.1 H (22.0-30.0) sec Sodium 139 (137-145) mmol/L Potassium 4.3 (3.5-5.1) mmol/L Chloride 105 (98-107) mmol/L Carbon Dioxide 26 (22-30) mmol/L Anion Gap 8 mmol/L BUN 16 (9-20) mg/dL Creatinine 1.04 (0.66-1.25) mg/dL Est GFR (CKD-EPI)AfAm >90 (>60 ml/min/1.73 sqM) Est GFR (CKD-EPI)NonAf 83 (>60 ml/min/1.73 sqM) Glucose 91 (74-99) mg/dL Calcium 8.6 (8.4-10.2) mg/dL Magnesium 2.3 (1.6-2.3) mg/dL Total Bilirubin 0.3 (0.2-1.3) mg/dL AST 24 (17-59) U/L ALT 22 (4-49) U/L Alkaline Phosphatase 70 (38-126) U/L Troponin I (0.000-0.034) ng/mL Total Protein 7.0 (6.3-8.2) g/dL Albumin 4.3 (3.5-5.0) g/dL 06/19/24 Range/Units 14:07 WBC (3.8-10.6) k/uL RBC (4.30-5.90) m/uL Hgb (13.0-17.5) gm/dL Hct (39.0-53.0) % MCV (80.0-100.0) fL MCH (25.0-35.0) pg MCHC (31.0-37.0) g/dL RDW (11.5-15.5) % Plt Count (150-450) k/uL MPV Neutrophils % % Lymphocytes % % Monocytes % % Eosinophils % % Basophils % % Neutrophils # (1.3-7.7) k/uL Lymphocytes # (1.0-4.8) k/uL Monocytes # (0-1.0) k/uL Eosinophils # (0-0.7) k/uL Basophils # (0-0.2) k/uL PT (10.0-12.5) sec INR (<1.2) APTT (22.0-30.0) sec Sodium (137-145) mmol/L Potassium (3.5-5.1) mmol/L Chloride (98-107) mmol/L Carbon Dioxide (22-30) mmol/L Anion Gap mmol/L BUN (9-20) mg/dL Creatinine (0.66-1.25) mg/dL Est GFR (CKD-EPI)AfAm (>60 ml/min/1.73 sqM) Est GFR (CKD-EPI)NonAf (>60 ml/min/1.73 sqM) Glucose (74-99) mg/dL Calcium (8.4-10.2) mg/dL Magnesium (1.6-2.3) mg/dL Total Bilirubin (0.2-1.3) mg/dL AST (17-59) U/L ALT (4-49) U/L Alkaline Phosphatase (38-126) U/L Troponin I <0.012 (0.000-0.034) ng/mL Total Protein (6.3-8.2) g/dL Albumin (3.5-5.0) g/dL Disposition Clinical Impression: SVT (supraventricular tachycardia) Disposition: HOME SELF-CARE Condition: Good Instructions (If sedation given, give patient instructions): Supraventricular Tachycardia (ED) Is patient prescribed a controlled substance at d/c from ED?: No Referrals: Belkis Mares DO [Primary Care Provider] - 1-2 days Time of Disposition: 15:09
[2024-06-19 14:23] LABS: Basophils % (A) 1 %; Eosinophils # (A) 0.1 k/uL (0-0.7); Eosinophils % (A) 3 %; HCT 47.7 % (39.0-53.0); HGB 15.8 gm/dL (13.0-17.5); Lymphocytes # (A) 1.6 k/uL (1.0-4.8); Lymphocytes % (A) 30 %; MCHC 33.1 g/dL (31.0-37.0); MCV 84.6 fL (80.0-100.0); Monocytes # (A) 0.3 k/uL (0-1.0); Monocytes % (A) 6 %; Neutrophils # (A) 3.2 k/uL (1.3-7.7); Neutrophils % (A) 59 %; Platelet Count 161 k/uL (150-450); RBC 5.64 m/uL (4.30-5.90); WBC 5.4 k/uL (3.8-10.6)
--- NOTE | 2024-06-19 14:40 | XR ---
EXAMINATION TYPE: XR chest 2V DATE OF EXAM: 06/19/2024 2:27 PM COMPARISON: Chest x-ray January 27, 2024 CLINICAL INDICATION: Male, 54 years old with history of dysrhythmia, TECHNIQUE: Frontal and lateral views of the chest are obtained. FINDINGS: There is no focal air space opacity, pleural effusion, or pneumothorax seen. The cardiac silhouette size is within normal limits. The osseous structures are intact. Overlying EKG leads are redemonstrated. IMPRESSION: No acute process. [facility], , 06/19/2024 2:37 PM
[2024-06-19 14:41] LABS: ALT 22 U/L (4-49); AST 24 U/L (17-59); African American GFR (CKD) >90 (>60 ml/min/1.73 sqM); Albumin 4.3 g/dL (3.5-5.0); Alkaline Phosphatase 70 U/L (38-126); Anion Gap 8 mmol/L; Blood Urea Nitrogen 16 mg/dL (9-20); Calcium 8.6 mg/dL (8.4-10.2); Carbon Dioxide 26 mmol/L (22-30); Chloride 105 mmol/L (98-107); Glucose 91 mg/dL (74-99); Magnesium 2.3 mg/dL (1.6-2.3); Non-African American GFR(CKD) 83 (>60 ml/min/1.73 sqM); Potassium 4.3 mmol/L (3.5-5.1); Sodium 139 mmol/L (137-145); Total Bilirubin 0.3 mg/dL (0.2-1.3)
[2024-06-19 14:42] LABS: INR 0.9 (<1.2); Partial Thromboplastin Time 31.1 sec (22.0-30.0); Prothrombin Time 10.4 sec (10.0-12.5)
[2024-06-19 15:28] VITALS: BP 138/90; PULSE 90; TEMP 97.9
== END 2024-06-19 15:28 | disposition home or self-care (01) ==
LOC: EC 13:47
DX: I47.10 Supraventricular tachycardia, unspecified (principal); Z87.891 Personal history of nicotine dependence
CPT/HCPCS: 36415; 71046; 80053; 83735; 84484; 85025; 85610; 85730; 93005; 99285

== ENCOUNTER 2024-06-25 10:11 | Day surgery (SDC) | payer OTHER ==
[2024-06-25 10:39] VITALS: TEMP 97.8
[2024-06-25] MEDS ORDERED: ALPRAZolam 0.5 MG TAB PO PRN (10:49)
[2024-06-25] MEDS ORDERED: ASPIRIN 325 MG TAB PO STA (10:49)
[2024-06-25] MEDS ORDERED: ALPRAZolam 0.25 MG TAB PO PRN (10:49)
[2024-06-25] MEDS ORDERED: NITROGLYCERIN SL TABS 0.4 MG TAB SUBLINGUAL PRN (10:49)
[2024-06-25] MEDS: HEPARIN SODIUM,PORCINE 10,000 UNIT in SODIUM CHLORIDE 0.9% 1,000 ML IRRIGATION PRN (11:09)
[2024-06-25] MEDS: SODIUM CHLORIDE 0.9% 1,000 ML in EMPTY BAG 1 BAG IV SCH (11:09)
[2024-06-25] MEDS: HEPARIN SODIUM,PORCINE (1 ML) 2,500 UNIT in SODIUM CHLORIDE 0.9% 250 ML IRRIGATION PRN (11:09)
[2024-06-25] MEDS: MIDAZOLAM 2 MG/2 ML VIAL IVP ONE (11:33)
[2024-06-25] MEDS: LIDOCAINE 1% INJ 10MG/ML (20 ML MDV) SQ ONE (11:36)
[2024-06-25] MEDS: VERAPAMIL SYRINGE (5 MG/10 ML) INTRAARTER ONE (11:38)
[2024-06-25] MEDS: HEPARIN SODIUM 1,000 UN/ML (10ML VL) IVP ONE (11:40)
[2024-06-25] MEDS: IOPAMIDOL-370 200ML BTL INJ ONE (11:57)
[2024-06-25] MEDS ORDERED: SODIUM CHLORIDE 0.9% 1,000 ML IV SCH (11:57)
--- NOTE | 2024-06-25 12:24 | P.CARDCATH ---
Date of Procedure: 06/25/24 Description of Procedure: History: Patient was referred for cardiac catheterization to evaluate for CAD. This patient has history of obstructive sleep apnea long pauses. I have advised him to be compliant with the CPAP which she has finally done. However he was also referred for electrophysiology and underwent a EP procedure high right atrial tachycardia ablation and also SVC area ablation upper interatrial septum area performed by Dr. Lynch. Postprocedure he has been doing well. I performed a stress test in the office it was a stress echo while he was on the treadmill he went into a ventricular tachycardia at almost 200 bpm with symptoms of lightheadedness and near syncope and spontaneously came off to sinus rhythm. He was placed on a beta-alfredito and I recommended coronary angiography. Risks benefits options rationale were explained. He probably has exercise-induced ventricular tachycardia and obstructive sleep apnea Procedure Details: The risks, benefits, complications, treatment options, and expected outcomes were discussed with the patient. The patient and/or family concurred with the proposed plan, giving informed consent. Patient was brought to the energy systems laboratory director after IV hydration was begun and oral premedication was given. Patient was further sedated with midazolam. Patient was prepped and draped in the usual manner. Under strict aseptic precautions and local anesthesia a 6 Kiswahili introducer was placed in the right radial artery. Using a JL 3/5 and a JR 4/0 catheters I performed coronary angiography and the same JR catheter was used to check LV pressures and LV gram was not performed. After the procedure was completed the sheaths and catheters were all removed. H emostasis was achieved with TR band. Saturation in the fingers of the right hand was about 94%. Moderate conscious sedation time was 13 minutes. Patient's oxygen saturation hemodynamics and EKG were monitored closely. . Findings: Hemodynamics: The left ventricle end-diastolic pressure was 12 to 13 mmHg without any gradient across aortic valve Left Main: Short patent vessel no disease bifurcates into LAD and circumflex LAD: Good caliber good distribution vessel gives off septal and diagonal branches no significant disease CIRC: Dominant vessel large in caliber and distribution gives off 2 obtuse marginal branches minor irregularities distally bifurcates into PDA and PLV no significant disease RCA: Nondominant vessel gives off a acute marginal branch and a conus branch no significant disease LV: Not performed Closure Device: TR band Complications: None Estimated Blood Loss: Minimal Impression: This patient has a Left dominant system normal filling pressures no significant gradient no significant CAD Pre Procedure Diagnosis: Exercise-induced ventricular tachycardia, CAD Final Post Procedure Diagnosis: Exercise-induced ventricular tachycardia no obstructive CAD Recommendation: Continue beta-alfredito metoprolol tartrate 25 mg twice daily we will do an a 2-week event monitor echocardiogram today will be discharged later on today and I will see him in the office in 1 week. Discussed my thoughts in detail with the patient and and brother. Advised to be compliant with CPAP Complications: None; patient tolerated the procedure well. Disposition: Pacu - hemodynamically stable. Condition: Stable Discharge Disposition: Discharge patient home later on today.
--- NOTE | 2024-06-25 18:27 | CA ---
Transthoracic Echo Report Name: Kleber Frank Age: 54 Gender: M : 1970 Exam Date: 06/25/2024 14:14 Exam Location: [facility] Ht (in): 69 Wt (lb): 217 Ordering Physician: Leonel Sánchez MD ([id number]) Attending/Referring Phys: Commission Sales Associate Zuri Joe, IRENE Procedure CPT: Indications: full echo,evaluate LV function Cardiac Hx: Technical Quality: Fair Contrast 1: Total Dose (mL): Contrast 2: Total Dose (mL): MEASUREMENTS (Male / Female) Normal Values 2D ECHO LV Diastolic Diameter PLAX 5.1 cm 4.2 - 5.9 / 3.9 - 5.3 cm LV Systolic Diameter PLAX 3.3 cm IVS Diastolic Thickness 1.5 cm 0.6 - 1.0 / 0.6 - 0.9 cm LVPW Diastolic Thickness 1.4 cm 0.6 - 1.0 / 0.6 - 0.9 cm LV Relative Wall Thickness 0.6 RV Internal Dim ED PLAX 2.0 cm LA Systolic Diameter LX 4.3 cm 3.0 - 4.0 / 2.7 - 3.8 cm LV Diastolic Volume MOD BP 74.0 cm??? 67 - 155 / 56 - 104 cm??? LV Systolic Volume MOD BP 22.6 cm??? 22 - 58 / 19 - 49 cm??? LV Ejection Fraction MOD BP 69.5 % >= 55 % LV Cardiac Index MOD BP 1692.7 cm???/min???m??? LV Diastolic Volume MOD 4C 67.9 cm??? LV Systolic Volume MOD 4C 22.3 cm??? LV Ejection Fraction MOD 4C 67.2 % LV Cardiac Index MOD 4C 1500.4 cm???/min???m??? LV Diastolic Length 4C 8.2 cm LV Systolic Length 4C 6.8 cm LV Diastolic Volume MOD 2C 77.4 cm??? LV Systolic Volume MOD 2C 21.8 cm??? LV Ejection Fraction MOD 2C 71.9 % LV Cardiac Index MOD 2C 1829.2 cm???/min???m??? LV Diastolic Length 2C 7.8 cm LV Systolic Length 2C 6.4 cm LA Volume 100.3 cm??? 18 - 58 / 22 - 52 cm??? LA Volume Index 45.2 cm???/m??? 16 - 28 cm???/m??? M-MODE Aortic Root Diameter MM 3.6 cm LA Systolic Diameter MM 4.0 cm LA Ao Ratio MM 1.1 AV Cusp Separation MM 2.3 cm DOPPLER MV Area PHT 2.9 cm??? Mitral E Point Velocity 75.3 cm/s Mitral A Point Velocity 54.3 cm/s Mitral E to A Ratio 1.4 MV Deceleration Time 262.9 ms TR Peak Velocity 180.2 cm/s TR Peak Gradient 13.0 mmHg Right Ventricular Systolic Press 18.0 mmHg FINDINGS Left Ventricle Left ventricular ejection fraction is estimated at 55-60 %. Normal left ventricular systolic function with no obvious regional wall motion abnormalities. Left ventricular cavity size normal. Moderately increased left ventricular wall thickness. Right Ventricle Normal right ventricular size and function. Right ventricular systolic pressure within normal limits. Right Atrium Mild right atrial dilatation. Left Atrium Mildly increased left atrial diameter. Mildly increased left atrial area. Mitral Valve Structurally normal mitral valve. Mild mitral regurgitation. No mitral stenosis. Aortic Valve Trileaflet aortic valve. No aortic valve stenosis. Tricuspid Valve Structurally normal tricuspid valve. Mild tricuspid regurgitation. No tricuspid stenosis. Pulmonic Valve Structurally normal pulmonic valve. No pulmonic regurgitation. No pulmonic stenosis. Pericardium No pericardial or pleural effusion. Aorta Normal size aortic root and proximal ascending aorta. CONCLUSIONS 1. Normal left ventricular size and systolic function 2. Mild mitral and tricuspid regurgitation Previewed by: Dr. Ita Domínguez MD (Electronically Signed) Final Date: 25 June 2024 18:26
[2024-06-25 18:33] VITALS: BP 152/77; PULSE 71; RESP 6
== END 2024-06-25 16:59 | disposition home or self-care (01) ==
LOC: CATHCVL 10:11
PROVIDERS: ATTEND Internal Medicine Interventional Cardiology
DX: I25.10 Atherosclerotic heart disease of native coronary artery without angina pectoris (principal); I08.1 Rheumatic disorders of both mitral and tricuspid valves; I47.19 Other supraventricular tachycardia; I10 Essential (primary) hypertension; F17.210 Nicotine dependence, cigarettes, uncomplicated; G47.33 Obstructive sleep apnea (adult) (pediatric); Z79.899 Other long term (current) drug therapy
CPT/HCPCS: 93306; 93270; 93458; C1769; C1894; J2250; J1644 ×3; J2003; Q9967

== ENCOUNTER → 2024-07-09 | Outpatient (CLI) | payer OTHER ==
[2024-07-09 16:29] VITALS: BP 141/83; PULSE 86; RESP 16; TEMP 97.9
--- NOTE | 2024-07-09 18:31 | P.PROGSL ---
Subjective DATE: 07/09/2024 FOLLOW UP VISIT. Patient with obstructive sleep apnea hypopnea syndrome return to sleep center for follow-up visit. Information from previous visit have been reviewed. Patient is using PAP equipment every night for the whole night, getting PAP supplies in time. The patient does not have significant problems with the mask, PAP unit and humidification. [place] sleepiness scale is significantly increased to 16. Patient continued to feel significant sleepiness. I checked information from PAP unit. PAP unit pressure 6-13, average 9.6 cm H2O. Usage is 80% for more then 4 hours, average 4.25 hours per night. Leak is 5.5 l/m, which is in range. Apnea Hypopnea Index is 1, which is normal. MEDICATIONS have been reviewed, please see below. During physical exam: GENERAL: A pleasant patient without any distress. VITAL SIGNS: Please see below, weight is 221 lbs. HEENT: PERRLA, EOMI.low position of soft palate, Mallapati 3. NECK: Supple. No JVD. LUNGS: Clear to percussion and to auscultation. Good air exchange. No wheezing or rhonchi. HEART: S1, S2 regular. ABDOMEN: Soft and nontender.[] EXTREMITIES: No clubbing or cyanosis. 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 No focal deficit. Impressions: 1. Moderate obstructive sleep apnea-hypopnea syndrome, apnea hypopnea index 20.2. Patient demonstrated good compliance with treatment, benefiting from treatment. 2. Patient continued to have significant excessive daytime sleepiness. [place] Sleepiness Scale increased to 16. Differential diagnosis include hypersomnia and narcolepsy. 3. Mild obesity. 4. Hypertension. 5. Headaches. 6. Acid reflux. 7. History of cardiac arrhythmia which included episodes of ventricular tachycardia and cardiac pauses in the past. 8. History of headaches. Plan: 1. Continue using PAP equipment every night for the whole night. 2. Sleep hygiene with regular time in bed for at least 7.5-8 hours 3. Multiple sleep latency test after night on CPAP for objective ablation symptoms of excessive daytime sleepiness. 4. Advised patient to remove all remaining water from humidifier canister daily and make it dry after each usage. Refill canister with fresh distilled water before each usage. 5. Watching weight. 6. Precautions related to driving. No driving if feel any sleepiness. 7. I will maintain prescription for PAP supplies including mask, tube, filters. 8. Following plan after reading multiple sleep latency test. Thank you very much for allowing me to participate in the management of your patient. Sadiq Stanford MD, PhD, FAASM. Diplomat of [place] [employer], Sleep Medicine Board by [place] [employer] [facility] [place] cc: Belkis Mares DO Objective - Vital Signs Vital Signs: Vital Signs Temp 97.9 F 07/09/24 16:26 Pulse 86 07/09/24 16:26 Resp 16 07/09/24 16:26 BP 141/83 07/09/24 16:26 Pulse Ox 96 07/09/24 16:26 FiO2 Intake & Output 07/08/24 07/09/24 07/09/24 18:59 06:59 18:59 Weight 100.244 kg Home Medications: Home Medications Medication Instructions Recorded Confirmed Type Escitalopram [Lexapro] 10 mg PO HS 04/15/20 07/09/24 History lisinopriL [Zestril] 20 mg PO HS 04/15/20 07/09/24 History Omeprazole [PriLOSEC] 40 mg PO AC-BRKFST #90 cap 05/07/23 07/09/24 Rx Aspirin 81 mg PO ONCE 06/25/24 07/09/24 History Metoprolol Tartrate [Lopressor] 25 mg PO BID 06/25/24 07/09/24 History Metoprolol Succinate (ER) [Toprol 25 mg PO DAILY 07/09/24 07/09/24 History Xl]
== END ==
LOC: 3 N SLEEP 15:50
PROVIDERS: ATTEND Internal Medicine
DX: G47.33 Obstructive sleep apnea (adult) (pediatric) (principal); R40.0 Somnolence; E66.9 Obesity, unspecified; I10 Essential (primary) hypertension; R51.9 Headache, unspecified; K21.9 Gastro-esophageal reflux disease without esophagitis; Z86.79 Personal history of other diseases of the circulatory system
CPT/HCPCS: 99212

== ENCOUNTER 2024-08-16 19:37 | Outpatient (CLI) | payer OTHER ==
[2024-08-17 19:36] LABS: Urine Alcohol Negative (Negative); Urine Barbiturate Negative (Negative); Urine Cocaine Negative (Negative); Urine Methadone Negative (Negative); Urine Opiates Negative (Negative); Urine Phencyclidine Negative (Negative)
--- NOTE | 2024-08-20 18:12 | P.PCN ---
Description of Procedure: CPAP TITRATION AND MSLT REPORT PROCEDURE(S)/DATE(S): CPAP 08/16/2024, multiple sleep latency test in 08/17/2024 CLINICAL: Patient has been seen in the sleep center for evaluation of obstructive sleep apnea-hypopnea syndrome. Please see my consultation. Sleep study has been done for evaluation of patient breathing during the sleep. PROCEDURE: The standard montage for clinical polysomnography included the electroencephalogram, the electrooculogram, the mentalis surface electromyogra phy and Lead II cardiography. The respiratory battery consisted of measurements of nasal/buccal air flow, pressure transducer measurements from nose, thoracic and/or abdominal effort and intercostal surface electromyography. Video monitoring has been done to check for any parasomnia events. Nocturnal oxyhemoglobin saturations were obtained by finger oximetry. Step-cardoza titration with positive airway pressure was utilized to control the respiratory events, if necessary. RESULTS: During CPAP treatment sleep efficiency was decreased to 76.3%. Latency to sleep onset was prolonged to 39.0 min. Sleep architecture showed stage NI was short 3.7%, Delta sleep was absent 0%, REM sleep was borderline 19.0%. Patient was on CPAP with a range of the pressure 6-13. Respiratory channel showed 1 obstructive apneas, 0 mixed apneas, 0 central apneas, 1 hypopneas with lowest oxygen level 92%. Total apnea hypopnea index was 0.3. Heart rate was in the range between 67 and 80, average 74. EMG showed 0 periodic limb movements per hour. Multiple sleep latency test have been done on the following day consisted from 5 naps, patient fell asleep on 4 naps and did not fell asleep on last nap. 1 sleep onset REM have been documented during second nap. Mean sleep latency was 11.2 minutes counting 5 naps, and 9 minutes counting 4 naps . IMPRESSIONS: 1. Normal respiration on treatment with CPAP. 2. No significant periodic limb movements have been documented. 3. Multiple sleep latency test showed mild sleepiness, which did not confirm diagnosis of narcolepsy, but could be secondary to obstructive sleep apnea hypopnea syndrome. Please see other impressions from consultation PLAN: 1. I will see patient for follow-up visit to explain results of the test and recommendations. 2. Losing weight program. 3. Sleep hygiene with regular time in bed for at least 7-1/2 hours. 4. No driving if feeling sleepiness. 5. Patient should continue to use CPAP equipment every night for the whole night. 6. I will start patient on low-dose of modafinil to prevent excessive daytime sleepiness. Thank you very much for allowing me to participate in the management of your patient. Sincerely, Sadiq Stanford MD, PhD, FAASM. Diplomat of [place] [employer], Sleep Medicine Board by [place] [employer] Personnel [employer] [facility] [place] cc: Belkis Mares DO
== END 2024-08-17 16:20 | disposition home or self-care (01) ==
LOC: 3 N SLEEP 19:37
PROVIDERS: ATTEND Internal Medicine
DX: G47.33 Obstructive sleep apnea (adult) (pediatric) (principal); Z99.89 Dependence on other enabling machines and devices
CPT/HCPCS: 80306; 95805; 95811

== ENCOUNTER → 2024-08-20 | Outpatient (CLI) | payer OTHER ==
[2024-08-20 16:35] VITALS: BP 149/75; PULSE 102; RESP 16; TEMP 97.5
--- NOTE | 2024-08-20 18:23 | P.PROGSL ---
Subjective DATE: 08/20/2024 FOLLOW UP VISIT. Patient returned to sleep center for follow-up visit to discuss results of sleep studies and recommendations. Patient with obstructive sleep apnea hypopnea syndrome and significant excessive daytime. Sleep study on CPAP with following multiple sleep latency test. During night part of the sleep study on CPAP chevy loza had perfect . Apnea hypopnea index for the whole night was only 0.3 with lowest oxygen level 92%. Multiple sleep latency test consisted from 5 naps patient did not fell asleep on 1 nap. Mean sleep latency was 11.2 minutes counting 5 naps and 9 minutes counting first 4 naps. 1 sleep onset REM. Have been documented. Patient continued to use his CPAP equipment every night for the whole night at home. . [place] sleepiness scale is significantly increased to 19. MEDICATIONS:1. [] 2. [] 3. [] 4. [] 5. [] 6. [] 7. [] 8. [] During physical exam: GENERAL: A pleasant patient without any distress. VITAL SIGNS: Please see below, weight 221 pounds. HEENT: PERRLA, EOMI. NECK: Supple. No JVD. LUNGS: Clear to percussion and to auscultation. Good air exchange. No wheezing or rhonchi. HEART: S1, S2 regular. ABDOMEN: Soft and nontender. EXTREMITIES: No clubbing or cyanosis. URGENT CARE NURSE PRACTITIONER: Awake, alert, and oriented x3. No focal deficit. Impressions: 1. Moderate obstructive sleep apnea hypopnea syndrome with apnea hypopnea index 20.2, normal respiration on CPAP 2. Patient presents with symptoms of excessive daytime sleepiness. Multiple sleep latency test did not confirmed pathological sleepiness for diagnosis of narcolepsy, but showed mild sleepiness which could be secondary to obstructive sleep apnea hypopnea syndrome. 3. No significant periodic limb movements have been documented during the sleep study. 4. Hypertension. 5. Headaches. 6. Acid reflux. 7. History of cardiac arrhythmia with episodes of ventricular tachycardia and cardiac pauses in the past. 8. History of headaches. 9. Mild obesity. Plan: 1. Patient will continue treatment with CPAP every night for the whole night. 2. Sleep hygiene with regular time in bed for at least 8 hours. 3. I will start patient on treatment with modafinil, low doses 200 mg in the morning. 4. Precautions related to driving. No driving if feel any sleepiness. Patient is aware about civil and criminal liability for unsafe driving, promised to follow recommendations. 5. Follow up visit in 4 months or earlier if patient has any problems. Thank you very much for allowing me to participate in the management of your patient. Sadiq Stanford MD, PhD, FAASM. Diplomat of [place] [employer], Sleep Medicine Board by [place] [employer] [facility] [place] cc: Belkis Mares DO Objective - Vital Signs Vital Signs: Vital Signs Temp 97.5 F L 08/20/24 16:33 Pulse 102 H 08/20/24 16:33 Resp 16 08/20/24 16:33 BP 149/75 08/20/24 16:33 Pulse Ox 96 08/20/24 16:33 FiO2 Intake & Output 08/19/24 08/20/24 08/20/24 18:59 06:59 18:59 Weight 100.244 kg Home Medications: Home Medications Medication Instructions Recorded Confirmed Type Escitalopram [Lexapro] 10 mg PO HS 04/15/20 07/09/24 History lisinopriL [Zestril] 20 mg PO HS 04/15/20 07/09/24 History Omeprazole [PriLOSEC] 40 mg PO AC-BRKFST #90 cap 05/07/23 07/09/24 Rx Aspirin 81 mg PO ONCE 06/25/24 07/09/24 History Metoprolol Tartrate [Lopressor] 25 mg PO BID 06/25/24 07/09/24 History Metoprolol Succinate (ER) [Toprol 25 mg PO DAILY 07/09/24 07/09/24 History Xl]
== END ==
LOC: 3 N SLEEP 16:07
PROVIDERS: ATTEND Internal Medicine
DX: G47.33 Obstructive sleep apnea (adult) (pediatric) (principal); K21.9 Gastro-esophageal reflux disease without esophagitis; I10 Essential (primary) hypertension; E66.9 Obesity, unspecified; Z86.79 Personal history of other diseases of the circulatory system; Z99.89 Dependence on other enabling machines and devices
CPT/HCPCS: 99212

== ENCOUNTER 2024-08-27 08:50 | Day surgery (SDC) | payer OTHER ==
[2024-08-27] MEDS: SODIUM CHLORIDE 0.9% 1,000 ML IV SCH (10:06)
[2024-08-27] MEDS: IV FLUID CONTINUATION 1,000 ML IV ONE (10:11)
[2024-08-27 10:12] LABS: Basophils % (A) 1 %; Eosinophils # (A) 0.1 k/uL (0-0.7); Eosinophils % (A) 2 %; HCT 49.2 % (39.0-53.0); Lymphocytes # (A) 1.5 k/uL (1.0-4.8); Lymphocytes % (A) 29 %; MCH 27.1 pg (25.0-35.0); MCHC 32.5 g/dL (31.0-37.0); MCV 83.4 fL (80.0-100.0); Mean Platelet Volume 8.7; Monocytes # (A) 0.4 k/uL (0-1.0); Monocytes % (A) 7 %; Neutrophils # (A) 3.2 k/uL (1.3-7.7); Neutrophils % (A) 60 %; Platelet Count 149 k/uL (150-450); RBC 5.91 m/uL (4.30-5.90); RDW 12.5 % (11.5-15.5); WBC 5.3 k/uL (3.8-10.6)
[2024-08-27] MEDS ORDERED: ISOPROTERENOL 250 MCG/1.25 ML SYR IV ONE (10:38)
[2024-08-27] MEDS ORDERED: PROPOFOL 10 MG/ML 20 ML VIAL IV ONE (10:38)
[2024-08-27] MEDS ORDERED: GLYCOPYRROLATE 0.2 MG/ML 2 ML VIAL ONE (10:38)
[2024-08-27] MEDS ORDERED: FUROSEMIDE 10 MG/ML 2 ML VIAL ONE (10:38)
[2024-08-27] MEDS ORDERED: MIDAZOLAM 2 MG/2 ML VIAL ONE (10:38)
[2024-08-27] MEDS ORDERED: fentaNYL (PF) 50 MCG/ML 2 ML AMP ONE (10:38)
[2024-08-27] MEDS ORDERED: HEPARIN SODIUM,PORCINE 10,000 UNIT/ML 1 ML VIAL ONE (10:38)
[2024-08-27] MEDS: HEPARIN SODIUM,PORCINE 10,000 UNIT in SODIUM CHLORIDE 0.9% 1,000 ML IRRIGATION ONE (10:47)
[2024-08-27] MEDS: LIDOCAINE 2% URO-JET JELLY 5 ML KIT URETHRAL ONE (10:53)
[2024-08-27 10:55] LABS: ALT 22 U/L (4-49); AST 24 U/L (17-59); African American GFR (CKD) >90 (>60 ml/min/1.73 sqM); Albumin 4.2 g/dL (3.5-5.0); Alkaline Phosphatase 63 U/L (38-126); Anion Gap 8 mmol/L; Blood Urea Nitrogen 17 mg/dL (9-20); Calcium 9.1 mg/dL (8.4-10.2); Carbon Dioxide 27 mmol/L (22-30); Chloride 103 mmol/L (98-107); Glucose 92 mg/dL (74-99); Non-African American GFR(CKD) 86 (>60 ml/min/1.73 sqM); Potassium 4.4 mmol/L (3.5-5.1); Sodium 138 mmol/L (137-145); Total Bilirubin 0.8 mg/dL (0.2-1.3); Total Protein 6.9 g/dL (6.3-8.2)
[2024-08-27] MEDS: LIDOCAINE 1% INJ 10MG/ML (20 ML MDV) SQ ONE ×3 (11:25→11:42)
[2024-08-27] MEDS: ROPIVACAINE 5 MG/ML 30 ML VIAL MISCELLANE ONE (11:26)
--- NOTE | 2024-08-27 12:46 | P.HPCAR ---
History of Present Illness This is Dr. Lynch dictating an H/P on this patient The patient was interviewed and examined IMPRESSION / ASSESSMENT: Exercise-induced monomorphic VT with presyncope. Right bundle branch block morphology with a superior axis History of obstructive sleep apnea with sinus pauses and sinus bradycardia down to the 30s Prior history of atrial tachycardia status post ablation PLAN: Diagnostic EP study and possible radiofrequency ablation of ventricular tachycardia HPI Patient has had a history of presyncope and dizziness. He has associated palpitations On a treadmill he had sustained monomorphic VT associated presyncope ROS: No fever chills or rigors, no cough, phlegm or expectoration, no nausea, vomiting or diarrhea, no hematuria, dysuria, no musculoskeletal complaints, no strokes or seizures, no skin lesions. EXAMINATION: 153/93, pulse rate 89 beats a minute afebrile Breath sounds are clear no rhonchi no crackles No JVD No lower extremity edema Heart sounds S1-S2 normal no murmurs REVIEW OF LABS, ECG & MEDICAL DATA Hemoglobin 16 normal white count Normal platelet count Normal electrolytes TSH 0.9, normal Physical Exam Vitals: Vital Signs Temp Pulse Resp BP Pulse Ox 08/27/24 10:06 98.6 F 89 16 153/93 98 Intake and Output 08/26/24 08/27/24 08/27/24 22:59 06:59 14:59 Intake Total 21 Balance 21 Intake: IV 21 Other: Weight 100.5 kg Past Medical History Past Medical History: GERD/Reflux, Hypertension, Sleep Apnea/CPAP/BIPAP, Supraventricular Tachycardia (SVT) Additional Past Medical History / Comment(s): Hx Colitis and headaches, SVT, vertigo, uses CPAP, wide complex VT during stress test 06/19/24 - sent to ER, see Dr. Lynch's H & P History of Any Multi-Drug Resistant Organisms: None Reported Past Surgical History: Heart Catheterization Additional Past Surgical History / Comment(s): colonoscopy, EP study Past Anesthesia/Blood Transfusion Reactions: No Reported Reaction Additional Past Anesthesia/Blood Transfusion Reaction / Comment(s): never received blood Smoking Status: Former smoker - Past Family History Mother Family Medical History: Diabetes Mellitus, Fibromyalgia Additional Family Medical History / Comment(s): "heart problems", Father Family Medical History: Cancer, Pneumonia Additional Family Medical History / Comment(s): home O2, prostate CA Physical Examination Vital Signs Temp Pulse Resp BP Pulse Ox 08/27/24 10:06 98.6 F 89 16 153/93 98 Intake and Output 08/26/24 08/27/24 08/27/24 22:59 06:59 14:59 Intake Total 21 Balance 21 Intake: IV 21 Other: Weight 100.5 kg Results 08/27/24 09:46 08/27/24 09:46 Cardiac Enzymes 08/27/24 Range/Units 09:46 AST 24 (17-59) U/L CBC 08/27/24 Range/Units 09:46 WBC 5.3 (3.8-10.6) k/uL RBC 5.91 H (4.30-5.90) m/uL Hgb 16.0 (13.0-17.5) gm/dL Hct 49.2 (39.0-53.0) % Plt Count 149 L (150-450) k/uL Comprehensive Metabolic Panel 08/27/24 Range/Units 09:46 Sodium 138 (137-145) mmol/L Potassium 4.4 (3.5-5.1) mmol/L Chloride 103 (98-107) mmol/L Carbon Dioxide 27 (22-30) mmol/L BUN 17 (9-20) mg/dL Creatinine 1.00 (0.66-1.25) mg/dL Glucose 92 (74-99) mg/dL Calcium 9.1 (8.4-10.2) mg/dL AST 24 (17-59) U/L ALT 22 (4-49) U/L Alkaline Phosphatase 63 (38-126) U/L Total Protein 6.9 (6.3-8.2) g/dL Albumin 4.2 (3.5-5.0) g/dL Current Medications Generic Name Dose Route Start Last Admin Trade Name Freq PRN Reason Stop Dose Admin Sodium Chloride 1,000 mls @ 20 mls/hr 08/27/24 05:55 08/27/24 10:06 Saline 0.9% IV 09/26/24 05:54 20 mls/hr .Q24H TRACY Administration Lactated Ringer's 1,000 mls @ 20 mls/hr 08/27/24 05:55 Lactated Ringers IV 09/26/24 05:54 .Q24H TRACY Intake and Output 08/26/24 08/27/24 08/27/24 22:59 06:59 14:59 Intake Total 21 Balance 21 Intake: IV 21 Other: Weight 100.5 kg Patient Weight 08/28/24 06:59 Weight 100.5 kg 08/27/24 09:46 08/27/24 09:46
[2024-08-27] MEDS: HEPARIN SODIUM (1,000 UNIT/ML) 1,000 UNIT in SODIUM CHLORIDE 0.9% 1,000 ML IRRIGATION ONE (14:00)
[2024-08-27] MEDS: LACTATED RINGERS 1,000 ML IV ONE (16:12)
--- NOTE | 2024-08-27 16:56 | P.EPPROC ---
- EP Procedure Note Electrophysiology Procedure Note: Preprocedure diagnosis: Exercise-induced VT associated with presyncope Recurrent palpitations with presyncope Final diagnosis LV VT, focal, posterior to proximal left posterior fascicle, 2 cm below aortic root Best pace map of 94% about 1 cm below aortic root and 1 cm from the proximal left posterior fascicle Earliest activation map 1 cm distal to the site of the best pace map, 1.5 cm posterior from the proximal left posterior fascicle Very suboptimal pace maps along the distal portion of the left posterior fascicle and Purkinje network area VT MDI of about 35 to 50% of the total QRS, consistent with a somewhat deep focus QRS width 144 ms during VT Details Patient was brought to the EP lab in a fasting state. Written informed consent was obtained prior to the procedure. The right and left groins were prepped and draped as a protocol and 1 venous sheath was placed in the left femoral vein, 2 venous sheaths in the right femoral vein and later right femoral artery sheath was placed. Sinus cycle length 650 ms, KY interval 161, QRS 101 and QT 354 ms AH 84 ms and HV interval 35 ms Sinus node recovery times at a pacing cycle length of 600 ms was 1102 ms. AV node Wenckebach block 320 ms Burst stimulation was performed from the high right atrium and the coronary sinus area. No inducible SVT or atrial tachycardia Isopril started wide open. Burst stimulation was performed from the right ventricle Extra stimulation up to triple extrastimuli were performed from the right ve ntricle On Isopril 3 sites from the right ventricle were interrogated but no VT was induced Occasional PVCs were noted from the LV inferior wall of different morphologies It took a long time to induce his clinical VT Finally Isopril was withdrawn and when his sinus cycle length of Isopril was around 450 ms, triple extrastimuli from the RV apex at 400/200/200/200 ms resulted in induction of ventricular tachycardia VT cycle length was around 250 ms Initially his blood pressure stable but later his blood pressure dropped to 70 mmHg Synchronized electrical cardioversion was performed The coronary sinus was interrogated and mapped. A venogram was performed to evaluate the middle cardiac vein. However this was an extremely tortuous vein and therefore the ablation catheter and the CS catheter could not be placed and here A Penta ray catheter was then placed in the left ventricle Intracardiac echo was performed 3D mapping was performed. The papillary muscle aortic root and the LVOT area we re carefully identified and tagged The His bundle left posterior fascicle and left anterior fascicle were identified and tagged on the 3D map Baseline voltage map was performed. Normal voltages noted in the left ventricular specially along the inferior wall, in the approximate region of where the VT could be originating from Thereafter pace mapping was performed The best pace map for the VT was around 94.4%, about 1 to 2 cm below the aortic root The pace map along the distal portion of the left inferior fascicle and in the region of his Purkinje network was very suboptimal His best pace map was about 9 mm away from the proximal left posterior fascicle Following that Isopril was started and during the washout. VT was once again induced with some difficulty. The patient was hypotensive and the blood pressure had to be maintained with pressors However a focused activation map was performed in the region of the best pace map area posterior the left posterior fascicle The earliest activation site was about 1 cm distal to the best pace map. The pace map in this region was around 90% concordant with the VT The VT QRS width was 144 ms MDI was between 30 to 50% The earliest activation site was about 1.5 cm away from the proximal left posterior fascicle RF ablation was performed at the site and VT beats were induced A power of up to 45 W was used Contact force of about 10 g was achieved The earliest activation site was ablated and the region around it was also ablated somewhat more distally as well as proximally The best pace map site of 94% was NOT ablated since it was about 9 mm away from the left posterior fascicle During ablation the patient's KY interval remained normal QRS width was normal QRS morphology remained stable Towards the end patient's blood pressure was around 90 mmHg but intracardiac echo did not reveal any pericardial effusion Therefore the procedure was stopped at this point Heparin was used through the procedure ACT maintained between 330 and 370 . Once all catheters were removed at the end of the procedure heparin was discontinued Venous closure devices were used The arterial puncture site was closed with Perclose successfully and hemostasis was achieved Overall, the patient tolerated the procedure well without any acute complications
--- NOTE | 2024-08-27 16:58 | P.EPPROC ---
- EP Procedure Note Electrophysiology Procedure Note: VT mapping and ablation was a long procedure on account of 1. It was difficult to induce VT both in the baseline state and on Isopril and finally VT was induced only during Isopril washout when the cycle length was approximately about 450 ms sinus tachycardia Triple extrastimuli from the RV apex resulted in induction of VT consistently but in a sedated state, during Isuprel washout only 2. Best contact was obtained with a DF curve ablation catheter, on account of small normal LV size 3. Following pace mapping, once again VT had to be reinduced to map the earliest activation site. It was more difficult to induce VT at this time and this was associated with hypotension requiring electrical cardioversion. Pace mapping would not terminate the VT. Pressors were used to facilitate titration mapping of the VT
[2024-08-27] MEDS: HYDROmorphone 0.5 MG/0.5 ML SYRINGE IVP STA (17:18)
[2024-08-27] MEDS: LACTATED RINGERS 1,000 ML IV SCH (18:40)
[2024-08-27] MEDS: ASPIRIN 325 MG TAB PO STA (18:56)
--- NOTE | 2024-08-27 19:29 | P.EPPROC ---
- EP Procedure Note Electrophysiology Procedure Note: Dear Belkis Shahid underwent a diagnostic EP study for exercise-induced V. tach associated presyncope In the EP lab it was difficult to induce SVT but finally we were able to do so during Isuprel washout and triple extrastimuli. The VT focus in the left ventricle was at a distance of about 1 cm from the left bundle, posterior fascicle Successful ablation was performed without any injury to the left bundle or the left posterior fascicle. However the proximity to the structures limited the amount and extent of ablations delivered. Will continue to follow him but I would recommend 325 mg of aspirin for the first 1 month. Thereafter he can go back to 81 mg p.o. daily Thank you for entrusting me with the care of the patient Warm regards Sincerely Domingo Lynch
[2024-08-27] MEDS: ACETAMINOPHEN TAB 325 MG TAB PO PRN (20:24)
[2024-08-27] MEDS: ONDANSETRON 4 MG/2 ML VIAL IVP PRN (20:24)
[2024-08-27] MEDS: lisinopriL 20 MG TAB PO SCH (20:24)
[2024-08-27] MEDS: ACETAMINOPHEN IV (For NPO) 1,000 MG in EMPTY BAG 1 BAG IVPB ONE (20:43)
[2024-08-28] MEDS: METOPROLOL TARTRATE 25 MG TAB PO SCH (08:03)
[2024-08-28] MEDS: ASPIRIN 325 MG TAB PO SCH (08:03)
[2024-08-28 09:27] VITALS: BP 149/79; PULSE 75; RESP 16; TEMP 98.2
--- NOTE | 2024-08-28 09:42 | P.DS ---
Providers Date of admission: 08/27/24 Attending physician: Domingo Lynch Primary care physician: [facility] Hospital Course: Patient is a 54-year-old male who follows in the office with Dr. Lynch. Patient has idiopathic ventricular tachycardia. Yesterday he underwent EP study and VT ablation. There was difficulty inducing them ventricular tachycardia and it was an extended procedure due to location of the arrhythmia. Patient states he did well overnight. No chest pain or pressure. No difficulty breathing. No discomfort in his bilateral groins. GENERAL: Well-appearing, well-nourished and in no acute distress. NECK: Supple without JVD or thyromegaly. LUNGS: Breath sounds clear to auscultation bilaterally. Respiration equal and unlabored. No wheezes, rales or rhonchi. HEART: Regular rate and rhythm without murmurs, rubs or gallops. S1 and S2 hear d. EXTREMITIES: Normal range of motion, no edema. No clubbing or cyanosis. Peripheral pulses intact and strong. Bilateral groin sites are healed. No hematoma TELEMETRY: Sinus rhythm overnight LABS: WBC 5.3, hemoglobin 16.0, Jones crit 49.2, platelet 149, sodium 138, potassium 4.4, BUN 17, creatinine 1.0, AST 24, ALT 22, TSH 0.88 IMPRESSION: Idiopathic monomorphic ventricular tachycardia Status post ablation Hypertension History of smoking PLAN: Continue current medication regimen Aspirin 325 mg for 1 month, then 81 mg thereafter Patient may be discharged for outpatient follow-up I am dictating on behalf of Dr Domingo Lynch's history/physical and assessment/plan. Plan - Discharge Summary Discharge Rx Participant: Yes New Discharge Prescriptions: Continue lisinopriL [Zestril] 20 mg PO HS Aspirin 81 mg PO ONCE Metoprolol Tartrate [Lopressor] 25 mg PO DAILY Discharge Medication List lisinopriL [Zestril] 20 mg PO HS 04/15/20 [History] Aspirin 81 mg PO ONCE 06/25/24 [History] Metoprolol Tartrate [Lopressor] 25 mg PO DAILY 06/25/24 [History] Follow up Appointment(s)/Referral(s): Domingo Lynch MD [STAFF PHYSICIAN] - 1 Week Activity/Diet/Wound Care/Special Instructions: Post EP study - Ablation instructions 1. Keep access sites dry for 2 days. 2. No heavy lifting or straining for 2 days. 3. Avoid bending the hips repeatedly for 2 days. 4. You may go up and down stairs slowly 5. If you have had an ablation for atrial fibrillation or atrial flutter and are on a blood thinner, do not stop the blood thinner even temporarily for 3 months post ablation Call if the following is noted 1. Bleeding, increasing swelling or pain at the access sites. 2. Increasing chest discomfort, especially upon taking a deep breath. 3. Increasing shortness of breath, at rest or with exertion. 4. Undue cough / phlegm 5. Difficulty or pain while swallowing. 6. Pain or change in color in the extremities. 7. Fever, chills, rigors. 8. Increasing headache or neurologic symptoms. 9. Dizziness, fainting, palpitations Take 325 mg of aspirin for the next 4 weeks and then go back to 81 mg p.o. daily thereafter Continue metoprolol and lisinopril Discharge Disposition: HOME SELF-CARE
== END 2024-08-28 10:49 | disposition home or self-care (01) ==
LOC: CATHEP 08:50 → 6NMEDSUR 16:25 → CATHEP 08-28 10:49
PROVIDERS: ATTEND Internal Medicine Clinical Cardiac Electrophysiology
DX: I47.20 Ventricular tachycardia, unspecified (principal); I44.1 Atrioventricular block, second degree; I45.10 Unspecified right bundle-branch block; I47.10 Supraventricular tachycardia, unspecified; I47.29 Other ventricular tachycardia; I49.3 Ventricular premature depolarization; I10 Essential (primary) hypertension; K21.9 Gastro-esophageal reflux disease without esophagitis; G47.33 Obstructive sleep apnea (adult) (pediatric); Z87.891 Personal history of nicotine dependence; Z98.890 Other specified postprocedural states; Z99.89 Dependence on other enabling machines and devices; Z79.899 Other long term (current) drug therapy
CPT/HCPCS: 93623; 93662; 93654; 86900; 86901; 80053; 84443; 85025; 86850; C1759; C1751; C1894; C1769; C1760 ×3; C1730 ×3; C1731; C1893; C1732; J2250; J1644 ×2; J1940; J2405; J2003; J3010; J2795; J2704; J1171; J1596

== ENCOUNTER → 2024-09-02 | Outpatient (CLI) | payer OTHER ==
--- NOTE | 2024-09-02 15:21 | US ---
EXAMINATION TYPE: US groin RT DATE OF EXAM: 09/02/2024 COMPARISON: NONE CLINICAL INDICATION: Male, 54 years old with history of M79.81 NONTRAUMATIC HEMATOMA OF SOFT TISSUE; Patient had recent procedure within right groin for heart ablation and now has bruised, painful righ t groin. Order states r/o hematoma TECHNIQUE: Soft tissue scan of right groin FINDINGS: Normal appearing soft tissue and vasculature. No obvious abnormality seen. IMPRESSION: No suspicious focal fluid collection to suggest groin hematoma. [facility], , 09/02/2024 3:18 PM
== END | disposition home or self-care (01) ==
LOC: RADUSWWP 14:43
PROVIDERS: ATTEND Internal Medicine Clinical Cardiac Electrophysiology
DX: M79.81 Nontraumatic hematoma of soft tissue (principal)

== ENCOUNTER 2024-10-25 06:47 | Emergency (ER) | payer OTHER ==
[2024-10-25 06:53] VITALS: TEMP 97.7
--- NOTE | 2024-10-25 07:09 | ED ---
Abdominal Pain HPI - General Chief Complaint: Abdominal Pain Stated Complaint: abd pain/back pain Time Seen by Provider: 10/25/24 06:56 Source: patient, RN notes reviewed Mode of arrival: ambulatory Limitations: no limitations - History of Present Illness Initial Comments: 54-year-old male presents emergency department chief complaint of right upper quadrant abdominal pain. Patient states around 6 PM last night shortly after eating. Patient states in his back front of his abdomen. Nothing makes pain feel better or worse no lower abdominal pain no dysuria no change in bowel habits states been driving states he did no prior abdominal surgeries no chest pain no shortness of breath. - Related Data Home Medications Medication Instructions Recorded Confirmed lisinopriL [Zestril] 20 mg PO HS 04/15/20 08/27/24 Aspirin 81 mg PO ONCE 06/25/24 08/27/24 Metoprolol Tartrate [Lopressor] 25 mg PO DAILY 06/25/24 08/27/24 Allergies Allergy/AdvReac Type Severity Reaction Status Date / Time No Known Allergies Allergy Verified 10/25/24 06:53 Review of Systems ROS Statement: Those systems with pertinent positive or pertinent negative responses have been documented in the HPI. ROS Other: All systems not noted in ROS Statement are negative. Past Medical History Past Medical History: GERD/Reflux, Hypertension, Sleep Apnea/CPAP/BIPAP, Supraventricular Tachycardia (SVT) Additional Past Medical History / Comment(s): Hx Colitis and headaches, SVT, vertigo, uses CPAP, wide complex VT during stress test 06/19/24 - sent to ER History of Any Multi-Drug Resistant Organisms: None Reported Past Surgical History: No Surgical Hx Reported Additional Past Surgical History / Comment(s): colonoscopy, EP study Past Anesthesia/Blood Transfusion Reactions: No Reported Reaction, Motion Sickness Additional Past Anesthesia/Blood Transfusion Reaction / Comment(s): never received blood Past Psychological History: Anxiety, Depression Smoking Status: Former smoker Past Alcohol Use History: Occasional Past Drug Use History: None Reported - Past Family History Mother Family Medical History: Diabetes Mellitus, Fibromyalgia Additional Family Medical History / Comment(s): "heart problems", Father Family Medical History: Cancer, Pneumonia Additional Family Medical History / Comment(s): home O2, prostate CA General Exam Limitations: no limitations General appearance: alert, in no apparent distress Head exam: Present: atraumatic, normocephalic, normal inspection Eye exam: Present: normal appearance, PERRL, EOMI. Absent: scleral icterus, conjunctival injection, periorbital swelling ENT exam: Present: normal exam, normal oropharynx, mucous membranes moist Neck exam: Present: normal inspection, full ROM. Absent: tenderness, meningismus, lymphadenopathy Respiratory exam: Present: normal lung sounds bilaterally. Absent: respiratory distress, wheezes, rales, rhonchi, stridor Cardiovascular Exam: Present: normal rhythm, tachycardia, normal heart sounds. Absent: systolic murmur, diastolic murmur, rubs, gallop, clicks GI/Abdominal exam: Present: soft, tenderness, normal bowel sounds. Absent: distended, guarding, rebound, rigid Back exam: Absent: CVA tenderness (R), CVA tenderness (L) Neurological exam: Present: alert, oriented X3 Skin exam: Present: warm, dry, intact, normal color. Absent: rash Course Vital Signs 10/25/24 10/25/24 10/25/24 06:51 08:00 10:17 Temperature 97.7 F Pulse Rate 125 H 94 97 Respiratory 18 16 18 Rate Blood Pressure 143/86 150/85 162/94 O2 Sat by Pulse 98 96 97 Oximetry Medical Decision Making - Medical Decision Making Was pt. sent in by a medical professional or institution (, PA, FREIGHT ASSOCIATE, urgent care, hospital, or custodial...) When possible be specific @ -No Did you speak to anyone other than the patient for history (EMS, parent, family, police, friend...)? What history was obtained from this source @ -No Did you review nursing and triage notes (agree or disagree)? Why? @ -I reviewed and agree with nursing and triage notes Were old charts reviewed (outside hosp., previous admission, EMS record, old EKG, old radiological studies, urgent care reports/EKG's, custodial records)? Report findings @ -No old charts were reviewed Differential Diagnosis (chest pain, altered mental status, abdominal pain women, abdominal pain men, vaginal bleeding, weakness, fever, dyspnea, syncope, heada tomás, dizziness, GI bleed, back pain, seizure, CVA, palpatations, mental health, musculoskeletal)? @ -Differential Abdominal Pain Men: Appendicitis, cholecystitis, diverticulosis, ischemic bowel, pancreatitis, hepatitis, UTI, gastroenteritis, AAA, incarcerated hernia, bowel obstruction, constipation, inflammatory bowel, hepatitis, peptic ulcer disease, splenic infarction, perforated viscus, testicular torsion, this is not meant to be an all-inclusive list EKG interpreted by me (3pts min.). @ -As above X-rays interpreted by me (1pt min.). @ -None done CT interpreted by me (1pt min.). @ -CT abdomen pelvis showing air within the gallbladder wall and no other acute intra-abdominal process U/S interpreted by me (1pt. min.). @ -Ultrasound gallbladder showing possible emphysematous cholecystitis type changes, normal common bile duct bowel overlying pancreas What testing was considered but not performed or refused? (CT, X-rays, U/S, labs)? Why? @ -None What meds were considered but not given or refused? Why? @ -None Did you discuss the management of the patient with other professionals (pro fessionals i.e. , PA, FREIGHT ASSOCIATE, lab, RT, psych nurse, mental health social worker, court recorder, teacher, security flex officer, director case)? Give summary @ -Discussed case with Dr. Angeles on-call surgeon stated biliary fractions due to patient having elevated conjugated bilirubin felt that patient needs GI evaluation. I discussed case with [facility] who accepts transfer. Was smoking cessation discussed for >3mins.? @ -No Was critical care preformed (if so, how long)? @ -No Were there social determinants of health that impacted care today? How? (Homelessness, low income, unemployed, alcoholism, drug addiction, t ransportation, low edu. Level, literacy, decrease access to med. care, snf, rehab)? @ -No Was there de-escalation of care discussed even if they declined (Discuss DNR or withdrawal of care, Hospice)? DNR status @ -No What co-morbidities impacted this encounter? (DM, HTN, Smoking, COPD, CAD, Cancer, CVA, ARF, Chemo, Hep., AIDS, mental health diagnosis, sleep apnea, morbid obesity)? @ -None Was patient admitted / discharged? Hospital course, mention meds given and route, prescriptions, significant lab abnormalities, going to OR and other pertinent info. @ -[facility]red to [facility] for [facility] evaluation as patient has acute pancreatitis, transaminitis and hyperbilirubinemia ultrasound shows questionable emphysema cholecystitis. Patient was given Zosyn, fluid bolus and analgesics. Undiagnosed new problem with uncertain prognosis? @ -No Drug Therapy requiring intensive monitoring for toxicity (Heparin, Nitro, Insulin, Cardizem)? @ -No Were any procedures done? @ -No Diagnosis/symptom? @ -Emphysema cholecystitis, pancreatitis, transaminitis hyperbilirubinemia Acute, or Chronic, or Acute on Chronic? @ -acute Uncomplicated (without systemic symptoms) or Complicated (systemic symptoms)? @ -Complicated Side effects of treatment? @ -No Exacerbation, Progression, or Severe Exacerbation? @ -No Poses a threat to life or bodily function? How? (Chest pain, USA, MS, pneumonia, PE, COPD, DKA, ARF, appy, cholecystitis, CVA, Diverticulitis, Homicidal, Suicidal, threat to staff... and all critical care pts) @ -Yes surgical risk - Lab Data Result diagrams: 10/25/24 07:16 10/25/24 07:16 Lab Results 10/25/24 10/25/24 10/25/24 Range/Units 07:16 07:16 07:16 WBC 9.19 (4.50-10.00) 10*3/uL RBC 5.90 H (4.40-5.60) 10*6/uL Hgb 16.2 (13.0-17.0) g/dL Hct 48.4 (39.6-50.0) % MCV 82.0 (80.0-97.0) fL MCH 27.5 (27.0-32.0) pg MCHC 33.5 (32.0-37.0) g/dL Plt Count 148 (140-440) 10*3/uL MPV 11.0 (9.5-12.2) fL Immature Gran % (Auto) 0.3 % Neutrophils % 71.9 % Lymphocytes % 18.6 % Monocytes % 7.5 % Eosinophils % 1.2 % Basophils % 0.5 % Immature Gran # 0.03 (0.00-0.04) 10*3/uL Neutrophils # 6.60 (1.80-7.70) 10*3/uL Lymphocytes # 1.71 (0.90-5.00) 10*3/uL Monocytes # 0.69 (0.20-1.00) 10*3/uL Eosinophils # 0.11 (0.04-0.35) 10*3/uL Basophils # 0.05 (0.00-0.10) 10*3/uL Sodium 140 (137-145) mmol/L Potassium 4.0 (3.5-5.1) mmol/L Chloride 107 (98-107) mmol/L Carbon Dioxide 24 (22-30) mmol/L Anion Gap 9 mmol/L BUN 17 (9-20) mg/dL Creatinine 1.13 (0.66-1.25) mg/dL Est GFR (CKD-EPI)AfAm 86 (>60 ml/min/1.73 sqM) Est GFR (CKD-EPI)NonAf 75 (>60 ml/min/1.73 sqM) Glucose 140 H (74-99) mg/dL Plasma Lactic Acid Delmer 1.1 (0.7-2.0) mmol/L Calcium 9.1 (8.4-10.2) mg/dL Total Bilirubin 3.9 H (0.2-1.3) mg/dL Conjugated Bilirubin (0.0-0.3) mg/dL Unconjugated Bilirubin (0.0-1.1) mg/dL Delta Bilirubin (0.0-0.2) mg/dL AST 267 H (17-59) U/L ALT 156 H (4-49) U/L Alkaline Phosphatase 94 (38-126) U/L Total Protein 6.9 (6.3-8.2) g/dL Albumin 4.1 (3.5-5.0) g/dL Amylase 2346 H* (30-110) U/L Lipase >78421 H (23-300) U/L Urine Color Urine Appearance (Clear) Urine pH (5.0-8.0) Ur Specific Machias (1.001-1.035) Urine Protein (Negative) Urine Glucose (UA) (Negative) Urine Ketones (Negative) Urine Blood (Negative) Urine Nitrite (Negative) Urine Bilirubin (Negative) Urine Urobilinogen (<2.0) mg/dL Ur Leukocyte Esterase (Negative) Urine RBC (0-5) /hpf Urine WBC (0-5) /hpf Urine Mucus (None) /hpf 10/25/24 10/25/24 Range/Units 07:34 09:15 WBC (4.50-10.00) 10*3/uL RBC (4.40-5.60) 10*6/uL Hgb (13.0-17.0) g/dL Hct (39.6-50.0) % MCV (80.0-97.0) fL MCH (27.0-32.0) pg MCHC (32.0-37.0) g/dL Plt Count (140-440) 10*3/uL MPV (9.5-12.2) fL Immature Gran % (Auto) % Neutrophils % % Lymphocytes % % Monocytes % % Eosinophils % % Basophils % % Immature Gran # (0.00-0.04) 10*3/uL Neutrophils # (1.80-7.70) 10*3/uL Lymphocytes # (0.90-5.00) 10*3/uL Monocytes # (0.20-1.00) 10*3/uL Eosinophils # (0.04-0.35) 10*3/uL Basophils # (0.00-0.10) 10*3/uL Sodium (137-145) mmol/L Potassium (3.5-5.1) mmol/L Chloride (98-107) mmol/L Carbon Dioxide (22-30) mmol/L Anion Gap mmol/L BUN (9-20) mg/dL Creatinine (0.66-1.25) mg/dL Est GFR (CKD-EPI)AfAm (>60 ml/min/1.73 sqM) Est GFR (CKD-EPI)NonAf (>60 ml/min/1.73 sqM) Glucose (74-99) mg/dL Plasma Lactic Acid Delmer (0.7-2.0) mmol/L Calcium (8.4-10.2) mg/dL Total Bilirubin 3.8 H (0.2-1.3) mg/dL Conjugated Bilirubin 1.4 H (0.0-0.3) mg/dL Unconjugated Bilirubin 1.3 H (0.0-1.1) mg/dL Delta Bilirubin 1.1 H (0.0-0.2) mg/dL AST (17-59) U/L ALT (4-49) U/L Alkaline Phosphatase (38-126) U/L Total Protein (6.3-8.2) g/dL Albumin (3.5-5.0) g/dL Amylase (30-110) U/L Lipase (23-300) U/L Urine Color Yellow Urine Appearance Clear (Clear) Urine pH 5.0 (5.0-8.0) Ur Specific Machias 1.008 (1.001-1.035) Urine Protein 1+ H (Negative) Urine Glucose (UA) Negative (Negative) Urine Ketones Negative (Negative) Urine Blood Trace H (Negative) Urine Nitrite Negative (Negative) Urine Bilirubin 1+ H (Negative) Urine Urobilinogen <2.0 (<2.0) mg/dL Ur Leukocyte Esterase Negative (Negative) Urine RBC 3 (0-5) /hpf Urine WBC <1 (0-5) /hpf Urine Mucus Occasional H (None) /hpf - EKG Data -: EKG Interpreted by Me EKG Comments: EKG performed at 7: 03 sinus tachycardia rate of 116 MA 132 QRS 98 QT/QTc 339/408 Disposition Clinical Impression: Transaminitis, Hyperbilirubinemia, Acute pancreatitis, Emphysematous cholecystitis Disposition: OTHER INSTITUTION NOT DEFINED Condition: Fair Referrals: Belkis Mares DO [Primary Care Provider] - 1-2 days Time of Disposition: 10:18 - Out of Hospital Transfer - Req. Specs Out of Hospital Transfer - Requested Specifics: Other [facility] ([facility])
[2024-10-25] MEDS: KETOROLAC 15 MG/ML 1 ML VIAL IVP STA (07:21)
[2024-10-25] MEDS: SODIUM CHLORIDE 0.9% 1,000 ML IV SCH ×2 (07:21→10:05)
[2024-10-25] MEDS: ONDANSETRON 4 MG/2 ML VIAL IVP STA (07:21)
[2024-10-25] MEDS: HYDROmorphone 0.5 MG/0.5 ML SYRINGE IVP STA (07:21)
[2024-10-25 07:23] LABS: Basophils # (A) 0.05 10*3/uL (0.00-0.10); Basophils % (A) 0.5 %; Eosinophils # (A) 0.11 10*3/uL (0.04-0.35); Eosinophils % (A) 1.2 %; HCT 48.4 % (39.6-50.0); HGB 16.2 g/dL (13.0-17.0); Lymphocytes # (A) 1.71 10*3/uL (0.90-5.00); Lymphocytes % (A) 18.6 %; MCH 27.5 pg (27.0-32.0); MCHC 33.5 g/dL (32.0-37.0); Monocytes # (A) 0.69 10*3/uL (0.20-1.00); Monocytes % (A) 7.5 %; Neutrophils % (A) 71.9 %; Platelet Count 148 10*3/uL (140-440); RDW 12.8 % (11.5-14.5); WBC 9.19 10*3/uL (4.50-10.00)
[2024-10-25 07:50] LABS: Appearance,Urine Clear (Clear); Bilirubin,Urine 1+ (Negative); Blood,Urine Trace (Negative); Color,Urine Yellow; Glucose,Urine (UA) Negative (Negative); Ketones,Urine Negative (Negative); Leukocyte Esterase,Urine Negative (Negative); Mucus,Urine Occasional /hpf; Nitrite,Urine Negative (Negative); Protein,Urine 1+ (Negative); RBC,Urine 3 /hpf (0-5); Specific Gravity,Urine 1.008 (1.001-1.035); Urobilinogen,Urine <2.0 mg/dL (<2.0); WBC,Urine <1 /hpf (0-5)
[2024-10-25 07:55] LABS: ALT 156 U/L (4-49); AST 267 U/L (17-59); African American GFR (CKD) 86 (>60 ml/min/1.73 sqM); Albumin 4.1 g/dL (3.5-5.0); Alkaline Phosphatase 94 U/L (38-126); Anion Gap 9 mmol/L; Blood Urea Nitrogen 17 mg/dL (9-20); Calcium 9.1 mg/dL (8.4-10.2); Carbon Dioxide 24 mmol/L (22-30); Chloride 107 mmol/L (98-107); Glucose 140 mg/dL (74-99); Non-African American GFR(CKD) 75 (>60 ml/min/1.73 sqM); Sodium 140 mmol/L (137-145); Total Bilirubin 3.9 mg/dL (0.2-1.3); Total Protein 6.9 g/dL (6.3-8.2)
[2024-10-25 08:04] LABS: Amylase 2346 U/L (30-110)
--- NOTE | 2024-10-25 08:15 | US ---
EXAMINATION TYPE: US gallbladder DATE OF EXAM: 10/25/2024 COMPARISON: NONE CLINICAL INDICATION: Male, 54 years old with history of pain; Epigastric pain began at 6pm last night , nausea and dry heaving began this morning TECHNIQUE: Grayscale and color Doppler imaging of the right upper quadrant was performed. FINDINGS: EXAM MEASUREMENTS: Liver Length: 16.6 cm Gallbladder Wall: 0.2 cm CBD: 0.6 cm Right Kidney: 11.6x5.5x4.0 cm SERVICE ADMINISTRATOR NOTES: Pancreas: mostly obscured by bowel gas Liver: hepatic cyst right lobe: 4.0x3.6x4.0cm Gallbladder: dependent tumefactive sludge with area of highly echogenic reflectors with low-level po sterior shadowing which may represent air in the GB lumen ?Emphysematous cholecystitis? Evidence for sonographic Jimenez's sign: No CBD: upper limits Right Kidney: wnl exam limited by bowel gas, and rib shadows IMPRESSION: 1. Sludge and possibly gallbladder air. There are exclude emphysematous cholecystitis. 2. No biliary ductal dilatation. 3. Negative sonographic Jimenez sign. 4. Pancreas obscured by bowel gas. 5. CT abdomen and pelvis might be useful for further evaluation. [facility], , 10/25/2024 8:12 AM
[2024-10-25 08:27] LABS: Lipase >20000 U/L (23-300)
--- NOTE | 2024-10-25 08:49 | CT ---
EXAMINATION TYPE: CT abdomen pelvis w con DATE OF EXAM: 10/25/2024 COMPARISON: 12/28/2016 CLINICAL INDICATION: Male, 54 years old with history of abd pain, abnormal US; PHH, Abdominal pain. A bnormal US. TECHNIQUE: Performed without Oral Contrast and with IV Contrast, patient injected with 100 ml mL of Isovue 300. CT DLP: 1183.[address] CTDI: mGy Automated exposure control for dose reduction was used. Findings: There is mild atelectasis in the lung bases. The gallbladder is normal without distention, wall thickening, pericholecystic fluid or gallstones. T here is suggestion of tiny air bubbles within the gallbladder wall adjacent to the liver. There is no biliary ductal dilatation. There are 2 simple cysts in the liver the largest of which is in the right lobe and measures 4.3 cm. There is a 15 mm hypodensity adjacent to the gallbladder which was seen previously and most likely re presents a benign hemangioma There is no solid renal mass or hydronephrosis and there is homogeneous contrast enhancement of the r enal parenchyma. The caliber the abdominal aorta is normal is no retroperitoneal adenopathy or hemorr penny. The bowel loops are normal in caliber and there is no evidence of dilatation or obstruction. No infla mmatory changes are identified in the bowel wall or mesentery. There is no free intraperitoneal air or fluid. No pelvic mass, free fluid, abscess or adenopathy. There is moderate to marked prostatic hypertrophy. The osseous structures and soft tissues are intact. IMPRESSION: 1. Cannot exclude tiny air bubbles within the gallbladder wall which could correlate with the ultraso und findings. No gallbladder distention, gallstones or pericholecystic fluid. No biliary ductal dilat ation. 2. Benign liver cysts and probable small hemangioma. No change compared to the CT abdomen dated 2016 3. Moderate to marked prostatic hypertrophy. [facility], , 10/25/2024 8:46 AM
[2024-10-25 09:25] LABS: Bilirubin, Conjugated 1.4 mg/dL (0.0-0.3); Bilirubin, Delta 1.1 mg/dL (0.0-0.2); Bilirubin,Unconjugated 1.3 mg/dL (0.0-1.1); Total Bilirubin 3.8 mg/dL (0.2-1.3)
[2024-10-25] MEDS: PIPERACILLIN-TAZOBACTAM 3.375 GM in SODIUM CHLORIDE 0.9% 100 ML IVPB STA (09:34)
[2024-10-25 10:17] VITALS: PULSE 97; RESP 18
[2024-10-25 11:32] VITALS: BP 150/94
== END 2024-10-25 11:39 | disposition other institution (70) ==
LOC: EC 06:47
DX: K85.90 Acute pancreatitis without necrosis or infection, unspecified (principal); E80.6 Other disorders of bilirubin metabolism; K81.0 Acute cholecystitis; R74.01 Elevation of levels of liver transaminase levels; R00.0 Tachycardia, unspecified; Z87.891 Personal history of nicotine dependence
CPT/HCPCS: 36415; 93005; 80053; 82150; 82248; 83605; 83690; 85025; 81001; 87040; 76705; 74177; 99285; 96365; 96366; 96375; 96361; J2543; J2405; J1885; J1171; Q9967

== ENCOUNTER 2024-11-24 14:13 | Emergency (ER) | payer OTHER ==
--- NOTE | 2024-11-24 14:36 | ED ---
Male Urogenital HPI - General Source: patient, RN notes reviewed, old records reviewed Mode of arrival: ambulatory Limitations: no limitations <Renee Garsia - Last Filed: 11/24/24 15:56> <Heather Andino - Last Filed: 11/24/24 18:06> - General Chief complaint: Urogenital Stated complaint: Urogenital Time Seen by Provider: 11/24/24 14:36 - History of Present Illness Initial comments: 54-year-old male presented the ER for evaluation of urinary incontinence. Patient had cholecystectomy performed [facility] yesterday by Dr. Dawkins. reports patient had Mcclure catheter in place for procedure which was removed at discharge. Patient states since returning home he has been having urinary incontinence. He states he will attempt to urinate but will not have any output. Patient also is reporting generalized abdominal pain and lumbar back pain. He denies any bowel incontinence/retention, fevers or history of IV drug abuse. No known back injuries. Patient also admits to nausea and vomiting and decreased appetite. Patient has been taking [id number] ibuprofen and Tylenol along with prescribed oxycodone for pain control without relief. reports she contacted general surgeon's office today who instructed him to come to the ER for further evaluation. Patient denies a history of urinary retention or enlarged prostate. reports patient was seen here last month and ultimately transferred to [facility] for evaluation of his gallbladder. She states patient was admitted there for couple of days and discharged home with scheduled outpatient cholecystectomy which was complet ed yesterday. He denies any dizziness, lightheadedness, chest pain, shortness of breath or other complaints at this time (Renee Garsia) - Related Data Home Medications Medication Instructions Recorded Confirmed lisinopriL [Zestril] 20 mg PO HS 04/15/20 08/27/24 Aspirin 81 mg PO ONCE 06/25/24 08/27/24 Metoprolol Tartrate [Lopressor] 25 mg PO DAILY 06/25/24 08/27/24 Allergies Allergy/AdvReac Type Severity Reaction Status Date / Time No Known Allergies Allergy Verified 11/24/24 14:27 Review of Systems ROS Other: All systems not noted in ROS Statement are negative. <Renee Garsia - Last Filed: 11/24/24 15:56> ROS Other: All systems not noted in ROS Statement are negative. <Heather Andino - Last Filed: 11/24/24 18:06> ROS Statement: Those systems with pertinent positive or pertinent negative responses have been documented in the HPI. Past Medical History Past Medical History: GERD/Reflux, Hypertension, Sleep Apnea/CPAP/BIPAP, Sup raventricular Tachycardia (SVT) Additional Past Medical History / Comment(s): Hx Colitis and headaches, SVT, vertigo, uses CPAP, wide complex VT during stress test 06/19/24 - sent to ER History of Any Multi-Drug Resistant Organisms: None Reported Past Surgical History: No Surgical Hx Reported Additional Past Surgical History / Comment(s): colonoscopy, EP study Past Anesthesia/Blood Transfusion Reactions: No Reported Reaction, Motion Sickness Additional Past Anesthesia/Blood Transfusion Reaction / Comment(s): never received blood Past Psychological History: Anxiety, Depression Smoking Status: Former smoker Past Alcohol Use History: Occasional Past Drug Use History: None Reported - Past Family History Mother Family Medical History: Diabetes Mellitus, Fibromyalgia Additional Family Medical History / Comment(s): "heart problems", Father Family Medical History: Cancer, Pneumonia Additional Family Medical History / Comment(s): home O2, prostate CA <Renee Garsia - Last Filed: 11/24/24 15:56> General Exam Limitations: no limitations General appearance: alert, in no apparent distress, anxious Respiratory exam: Present: normal lung sounds bilaterally. Absent: respiratory distress, wheezes, rales, rhonchi, stridor Cardiovascular Exam: Present: normal rhythm, tachycardia, normal heart sounds GI/Abdominal exam: Present: soft, tenderness (Lower abdominal), normal bowel sounds, other (5 laparoscopic surgical incision with surrounding contusion. Dermal glue in place. No purulent drainage or edema surrounding incisions.) Back exam: Present: normal inspection, full ROM Neurological exam: Present: alert, oriented X3, CN II-XII intact Psychiatric exam: Present: anxious Skin exam: Present: warm, dry, intact, normal color, diaphoretic (Mild). Absent: rash <Renee Garsia - Last Filed: 11/24/24 15:56> Course <Renee Garsia - Last Filed: 11/24/24 15:56> Vital Signs 11/24/24 11/24/24 11/24/24 14:23 15:26 17:20 Temperature 98.1 F 98.9 F 99 F Pulse Rate 111 H 110 H 108 H Respiratory 22 22 16 Rate Blood Pressure 168/89 177/92 158/80 O2 Sat by Pulse 98 100 98 Oximetry - Reevaluation(s) Reevaluation #1: 11/24/24 16:00 Patient signed out to Heather Andino PA-C pending CT results, UA and disposition. (Renee Garsia) Medical Decision Making - Lab Data Result diagrams: 11/24/24 15:12 11/24/24 15:12 - EKG Data -: EKG Interpreted by Me <Renee Garsia - Last Filed: 11/24/24 15:56> - Lab Data Result diagrams: 11/24/24 15:12 11/24/24 15:12 <Heather Andino - Last Filed: 11/24/24 18:06> - Medical Decision Making Was pt. sent in by a medical professional or institution (, CONSTANTIN, WASHING TUB OPERATOR, urgent care, hospital, or assisted...) When possible be specific @ -No Did you speak to anyone other than the patient for history (EMS, parent, family, police, friend...)? What history was obtained from this source @ -Patient's , bedside, aiding in HPI past medical history. Did you review nursing and triage notes (agree or disagree)? Why? @ -I reviewed and agree with nursing and triage notes Were old charts reviewed (outside hosp., previous admission, EMS record, old EKG, old radiological studies, urgent care reports/EKG's, assisted records)? Report findings @ -No old charts were reviewed Differential Diagnosis (chest pain, altered mental status, abdominal pain women, abdominal pain men, vaginal bleeding, weakness, fever, dyspnea, syncope, headache, dizziness, GI bleed, back pain, seizure, CVA, palpatations, mental health, musculoskeletal)? @ -Urinary retention, urinary incontinence, UTI, STD, postoperative pain, sepsis... This list is not meant to be all-inclusive EKG interpreted by me (3pts min.). @ -As above X-rays interpreted by me (1pt min.). @ -None done CT interpreted by me (1pt min.). @ -Pending U/S interpreted by me (1pt. min.). @ -None done What testing was considered but not performed or refused? (CT, X-rays, U/S, labs)? Why? @ -None What meds were considered but not given or refused? Why? @ -None Did you discuss the management of the patient with other professionals (professionals i.e. CONSTANTIN Simeon, WASHING TUB OPERATOR, lab, RT, psych nurse, aids social worker, 21 dealer, teacher, youth officer, major case detective)? Give summary @ -No Was smoking cessation discussed for >3mins.? @ -No Was critical care preformed (if so, how long)? @ -No Were there social determinants of health that impacted care today? How? (Homelessness, low income, unemployed, alcoholism, drug addiction, transportation, low edu. Level, literacy, decrease access to med. care, retirement, rehab)? @ -No Was there de-escalation of care discussed even if they declined (Discuss DNR or withdrawal of care, Hospice)? DNR status @ -No What co-morbidities impacted this encounter? (DM, HTN, Smoking, COPD, CAD, Cancer, CVA, ARF, Chemo, Hep., AIDS, mental health diagnosis, sleep apnea, morbid obesity)? @ -None Was patient admitted / discharged? Hospital course, mention meds given and route, prescriptions, significant lab abnormalities, going to OR and other pertinent info. @ -[54 year old male presenting to the ER for evaluation of urinary incontinence status post cholecystectomy. Upon arrival patient tachycardic at 111 bpm vitals otherwise stable. Patient is mildly diaphoretic and anxious pacing exam room upon examination. Abdominal exam remarkable for lower abdominal tenderness with normal bowel sounds there is no rebound or guarding. Laparoscopic surgical incisions noted to abdomen with surrounding contusion. No red flag back pain symptoms indicative cauda equina syndrome laboratory studies obtained with a leukocytosis of 11.9 with a left shift likely reactive. GIOVANY BUN 22, creatinine 1.99 with a GFR 38 for which patient received IV fluids. Patient provided symptomatic control with IV Toradol, Dilaudid and Zofran. CT Abdo pelvis, UA and disposition pending at time of signout to Heather Andino PA-C at my shift completion. (Renee Garsia) Was pt. sent in by a medical professional or institution (Dr., PA, WASHING TUB OPERATOR, urgent care, hospital, or assisted...) When possible be specific @ -No Did you speak to anyone other than the patient for history (EMS, parent, family, police, friend...)? What history was obtained from this source @ -No Did you review nursing and triage notes (agree or disagree)? Why? @ -I reviewed and agree with nursing and triage notes Were old charts reviewed (outside hosp., previous admission, EMS record, old EKG, old radiological studies, urgent care reports/EKG's, assisted records)? Report findings @ -No old charts were reviewed Differential Diagnosis (chest pain, altered mental status, abdominal pain women, abdominal pain men, vaginal bleeding, weakness, fever, dyspnea, syncope, headache, dizziness, GI bleed, back pain, seizure, CVA, palpatations, mental health, musculoskeletal)? @ -Urinary retention, urinary incontinence, UTI, cauda equina EKG interpreted by me (3pts min.). @ -As above X-rays interpreted by me (1pt min.). @ -None done CT interpreted by me (1pt min.). @ -CT abdomen pelvis reveals postsurgical changes indicating recent ch olecystectomy, interval development of mild bilateral hydronephrosis and marked distention of urinary bladder, marked prostatic hypertrophy raising question of urinary bladder outlet obstruction U/S interpreted by me (1pt. min.). @ -None done What testing was considered but not performed or refused? (CT, X-rays, U/S, labs)? Why? @ -None What meds were considered but not given or refused? Why? @ -None Did you discuss the management of the patient with other professionals (professionals i.e. , PA, WASHING TUB OPERATOR, lab, RT, psych nurse, aids social worker, 21 dealer, teacher, youth officer, major case detective)? Give summary @ -No Was smoking cessation discussed for >3mins.? @ -No Was critical care preformed (if so, how long)? @ -No Were there social determinants of health that impacted care today? How? (Homelessness, low income, unemployed, alcoholism, drug addiction, transportation, low edu. Level, literacy, decrease access to med. care, retirement, rehab)? @ -No Was there de-escalation of care discussed even if they declined (Discuss DNR or withdrawal of care, Hospice)? DNR status @ -No What co-morbidities impacted this encounter? (DM, HTN, Smoking, COPD, CAD, Cancer, CVA, ARF, Chemo, Hep., AIDS, mental health diagnosis, sleep apnea, morbid obesity)? @ -None Was patient admitted / discharged? Hospital course, mention meds given and route, prescriptions, significant lab abnormalities, going to OR and other p ertinent info. @ -Discharge. 54-year-old male presenting for urinary incontinence status post hernia surgery yesterday. Patient was signed out to me pending CT abdomen pelvis, UA, and disposition. CT abdomen pelvis reveals postsurgical changes indicating recent cholecystectomy, interval development of mild bilateral hydronephrosis and marked distention of urinary bladder, marked prostatic hyper trophy raising question of urinary bladder outlet. Urinalysis reveals small blood. Bladder scan revealed 531 mL of urine, Mcclure catheter placed at that time. Mcclure catheter is draining appropriately and patient reports improvement of symptoms. Discussed diagnosis of urinary retention. Advised close follow-up with urology and surgeon. Appropriate return precautions discussed. Case was discussed with my ED attending Dr. Hare. Undiagnosed new problem with uncertain prognosis? @ -No Drug Therapy requiring intensive monitoring for toxicity (Heparin, Nitro, Insulin, Cardizem)? @ -No Were any procedures done? @ -No Diagnosis/symptom? @ -Urinary retention Acute, or Chronic, or Acute on Chronic? @ -Acute Uncomplicated (without systemic symptoms) or Complicated (systemic symptoms)? @ -Complicated Side effects of treatment? @ -No Exacerbation, Progression, or Severe Exacerbation? @ -No Poses a threat to life or bodily function? How? (Chest pain, [place], DE, pneumonia, PE, COPD, DKA, ARF, appy, cholecystitis, CVA, Diverticulitis, Homicidal, Suicidal, threat to staff... and all critical care pts) @ -Unlikely at this time (Heather Andino) - Lab Data Lab Results 11/24/24 11/24/24 11/24/24 Range/Units 15:12 15:12 15:12 WBC 11.96 H (4.50-10.00) 10*3/uL RBC 5.74 H (4.40-5.60) 10*6/uL Hgb 16.1 (13.0-17.0) g/dL Hct 46.4 (39.6-50.0) % MCV 80.8 (80.0-97.0) fL MCH 28.0 (27.0-32.0) pg MCHC 34.7 (32.0-37.0) g/dL Plt Count 160 (140-440) 10*3/uL MPV 12.0 (9.5-12.2) fL Immature Gran % (Auto) 0.3 % Neutrophils % 76.5 % Lymphocytes % 13.0 % Monocytes % 9.9 % Eosinophils % 0.1 % Basophils % 0.2 % Immature Gran # 0.03 (0.00-0.04) 10*3/uL Neutrophils # 9.16 H (1.80-7.70) 10*3/uL Lymphocytes # 1.55 (0.90-5.00) 10*3/uL Monocytes # 1.19 H (0.20-1.00) 10*3/uL Eosinophils # 0.01 L (0.04-0.35) 10*3/uL Basophils # 0.02 (0.00-0.10) 10*3/uL Sodium 138 (137-145) mmol/L Potassium 4.4 (3.5-5.1) mmol/L Chloride 105 (98-107) mmol/L Carbon Dioxide 21 L (22-30) mmol/L Anion Gap 12 mmol/L BUN 22 H (9-20) mg/dL Creatinine 1.99 H (0.66-1.25) mg/dL Est GFR (CKD-EPI)AfAm 43 (>60 ml/min/1.73 sqM) Est GFR (CKD-EPI)NonAf 38 (>60 ml/min/1.73 sqM) Glucose 121 H (74-99) mg/dL Plasma Lactic Acid Delmer 1.0 (0.7-2.0) mmol/L Calcium 9.3 (8.4-10.2) mg/dL Total Bilirubin 1.1 (0.2-1.3) mg/dL AST 43 (17-59) U/L ALT 30 (4-49) U/L Alkaline Phosphatase 69 (38-126) U/L Total Protein 7.3 (6.3-8.2) g/dL Albumin 4.6 (3.5-5.0) g/dL Urine Color Urine Appearance (Clear) Urine pH (5.0-8.0) Ur Specific [place] (1.001-1.035) Urine Protein (Negative) Urine Glucose (UA) (Negative) Urine Ketones (Negative) Urine Blood (Negative) Urine Nitrite (Negative) Urine Bilirubin (Negative) Urine Urobilinogen (<2.0) mg/dL Ur Leukocyte Esterase (Negative) Urine RBC (0-5) /hpf Urine WBC (0-5) /hpf Ur Squamous Epith Cells (0-4) /hpf Urine Mucus (None) /hpf 11/24/24 Range/Units 15:51 WBC (4.50-10.00) 10*3/uL RBC (4.40-5.60) 10*6/uL Hgb (13.0-17.0) g/dL Hct (39.6-50.0) % MCV (80.0-97.0) fL MCH (27.0-32.0) pg MCHC (32.0-37.0) g/dL Plt Count (140-440) 10*3/uL MPV (9.5-12.2) fL Immature Gran % (Auto) % Neutrophils % % Lymphocytes % % Monocytes % % Eosinophils % % Basophils % % Immature Gran # (0.00-0.04) 10*3/uL Neutrophils # (1.80-7.70) 10*3/uL Lymphocytes # (0.90-5.00) 10*3/uL Monocytes # (0.20-1.00) 10*3/uL Eosinophils # (0.04-0.35) 10*3/uL Basophils # (0.00-0.10) 10*3/uL Sodium (137-145) mmol/L Potassium (3.5-5.1) mmol/L Chloride (98-107) mmol/L Carbon Dioxide (22-30) mmol/L Anion Gap mmol/L BUN (9-20) mg/dL Creatinine (0.66-1.25) mg/dL Est GFR (CKD-EPI)AfAm (>60 ml/min/1.73 sqM) Est GFR (CKD-EPI)NonAf (>60 ml/min/1.73 sqM) Glucose (74-99) mg/dL Plasma Lactic Acid Del[place] (0.7-2.0) mmol/L Calcium (8.4-10.2) mg/dL Total Bilirubin (0.2-1.3) mg/dL AST (17-59) U/L ALT (4-49) U/L Alkaline Phosphatase (38-126) U/L Total Protein (6.3-8.2) g/dL Albumin (3.5-5.0) g/dL Urine Color Colorless Urine Appearance Clear (Clear) Urine pH 5.5 (5.0-8.0) Ur Specific [place] 1.014 (1.001-1.035) Urine Protein Negative (Negative) Urine Glucose (UA) Negative (Negative) Urine Ketones Negative (Negative) Urine Blood Small H (Negative) Urine Nitrite Negative (Negative) Urine Bilirubin Negative (Negative) Urine Urobilinogen <2.0 (<2.0) mg/dL Ur Leukocyte Esterase Negative (Negative) Urine RBC 1 (0-5) /hpf Urine WBC 2 (0-5) /hpf Ur Squamous Epith Cells <1 (0-4) /hpf Urine Mucus Rare H (None) /hpf - EKG Data EKG Comments: EKG taken at 15: 38 showed a sinus rhythm with sinus arrhythmia. No ST segment elevation or depression. No T wave inversions. Ventricular rate 81, HI interval 157, QRS duration 92, QT/QTc 329/366 (Renee Garsia) Disposition <Renee Garsia - Last Filed: 11/24/24 15:56> Is patient prescribed a controlled substance at d/c from ED?: No Time of Disposition: 18:03 <Heather Andino - Last Filed: 11/24/24 18:06> Clinical Impression: Urinary retention Disposition: HOME SELF-CARE Condition: Stable Instructions (If sedation given, give patient instructions): Urinary Retention in Men (ED) Additional Instructions: Follow-up with urology within the week for Mcclure removal. Follow-up with your surgeon tomorrow. Please return to the Emergency Department if symptoms worsen or any other concerns. Referrals: Belkis Mares DO [Primary Care Provider] - 1-2 days Nura Madison MD [STAFF PHYSICIAN] - 1-2 days
[2024-11-24] MEDS: KETOROLAC 15 MG/ML 1 ML VIAL IVP STA (15:20)
[2024-11-24] MEDS: SODIUM CHLORIDE 0.9% 1,000 ML IV ONE (15:24)
[2024-11-24 15:27] LABS: Basophils # (A) 0.02 10*3/uL (0.00-0.10); Basophils % (A) 0.2 %; Eosinophils # (A) 0.01 10*3/uL (0.04-0.35); Eosinophils % (A) 0.1 %; HCT 46.4 % (39.6-50.0); HGB 16.1 g/dL (13.0-17.0); Lymphocytes # (A) 1.55 10*3/uL (0.90-5.00); MCHC 34.7 g/dL (32.0-37.0); MCV 80.8 fL (80.0-97.0); Monocytes # (A) 1.19 10*3/uL (0.20-1.00); Monocytes % (A) 9.9 %; Neutrophils # (A) 9.16 10*3/uL (1.80-7.70); Neutrophils % (A) 76.5 %; Platelet Count 160 10*3/uL (140-440); RBC 5.74 10*6/uL (4.40-5.60); RDW 13.2 % (11.5-14.5); WBC 11.96 10*3/uL (4.50-10.00)
[2024-11-24] MEDS: HYDROmorphone 0.5 MG/0.5 ML SYRINGE IVP STA (15:27)
[2024-11-24] MEDS: ONDANSETRON 4 MG/2 ML VIAL IVP STA (15:30)
[2024-11-24 15:47] LABS: ALT 30 U/L (4-49); AST 43 U/L (17-59); African American GFR (CKD) 43 (>60 ml/min/1.73 sqM); Albumin 4.6 g/dL (3.5-5.0); Alkaline Phosphatase 69 U/L (38-126); Anion Gap 12 mmol/L; Blood Urea Nitrogen 22 mg/dL (9-20); Calcium 9.3 mg/dL (8.4-10.2); Carbon Dioxide 21 mmol/L (22-30); Chloride 105 mmol/L (98-107); Glucose 121 mg/dL (74-99); Non-African American GFR(CKD) 38 (>60 ml/min/1.73 sqM); Potassium 4.4 mmol/L (3.5-5.1); Sodium 138 mmol/L (137-145); Total Bilirubin 1.1 mg/dL (0.2-1.3); Total Protein 7.3 g/dL (6.3-8.2)
--- NOTE | 2024-11-24 16:17 | CT ---
EXAMINATION TYPE: CT abdomen pelvis wo con DATE OF EXAM: 11/24/2024 COMPARISON: 10/25/2024 CLINICAL INDICATION: Male, 54 years old with history of urinary incontience back pains/p cholecystect sadia; PHH, Back pain, abdominal pain, Cholecystectomy done x 1 day ago TECHNIQUE: CT scan of the abdomen and pelvis is performed without oral or IV contrast. CT DLP: 707.[address] CTDI: mGy Automated exposure control for dose reduction was used. FINDINGS: Within the limitations of a non-contrast study, the following observations are made. The lungs are clear. There is surgical absence of the gallbladder. There is no biliary ductal dilatation. There is no organomegaly of the liver, pancreas, spleen or adrenal glands. There are 3 stable cysts o f the liver the largest is approximately 4.5 cm. There are no renal calcifications. There is suggestion of mild bilateral hydronephrosis. There is mod erate to marked distention of the urinary bladder and there is marked prostatic hypertrophy. The caliber of the abdominal aorta is normal and there is no retroperitoneal adenopathy or hemorrhage . The bowel loops are normal in caliber is no evidence of obstruction. No inflammatory changes are iden tified in the mesentery. There is free intraperitoneal air and air within the subcutaneous soft tissu es with some focal subcutaneous edema in the anterior abdominal wall to the left of midline. The find ings are consistent with recent surgery of cholecystectomy. The osseous structures are intact. IMPRESSION: 1. Postsurgical changes indicating recent cholecystectomy as described above. 2. Interval development of mild bilateral hydronephrosis and marked distention of the urinary bladder . There is marked prostatic hypertrophy raising the question of urinary bladder outlet obstruction. [facility], , 11/24/2024 4:15 PM
[2024-11-24 16:59] LABS: Appearance,Urine Clear (Clear); Bilirubin,Urine Negative (Negative); Blood,Urine Small (Negative); Color,Urine Colorless; Glucose,Urine (UA) Negative (Negative); Ketones,Urine Negative (Negative); Leukocyte Esterase,Urine Negative (Negative); Mucus,Urine Rare /hpf; Nitrite,Urine Negative (Negative); PH, Urine 5.5 (5.0-8.0); Protein,Urine Negative (Negative); RBC,Urine 1 /hpf (0-5); Specific Gravity,Urine 1.014 (1.001-1.035); Squamous Epithelial Cell,Urine <1 /hpf (0-4); Urobilinogen,Urine <2.0 mg/dL (<2.0); WBC,Urine 2 /hpf (0-5)
[2024-11-24] MEDS: HYDROmorphone 1 MG/ML 1 ML SYRINGE IVP STA (17:54)
[2024-11-24 18:35] VITALS: BP 149/89; PULSE 97; RESP 18; TEMP 98.7
== END 2024-11-24 18:35 | disposition home or self-care (01) ==
LOC: EC 14:13
DX: R33.9 Retention of urine, unspecified (principal); Z87.891 Personal history of nicotine dependence
CPT/HCPCS: 36415; 93005; 80053; 83605; 85025; 81001; 74176; 99284; 96375; 96376; 96361; 51702; 96374; 51798; J2405; J1171 ×2; J1885

== ENCOUNTER 2025-01-03 12:14 | Emergency (ER) | payer OTHER ==
[2025-01-03 12:19] VITALS: TEMP 98.9
--- NOTE | 2025-01-03 12:45 | ED ---
General Adult HPI - General Chief complaint: Urogenital Stated complaint: Urogenital Time Seen by Provider: 01/03/25 12:25 Source: patient, RN notes reviewed, old records reviewed Mode of arrival: ambulatory Limitations: no limitations - History of Present Illness Initial comments: 54-year-old who presents emergency department with urinary retention. Last urinated sometimes yesterday. Pulled out his urinary catheter sometime last week and has been having dribbling since. Has been having issues with urinary retention for the last 1 to 2 months. This would be his 3rd or 4th Mcclure catheter over that period of time. States he is following [facility]. Denies any acute complaints other than suprapubic abdominal discomfort. They believe that his urinary retention is likely secondary to prostate issues. Denies any fevers, chills, cough, diarrhea, constipation, nausea, vomiting. No other acute complaints. Presents for further evaluation. - Related Data Home Medications Medication Instructions Recorded Confirmed lisinopriL [Zestril] 20 mg PO HS 04/15/20 08/27/24 Aspirin 81 mg PO ONCE 06/25/24 08/27/24 Metoprolol Tartrate [Lopressor] 25 mg PO DAILY 06/25/24 08/27/24 Allergies Allergy/AdvReac Type Severity Reaction Status Date / Time No Known Allergies Allergy Verified 01/03/25 12:19 Review of Systems ROS Statement: Those systems with pertinent positive or pertinent negative responses have been documented in the HPI. Review of Systems: CONST: Denies fever EYES: Denies blurry vision ENT: Denies nasal congestion C/V: Denies Chest pain RESP: Denies shortness of breath GI: Denies abdominal pain : Endorses urinary retention SKIN: Denies rash. MSK: Denies joint pain. NEURO: Denies headache ROS Other: All systems not noted in ROS Statement are negative. Past Medical History Past Medical History: GERD/Reflux, Hypertension, Sleep Apnea/CPAP/BIPAP, Supraventricular Tachycardia (SVT) Additional Past Medical History / Comment(s): Hx Colitis and headaches, SVT, v ertigo, uses CPAP, wide complex VT during stress test 06/19/24 - sent to ER History of Any Multi-Drug Resistant Organisms: None Reported Past Surgical History: No Surgical Hx Reported Additional Past Surgical History / Comment(s): colonoscopy, EP study Past Anesthesia/Blood Transfusion Reactions: No Reported Reaction, Motion Sickness Additional Past Anesthesia/Blood Transfusion Reaction / Comment(s): never received blood Past Psychological History: Anxiety, Depression Smoking Status: Former smoker Past Alcohol Use History: Occasional Past Drug Use History: None Reported - Past Family History Mother Family Medical History: Diabetes Mellitus, Fibromyalgia Additional Family Medical History / Comment(s): "heart problems", Father Family Medical History: Cancer, Pneumonia Additional Family Medical History / Comment(s): home O2, prostate CA General Exam - General Exam Comments Initial Comments: General: Appears in mild distress secondary to urinary tension. HEAD: Normal with no signs of head trauma. EYES: EOMI ENT: Hearing grossly intact, normal oropharynx. RESPIRATORY: Clear breath sounds bilaterally. No wheezes, rales, or rhonchi. C/V: Regular rate and rhythm. S1 and S2 auscultated, peripheral pulses 2+ and intact throughout ABD: Abdomen is soft, nontender. Distended somewhat in the suprapubic region which fits with his history of urinary retention. EXT: No obvious deformity SKIN: No rashes or lesions observed on exposed skin. NEURO: Alert and orient x 4. Limitations: no limitations Course Vital Signs 01/03/25 01/03/25 12:15 14:29 Temperature 98.9 F Pulse Rate 105 H 98 Respiratory 22 20 Rate Blood Pressure 175/97 145/84 O2 Sat by Pulse 99 97 Oximetry Medical Decision Making - Medical Decision Making Was pt. sent in by a medical professional or institution (, PA, SEALING MACHINE OPERATOR, urgent care, hospital, or [place] [facility] facility...) When possible be specific @ -No Did you speak to anyone other than the patient for history (EMS, parent, family, police, friend...)? What history was obtained from this source @ -No Did you review nursing and triage notes (agree or disagree)? Why? @ -I reviewed and agree with nursing and triage notes Were old charts reviewed (outside hosp., previous admission, EMS record, old EKG, old radiological studies, urgent care reports/EKG's, [place] [facility] facility records)? Report findings @ -Reviewed chart from November 2024 when patient presented for similar complaints. Was discharged home with a Mcclure catheter at that time. Differential Diagnosis (chest pain, altered mental status, abdominal pain women, abdominal pain men, vaginal bleeding, weakness, fever, dyspnea, syncope, headache, dizziness, GI bleed, back pain, seizure, CVA, palpatations, mental health, musculoskeletal)? @ -Urinary retention, BPH, UTI, GIOVANY. This list is not all inclusive. EKG interpreted by me (3pts min.). @ -None done X-rays interpreted by me (1pt min.). @ -None done CT interpreted by me (1pt min.). @ -None done U/S interpreted by me (1pt. min.). @ -None done What testing was considered but not performed or refused? (CT, X-rays, U/S, labs)? Why? @ -None What meds were considered but not given or refused? Why? @ -None Did you discuss the management of the patient with other professionals (professionals i.e. , PA, SEALING MACHINE OPERATOR, lab, RT, psych nurse, social media sr strategy manager, operating room assistant, teacher, security public safety officer, embedded case manager)? Give summary @ -No Was smoking cessation discussed for >3mins.? @ -No Was critical care preformed (if so, how long)? @ -No Were there social determinants of health that impacted care today? How? (Homelessness, low income, unemployed, alcoholism, drug addiction, transportation, low edu. Level, literacy, decrease access to med. care, assisted, rehab)? @ -No Was there de-escalation of care discussed even if they declined (Discuss DNR or withdrawal of care, Hospice)? DNR status @ -No What co-morbidities impacted this encounter? (DM, HTN, Smoking, COPD, CAD, Cancer, CVA, ARF, Chemo, Hep., AIDS, mental health diagnosis, sleep apnea, mor bid obesity)? @ -Urinary retention Was patient admitted / discharged? Hospital course, mention meds given and route, prescriptions, significant lab abnormalities, going to OR and other pertinent info. @ -Patient presents for urinary retention. Has a history of this. Has required multiple Mcclure catheters over the last 4 to 6 weeks. Has been following up with urology outpatient. Vitals are within acceptable limits. Patient is unable to urinate. Bladder scan shows over 500 cc of urine in his bladder. Mcclure catheter will be placed. He was in agreement this plan. We will obtain basic labs as well as urinalysis. He will be given a small 500 cc fluid bolus. Mcclure catheter placed in his feeling improved. Laboratory studies all within acceptable limits. Updated the patient. He will be discharged home with instructions to follow-up with urology. He was in agreement this plan. Strict return precautions discussed. Discharged home with Mcclure in place. I instructed the patient to follow up with their PCP in the next 1-3 days. I explained that the patient should return to the emergency department if they experience any worsening symptoms. Strict return precautions were discussed with the patient. The patient expressed understanding of these instructions. I answered all questions that the patient had. The patient was discharged home in good condition with their prescriptions and follow up information. Undiagnosed new problem with uncertain prognosis? @ -No Drug Therapy requiring intensive monitoring for toxicity (Heparin, Nitro, Insulin, Cardizem)? @ -No Were any procedures done? @ -No Diagnosis/symptom? @ -Urinary retention requiring Mcclure catheter placement Acute, or Chronic, or Acute on Chronic? @ -Acute on chronic Uncomplicated (without systemic symptoms) or Complicated (systemic symptoms)? @ -Uncomplicated Side effects of treatment? @ -None Exacerbation, Progression, or Severe Exacerbation] @ -No Poses a threat to life or bodily function? @ -Unlikely at this time - Lab Data Result diagrams: 01/03/25 13:16 01/03/25 13:16 Lab Results 01/03/25 01/03/25 01/03/25 Range/Units 12:46 13:16 13:16 WBC 8.61 (4.50-10.00) 10*3/uL RBC 5.48 (4.40-5.60) 10*6/uL Hgb 15.0 (13.0-17.0) g/dL Hct 43.7 (39.6-50.0) % MCV 79.7 L (80.0-97.0) fL MCH 27.4 (27.0-32.0) pg MCHC 34.3 (32.0-37.0) g/dL Plt Count 225 (140-440) 10*3/uL MPV 10.9 (9.5-12.2) fL Immature Gran % (Auto) 0.2 % Neutrophils % 80.3 % Lymphocytes % 13.6 % Monocytes % 5.3 % Eosinophils % 0.3 % Basophils % 0.3 % Immature Gran # 0.02 (0.00-0.04) 10*3/uL Neutrophils # 6.90 (1.80-7.70) 10*3/uL Lymphocytes # 1.17 (0.90-5.00) 10*3/uL Monocytes # 0.46 (0.20-1.00) 10*3/uL Eosinophils # 0.03 L (0.04-0.35) 10*3/uL Basophils # 0.03 (0.00-0.10) 10*3/uL Sodium 140 (137-145) mmol/L Potassium 3.7 (3.5-5.1) mmol/L Chloride 106 (98-107) mmol/L Carbon Dioxide 20 L (22-30) mmol/L Anion Gap 14 mmol/L BUN 18 (9-20) mg/dL Creatinine 1.21 (0.66-1.25) mg/dL Est GFR (CKD-EPI)AfAm 79 (>60 ml/min/1.73 sqM) Est GFR (CKD-EPI)NonAf 69 (>60 ml/min/1.73 sqM) Glucose 110 H (74-99) mg/dL Calcium 9.2 (8.4-10.2) mg/dL Urine Color Yellow Urine Appearance Clear (Clear) Urine pH 6.0 (5.0-8.0) Ur Specific [place] 1.024 (1.001-1.035) Urine Protein Negative (Negative) Urine Glucose (UA) Negative (Negative) Urine Ketones Negative (Negative) Urine Blood Negative (Negative) Urine Nitrite Negative (Negative) Urine Bilirubin Negative (Negative) Urine Urobilinogen <2.0 (<2.0) mg/dL Ur Leukocyte Esterase Negative (Negative) Disposition Clinical Impression: Urinary retention, Status post insertion of Mcclure catheter Disposition: HOME SELF-CARE Condition: Good Instructions (If sedation given, give patient instructions): Urinary Retention in Men (ED) Is patient prescribed a controlled substance at d/c from ED?: No Referrals: Belkis Mares DO [Primary Care Provider] - 1-2 days Bora Morrow MD [STAFF PHYSICIAN] - 1-2 days Time of Disposition: 14:20
[2025-01-03 13:01] LABS: Bilirubin,Urine Negative (Negative); Blood,Urine Negative (Negative); Color,Urine Yellow; Glucose,Urine (UA) Negative (Negative); Ketones,Urine Negative (Negative); Leukocyte Esterase,Urine Negative (Negative); Nitrite,Urine Negative (Negative); PH, Urine 6.0 (5.0-8.0); Protein,Urine Negative (Negative); Specific Gravity,Urine 1.024 (1.001-1.035); Urobilinogen,Urine <2.0 mg/dL (<2.0)
[2025-01-03] MEDS: SODIUM CHLORIDE 0.9% 500 ML 500 ML IV ONE (13:08)
[2025-01-03 13:33] LABS: Basophils # (A) 0.03 10*3/uL (0.00-0.10); Basophils % (A) 0.3 %; Eosinophils # (A) 0.03 10*3/uL (0.04-0.35); Eosinophils % (A) 0.3 %; HCT 43.7 % (39.6-50.0); HGB 15.0 g/dL (13.0-17.0); Lymphocytes # (A) 1.17 10*3/uL (0.90-5.00); Lymphocytes % (A) 13.6 %; MCH 27.4 pg (27.0-32.0); MCHC 34.3 g/dL (32.0-37.0); MCV 79.7 fL (80.0-97.0); Monocytes # (A) 0.46 10*3/uL (0.20-1.00); Monocytes % (A) 5.3 %; Neutrophils # (A) 6.90 10*3/uL (1.80-7.70); Neutrophils % (A) 80.3 %; Platelet Count 225 10*3/uL (140-440); RBC 5.48 10*6/uL (4.40-5.60); RDW 12.6 % (11.5-14.5); WBC 8.61 10*3/uL (4.50-10.00)
[2025-01-03] MEDS: KETOROLAC 15 MG/ML 1 ML VIAL IVP STA (13:52)
[2025-01-03 14:16] LABS: African American GFR (CKD) 79 (>60 ml/min/1.73 sqM); Anion Gap 14 mmol/L; Blood Urea Nitrogen 18 mg/dL (9-20); Calcium 9.2 mg/dL (8.4-10.2); Carbon Dioxide 20 mmol/L (22-30); Chloride 106 mmol/L (98-107); Glucose 110 mg/dL (74-99); Non-African American GFR(CKD) 69 (>60 ml/min/1.73 sqM); Potassium 3.7 mmol/L (3.5-5.1); Sodium 140 mmol/L (137-145)
[2025-01-03 14:32] VITALS: BP 145/84; PULSE 98; RESP 20
== END 2025-01-03 14:32 | disposition home or self-care (01) ==
LOC: EC 12:14
DX: R33.9 Retention of urine, unspecified (principal); Z87.891 Personal history of nicotine dependence
CPT/HCPCS: 51798; 36415; 80048; 85025; 81003; 99283; 96374; 51702; J1885